=== PATIENT | male | born 1960 | race Caucasian/White ===

== ENCOUNTER 2018-10-08 16:53 | Inpatient (IN) ==
[2018-10-08] MEDS ORDERED: ASPIRIN PO ONE (17:08)
--- NOTE | 2018-10-08 18:02 | Diag Imaging Result Doc PS360 ---
EXAM: CHEST-2 VIEWS 10/08/2018 HISTORY: chest pain TECHNIQUE: PA and lateral chest COMMENT: There is diffuse interstitial opacity throughout the left lung with denser areas of ill-defined opacity in the base. There is dense opacification of the right lower lobe and there is blunting of the right costophrenic angle. The heart size and pulmonary vascularity are within normal limits. These findings were not present on 08/21/2015. IMPRESSION: Pneumonia with possible pulmonary edema and dense lobar pneumonia in the right lower lobe. Right pleural effusion. Advise follow-up until clear. Electronically signed by Anthony Bustamante 10/08/2018 5:59 PM
[2018-10-08 18:05] LABS: INR 0.97; PROTIME 13.4 Seconds (11.0-16.0)
[2018-10-08 18:06] LABS: PTT 36.5 Seconds (22.3-41.8)
[2018-10-08 18:19] LABS: ESTIMATED GFR > 60
[2018-10-08] MEDS ORDERED: ROCEPHIN 1 GM in NS 50 ML IV ONE (18:19)
[2018-10-08] MEDS ORDERED: ZITHROMAX 500 MG/NS 500 MG/250 ML IVPB IV ONE (18:19)
[2018-10-08 18:22] LABS: BE 2.8 mmoll (-3.0-3.0); BLOOD TYPE ARTERIAL; HCO3-(ACT) 26.8 mmoll (20.0-26.0); O2(CT) 17.4 mL/dL (15.0-23.0); PCO2(98.6) 35 mmHg (35-45); SAMPLE BLOOD; SAO2 90.8 % (95.0-100.0); THB 14.2 g/dL (11.5-17.4); pH(98.6) 7.48 (7.35-7.45)
[2018-10-08 18:30] LABS: AGAP 16; ALBUMIN 2.5 g/dL (3.5-5.0); ALKALINE PHOSPHATASE 52 U/L (32-122); BUN 14 mg/dL (8-22); CHLORIDE 81 mmol/L (98-107); CK PROFILE 29 U/L (24-204); COSMO 245; GLUCOSE 103 mg/dL (70-104); GOT 27 U/L (10-34); GPT 13 U/L (10-44); POTASSIUM 2.9 mmol/L (3.5-5.1); SODIUM 121 mmol/L (136-145); TCO2 24 mmol/L (25-35)
[2018-10-08] MEDS ORDERED: DUONEB (A & A) INH ONE ×2 (18:43→20:32)
[2018-10-08] MEDS ORDERED: KLOR-CON PO ONE (18:57)
[2018-10-08] MEDS ORDERED: NS 1,000 ML IV ONE (18:57)
--- NOTE | 2018-10-08 19:11 | EKG Report ---
Test Performed on : 10/08/2018 5:10:39 PM Test Reason : chest pain Blood Pressure : / mmHG Vent. Rate : 126 BPM Atrial Rate : 159 BPM P-R Int : 168 ms QRS Dur : 090 ms QT Int : 288 ms P-R-T Axes : 075 029 069 degrees QTc Int : 417 ms Sinus tachycardia. with premature atrial complexes. Otherwise normal ECG No previous ECGs available Unconfirmed Result
[2018-10-08 19:15] LABS: PO2(98.6) 49 mmHg (60-100)
[2018-10-08 19:23] LABS: ALLEN TEST YES; MODALITY CANNULA
[2018-10-08 19:24] LABS: O2HB 87.4 % (95.0-99.0)
[2018-10-08] MEDS ORDERED: NS 1,000 ML ONE (19:39)
[2018-10-08] MEDS ORDERED: NS 500 ML IV ONE (19:47)
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
[2018-10-08 20:14] LABS: EOS# 0.02 X1000 (0.0-0.7); EOS% 0.8 % (0.0-10.0); HEMATOCRIT 36.6 % (42.0-52.0); HEMOGLOBIN 13.9 g/dL (14.0-18.0); IMM GRAN# 0.02 X1000 (0.0-0.04); IMM GRAN% 0.8 % (0.0-0.5); LYMPH# 0.17 X1000 (1.2-3.4); LYMPH% 6.7 % (20.5-51.1); MCH 33.1 PG (27-31); MCV 87.1 FL (81-99); MONO# 0.03 X1000 (0.11-0.59); MONO% 1.2 % (1.7-9.3); MPV 9.2 FL (7.4-10.4); NEUT# 2.28 X1000 (1.4-6.5); NEUT% 90.5 % (42.2-75.2); PLT 315 X1000 (130-400); RDW 12.1 % (11.5-14.5); WBC 2.52 X1000 (4.8-10.8)
[2018-10-08 20:20] LABS: BANDS 16 % (0-1); HYPOCHROM 3+; LYMPHS 6 % (21-51); MONO 4 % (1-9); SEGS 74 % (42-75)
[2018-10-08 20:21] LABS: LARGE PLATELETS 2+
[2018-10-08] MEDS ORDERED: LANOXIN IV ONE (21:47)
--- NOTE | 2018-10-08 21:50 | EKG Report ---
Test Performed on : 10/08/2018 9:40:34 PM Test Reason : tachycardia Blood Pressure : / mmHG Vent. Rate : 163 BPM Atrial Rate : 159 BPM P-R Int : 000 ms QRS Dur : 094 ms QT Int : 284 ms P-R-T Axes : 000 026 057 degrees QTc Int : 467 ms Atrial fibrillation. with rapid ventricular response. Nonspecific T wave abnormality Abnormal ECG When compared with ECG of 08-OCT-2018 21:39, (Unconfirmed) No significant change was found Unconfirmed Result
[2018-10-08] MEDS ORDERED: DOXYCYCLINE 100 MG in NS 250 ML IV SCH (22:15)
[2018-10-08] MEDS ORDERED: CARDIZEM 125/NS 125 MG/125 ML IVPB ONE (22:20)
[2018-10-08] MEDS: CARDIZEM 100 MG/NS 100 MG/100 ML IVPB IV SCH ×2 (22:35→23:38)
[2018-10-08] MEDS ORDERED: NICODERM PATCH ONE (23:30)
[2018-10-08] MEDS ORDERED: NICODERM PATCH TD ONE (23:30)
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
[2018-10-09] MEDS: LIBRIUM PO SCH ×4 (01:31→21:49)
[2018-10-09] MEDS: FLAGYL 500 MG/NS 500 MG/100 ML IVPB IV SCH ×3 (01:31→13:54)
[2018-10-09] MEDS ORDERED: CARDIZEM 125 MG/D5W 125 MG/125 ML IVPB ONE (03:38)
[2018-10-09] MEDS ORDERED: CARDIZEM 125 MG/D5W 125 MG/125 ML IVPB IV SCH (05:42)
[2018-10-09] MEDS ORDERED: ATROPINE SYRINGE ONE ×2 (06:50→12:15)
[2018-10-09] MEDS ORDERED: EPINEPHRINE SYRINGE ONE ×2 (06:50→12:15)
[2018-10-09] MEDS ORDERED: AMIDATE ONE (06:53)
[2018-10-09] MEDS ORDERED: QUELICIN ONE (06:53)
[2018-10-09] MEDS ORDERED: DIPRIVAN 1% 1,000 MG/100 ML BOTTLE ONE ×2 (06:54→10:08)
[2018-10-09 07:19] LABS: HEMATOCRIT 40.5 % (42.0-52.0); HEMOGLOBIN 15.2 g/dL (14.0-18.0); MCHC 37.5 g/dL (33-37); MPV 9.1 FL (7.4-10.4); RBC 4.6 XMIL (4.7-6.1); RDW 12.3 % (11.5-14.5); WBC 3.43 X1000 (4.8-10.8)
--- NOTE | 2018-10-09 07:20 | Diag Imaging Result Doc PS360 ---
EXAM: CHEST-PORTABLE - 10/09/2018 HISTORY: pneumonia TECHNIQUE: Portable chest COMPARISON: 10/08/2018 FINDINGS: There is right lower lung consolidation similar to prior. There is apparent underlying right pleural effusion. There is increased consolidation at the mid to lower left lung compared to prior. There is no pneumothorax identified. The heart borders are largely obscured by consolidation. IMPRESSION: Right lower lung consolidation, with apparent underlying pleural effusion, similar to prior. Increased consolidation at the mid and lower left lung. Electronically signed by Clarke Prather 10/09/2018 7:18 AM
[2018-10-09] MEDS ORDERED: ATROPINE IV ONE (07:25)
[2018-10-09] MEDS ORDERED: AMIDATE IV ONE (07:25)
[2018-10-09] MEDS ORDERED: QUELICIN IV ONE (07:25)
[2018-10-09] MEDS ORDERED: EPINEPHRINE SYRINGE IV ONE (07:25)
[2018-10-09 07:40] LABS: BLOOD TYPE ARTERIAL; METHB 0.5 % (0.0-1.5); O2(CT) 23.9 mL/dL (15.0-23.0); O2HB 93.2 % (95.0-99.0); PO2(98.6) 90 mmHg (60-100); SAMPLE BLOOD; SAO2 95.9 % (95.0-100.0); SRATE 14 BPM; THB 18.2 g/dL (11.5-17.4); TVOL 600 mL
[2018-10-09 08:02] LABS: HCO3-(ACT) 15.5 mmoll (20.0-26.0); PCO2(98.6) 94 mmHg (35-45); pH(98.6) 6.99 (7.35-7.45)
[2018-10-09 08:03] LABS: BE -11.9 mmoll (-3.0-3.0); MODALITY VENTILATOR
[2018-10-09 08:04] LABS: ALLEN TEST YES
[2018-10-09 08:25] LABS: ESTIMATED GFR > 60
[2018-10-09 08:27] LABS: AGAP 18; ALBUMIN 2.2 g/dL (3.5-5.0); ALKALINE PHOSPHATASE 58 U/L (32-122); BUN 14 mg/dL (8-22); CALCIUM 7.7 mg/dL (8.8-10.2); CHLORIDE 87 mmol/L (98-107); COSMO 253; CREATININE 0.8 mg/dL (0.7-1.2); GLUCOSE 83 mg/dL (70-104); GOT 40 U/L (10-34); GPT 15 U/L (10-44); SODIUM 126 mmol/L (136-145); TCO2 22 mmol/L (25-35); TOTAL PROTEIN 5.9 g/dL (6.3-8.3)
[2018-10-09] MEDS ORDERED: VANCOMYCIN IV PER PHARMACY MISC SCH (09:00)
[2018-10-09] MEDS: NEO-SYNEPHRINE 50 MG in NS 250 ML IV SCH ×2 (09:05→19:23)
[2018-10-09] MEDS ORDERED: DUONEB (A & A) INH PRN (09:43)
[2018-10-09] MEDS: NS 1,000 ML IV SCH ×2 (10:00→17:06)
[2018-10-09] MEDS ORDERED: VANCOMYCIN 2,000 MG in NS 500 ML IV ONE (10:00)
[2018-10-09 10:15] LABS: BLOOD TYPE ARTERIAL; SAMPLE BLOOD
--- NOTE | 2018-10-09 10:21 | Diag Imaging Result Doc PS360 ---
EXAM: CHEST-PORTABLE - 10/09/2018 HISTORY: Line Placement TECHNIQUE: Portable chest COMPARISON: Prior exam of 10/09/2018 FINDINGS: There has been interval insertion of an endotracheal tube. The dion is somewhat indistinct, but the tip of the endotracheal tube appears be located approximately 7.5 cm above the dion. There has been interval insertion of a nasogastric tube, which can be followed to the mid stomach. Inspiration is deeper compared to prior. There is right lower lung infiltrate similar to prior. Infiltrate at the mid and lower left lung appears mildly decreased compared to prior, but this may be exaggerated by the deeper inspiration. There is no pneumothorax identified. Heart size appears normal. IMPRESSION: Tip of endotracheal tube in satisfactory position approximately 7.5 cm above dion. Nasogastric tube extending to mid stomach. Bilateral infiltrates similar to prior, allowing for deeper inspiration on the current exam. Electronically signed by Clarke Prather 10/09/2018 10:19 AM
[2018-10-09 11:02] LABS: BE -5.9 mmoll (-3.0-3.0); HCO3-(ACT) 20.3 mmoll (20.0-26.0); METHB 1.3 % (0.0-1.5); O2(CT) 19.3 mL/dL (15.0-23.0); O2HB 95.2 % (95.0-99.0); PCO2(98.6) 53 mmHg (35-45); PO2(98.6) 109 mmHg (60-100); SAO2 98.2 % (95.0-100.0); SRATE 20 BPM; THB 14.3 g/dL (11.5-17.4); TVOL 560 mL; pH(98.6) 7.23 (7.35-7.45)
[2018-10-09 11:04] LABS: MODALITY VENTILATOR
[2018-10-09 11:05] LABS: ALLEN TEST YES
[2018-10-09] MEDS: DUONEB (A & A) INH SCH ×4 (12:00→23:30)
[2018-10-09 12:34] LABS: ESTIMATED GFR > 60
[2018-10-09 12:51] LABS: AGAP 15; BUN 18 mg/dL (8-22); CALCIUM 7.1 mg/dL (8.8-10.2); CHLORIDE 89 mmol/L (98-107); COSMO 257; CREATININE 0.9 mg/dL (0.7-1.2); GLUCOSE 91 mg/dL (70-104); SODIUM 127 mmol/L (136-145); TCO2 23 mmol/L (25-35)
[2018-10-09] MEDS: DIPRIVAN 1% 1,000 MG/100 ML BOTTLE IV SCH ×3 (12:58→19:21)
[2018-10-09] MEDS ORDERED: DOXYCYCLINE 100 MG in NS 250 ML IV SCH (14:00)
[2018-10-09] MEDS ORDERED: ROCEPHIN 1 GM in NS 50 ML IV SCH (18:00)
[2018-10-09 18:10] LABS: URINE SOURCE CATH
[2018-10-09 18:15] LABS: BILIRUBIN URINE NEGATIVE (NEGATIVE); BLOOD URINE NEGATIVE (NEGATIVE); COLOR YELLOW; GLUCOSE URINE NEGATIVE (NEGATIVE); KETONE URINE NEGATIVE (NEGATIVE); LEUKOCYTES URINE NEGATIVE (NEGATIVE); NITRITE URINE NEGATIVE (NEGATIVE); PH URINE 5.5; PROTEIN URINE 30 mg/dL (NEGATIVE); SP GRAVITY URINE 1.008; TURBIDITY URINE HAZY (CLEAR); UROBILINOGEN URINE NORMAL (NORMAL)
[2018-10-09 18:18] LABS: UR EPITHELIAL CELLS <10 /HPF (<10); URINE BACTERIA NEGATIVE /HPF; URINE RBC <10 /HPF (<10); URINE WBC <10 /HPF (<10)
[2018-10-09] MEDS ORDERED: MAXIPIME 1 GM in NS 50 ML IV SCH (18:30)
[2018-10-09 18:35] LABS: URINE YEAST NONE SEEN
[2018-10-09 18:36] LABS: URINE CASTS GRANULAR PRESENT; URINE CRYSTALS NONE SEEN; URINE SMALL ROUND CELLS NONE SEEN
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
--- NOTE | 2018-10-09 20:27 | PROVIDER PROGRESS NOTE ---
Progress Note Case evaluated. Full dictation to follow.
[2018-10-09 21:03] LABS: AGAP 15; BUN 20 mg/dL (8-22); CHLORIDE 92 mmol/L (98-107); COSMO 260; CREATININE 1.1 mg/dL (0.7-1.2); ESTIMATED GFR > 60; GLUCOSE 72 mg/dL (70-104); POTASSIUM 3.5 mmol/L (3.5-5.1); SODIUM 129 mmol/L (136-145); TCO2 22 mmol/L (25-35)
[2018-10-09 21:06] LABS: CALCIUM 6.7 mg/dL (8.8-10.2)
[2018-10-09] MEDS ORDERED: ATIVAN IV PRN (21:31)
[2018-10-09] MEDS ORDERED: ATIVAN IV ONE (21:35)
[2018-10-09] MEDS: LEVAQUIN 500 MG/D5W 500 MG/100 ML IVPB IV SCH (21:49)
[2018-10-09] MEDS: M.V.I.-12 10 ML, FOLIC ACID 1 MG, MAGNESIUM SULFATE 1 GM, THIAMINE 100 MG in NS 1,000 ML IV SCH (21:49)
[2018-10-09] MEDS: PROTONIX IV SCH (21:50)
[2018-10-09] MEDS: SODIUM CHLORIDE 0.9% INJ SCH (21:50)
[2018-10-09] MEDS: ATIVAN 20 MG in NS 190 ML IV SCH (21:55)
[2018-10-09 22:56] LABS: ALBUMIN 2.1 g/dL (3.5-5.0); MAGNESIUM 1.7 mg/dL (1.5-2.7)
--- NOTE | 2018-10-09 23:08 | CONSULTATION ---
DATE OF CONSULTATION: 10/09/2018 REQUESTING PROVIDER: YING Kelly. REASON FOR CONSULTATION: Intubated, respiratory failure. HISTORY OF PRESENT ILLNESS: This is a 57-year-old male with no significant medical history. He presented to the [facility] ER yesterday afternoon with worsening chest pain and shortness of breath for 1 week. Initial workup in the ER revealed right lower lobe pneumonia, electrolyte abnormalities, leukopenia, supraventricular tachycardia, and bacteremia. He had been admitted to the [facility] ICU for further evaluation and management. Early this morning, at 6:42 a.m., the patient was found with cardiac arrest. He regained in 2 minutes after 1 mg of Epi and 1 mg of atropine. He was intubated and sedated with propofol since then. This afternoon at 4 p.m., he was transferred to our facility. At the time of my examination, patient is still intubated and sedated with no acute distress. The patient's brother and son are at the bedside. They reports that patient has been coughing for years; patient is a heavy smoker and a heavy drinker. PHYSICAL EXAMINATION: General: The patient appears chronically ill and disheveled. HEENT: Atraumatic. Trachea midline. ET tube in place. Mucosa pink and dry. Respiratory: Mechanically ventilated. Symmetrical excursion. Auscultation reveals coarse breathing sounds with rhonchi and inspiratory crackles bilaterally. Cardiovascular: Irregularly irregular with S1 and S2 noted. Gastrointestinal: Bowel sounds present in all 4 quadrants. Soft and mild, distended. Extremities: No pedal edema. No cyanosis. No clubbing. Neurologic: Sedated and unresponsive to verbal or physical stimuli. LAB DATA: White blood cells 3.43, hemoglobin 15.2, hematocrit 40.5, platelets 344,000. Sodium 127, potassium 3.0, chloride 89, carbon dioxide 23, BUN 18, creatinine 0.9. Glucose 91. ABG, pH 7.23, pCO2 of 53, pO2 of 109, HCO3 is 20.3, base excess -5.9, oxyhemoglobin 95.2, and lactate 3. IMAGING DATA: Chest x-ray revealed stable right lower lung infiltrates with mildly decreased infiltrate at the mid and lower left lung. ASSESSMENT: This is a 57-year-old male with no significant medical history. He has been transferred from [facility] ICU status post cardiac arrest. He was initially admitted to the [facility] ICU with right lower lobe pneumonia, electrolyte abnormalities secondary to beer potomania, leukopenia, supraventricular tachycardia, and bacteremia 1. Acute hypoxemic hypercapnic respiratory failure requiring intubation. 2. Status post cardiac arrest. 3. Right lower lobe pneumonia. 4. Septic shock. 5. Tobacco abuse. 6. Alcohol abuse. PLAN: 1. Continue mechanical ventilator and we will start weaning trials when appropriate. 2. Continue antibiotics per Dr. Cruz. 3. Continue phenylephrine as needed and fluid replacement. Be cautious with fluid replacement. ProBNP 1764 yesterday. 4. Follow up with ABG, CBC, BMP, and chest x-ray. 5. Continue GI and DVT prophylaxis. 6. Further recommendations pending hospital course. Thank you for the courtesy of this consult. Dictated by YING Tafoya for Ivania Hernandez MD cc: YING Tafoya MD [facility]
[2018-10-09] MEDS ORDERED: CALCIUM GLUCONATE 1 GM in NS 50 ML IV ONE (23:54)
[2018-10-10] MEDS ORDERED: DOXYCYCLINE 100 MG in NS 250 ML IV SCH (02:00)
[2018-10-10] MEDS: DUONEB (A & A) INH SCH ×6 (03:30→23:30)
[2018-10-10] MEDS: VANCOMYCIN 1,700 MG in NS 250 ML IV SCH ×2 (03:44→22:09)
[2018-10-10] MEDS: LIBRIUM PO SCH ×4 (03:46→22:14)
[2018-10-10] MEDS ORDERED: VANCOMYCIN 1,700 MG in NS 250 ML IV SCH (04:00)
[2018-10-10 05:24] LABS: ALLEN TEST YES; BLOOD TYPE ARTERIAL; HCO3-(ACT) 20.7 mmoll (20.0-26.0); METHB 1.8 % (0.0-1.5); O2(CT) 15.9 mL/dL (15.0-23.0); PCO2(98.6) 50 mmHg (35-45); PO2(98.6) 53 mmHg (60-100); SAMPLE BLOOD; SRATE 20 BPM; THB 13.2 g/dL (11.5-17.4); TVOL 500 mL; pH(98.6) 7.26 (7.35-7.45)
[2018-10-10 05:25] LABS: MODALITY VENTILATOR
[2018-10-10] MEDS: CARDIZEM 125 MG/D5W 125 MG/125 ML IVPB IV SCH ×3 (05:55→20:33)
[2018-10-10] MEDS: NS 1,000 ML IV SCH (05:59)
[2018-10-10 06:30] LABS: ESTIMATED GFR > 60
[2018-10-10] MEDS ORDERED: D50W SYRINGE IV ONE (06:42)
[2018-10-10] MEDS ORDERED: D50W SYRINGE ONE (06:47)
[2018-10-10 07:04] LABS: AGAP 11; ALB/GLOB RATIO 0.4; ALBUMIN 1.5 g/dL (3.5-5.0); ALKALINE PHOSPHATASE 61 U/L (32-122); BUN 20 mg/dL (8-22); CALCIUM 7.5 mg/dL (8.8-10.2); CHLORIDE 94 mmol/L (98-107); COSMO 256; CREATININE 1.1 mg/dL (0.7-1.2); GLUCOSE 62 mg/dL (70-104); GOT 36 U/L (10-34); GPT 11 U/L (10-44); POTASSIUM 3.1 mmol/L (3.5-5.1); SODIUM 127 mmol/L (136-145); TCO2 22 mmol/L (25-35); TOTAL BILIRUBIN 0.32 mg/dL (0.20-1.00); TOTAL PROTEIN 4.9 g/dL (6.3-8.3)
[2018-10-10] MEDS: NEO-SYNEPHRINE 50 MG in NS 250 ML IV SCH ×2 (07:22→18:06)
[2018-10-10] MEDS: ATIVAN 20 MG in NS 190 ML IV SCH ×3 (07:22→19:27)
--- NOTE | 2018-10-10 07:38 | Diag Imaging Result Doc PS360 ---
CHEST-1 VIEW - 10/10/2018 INDICATION: SOB COMPARISON: 10/09/2018 FINDINGS: The endotracheal tube is higher than on the previous film, now at T1. Nasogastric tube is in stable position in the stomach. There has been worsening in the dense bibasilar infiltrates. There is a moderate right and small left pleural effusion. IMPRESSION: 1. Endotracheal tube is higher on this exam now at T1. 2. Worsening bibasilar infiltrates. Electronically signed by Mateo Campos 10/10/2018 7:36 AM
[2018-10-10 07:40] LABS: BASO# 0.01 X1000 (0.0-0.2); BASO% 0.1 % (0.0-0.8); EOS# 0.04 X1000 (0.0-0.7); EOS% 0.3 % (0.0-10.0); HEMOGLOBIN 13.1 g/dL (14.0-18.0); IMM GRAN# 0.15 X1000 (0.0-0.04); IMM GRAN% 1.1 % (0.0-0.5); LYMPH# 0.16 X1000 (1.2-3.4); LYMPH% 1.2 % (20.5-51.1); MCH 32.9 PG (27-31); MCHC 36.4 g/dL (33-37); MCV 90.5 FL (81-99); MONO# 0.08 X1000 (0.11-0.59); MONO% 0.6 % (1.7-9.3); MPV 9.3 FL (7.4-10.4); NEUT# 12.95 X1000 (1.4-6.5); NEUT% 96.7 % (42.2-75.2); PLT 180 X1000 (130-400); RBC 3.98 XMIL (4.7-6.1); RDW 12.6 % (11.5-14.5); WBC 13.39 X1000 (4.8-10.8)
[2018-10-10] MEDS ORDERED: NS 1,000 ML IV SCH (07:55)
[2018-10-10] MEDS ORDERED: LASIX IV ONE (07:59)
[2018-10-10] MEDS ORDERED: NS 250 ML ONE (08:14)
[2018-10-10 08:15] LABS: LYMPHS 1 % (21-51); SEGS 99 % (42-75)
[2018-10-10] MEDS: POTASSIUM CHLORIDE 20 MEQ/SWI 20 MEQ/100 ML IVPB IV SCH ×2 (08:20→10:21)
[2018-10-10] MEDS: LEVAQUIN 500 MG/D5W 500 MG/100 ML IVPB IV SCH (08:21)
--- NOTE | 2018-10-10 08:30 | PROGRESS NOTE ---
DATE: 10/10/2018 SUBJECTIVE: This patient is still on mechanical ventilation and sedated. At this moment, he is in atrial fibrillation with rapid ventricular response, Cardiology department has been consulted. We have a positive blood culture that showed gram-positive cocci, a sputum culture also showed gram-positive cocci. He does have some bilateral worsening bilateral infiltrate. I will decrease the rate of the IV fluids. I have requested an evaluation by the dietitian to put this patient on a tube feeding, sodium and potassium level are low, I will replace the potassium. He is on pressors. He seems to have poor prognosis. OBJECTIVE: Vital Signs: Temperature 98.6 degrees, pulse 133, respiratory rate 34, blood pressure 111/67, oxygen saturation 93 on mechanical ventilation. HEENT: Head normocephalic. No trauma. PERRLA Neck: Supple. No JVD. Central trachea. Chest: Coarse breath sounds bilaterally with crackles and rhonchi which are generalized. Abdomen: Soft, nontender. No hepatosplenomegaly. Extremities: No edema, no clubbing, no cyanosis. Neurological: The patient is on mechanical ventilation and sedated. LABORATORY: WBC 13.3, hemoglobin 13.1, hematocrit 36, platelets 180,000. pH 7.2, pCO2 50, PO2 53. Sodium 127, potassium 3.1, chloride 94, bicarbonate 22, BUN 20, creatinine 1.1 glucose 62, calcium 7.5, albumin 1.5. ASSESSMENT AND PLAN: 1. Acute hypoxemic and hypercarbic respiratory failure, likely secondary to pneumonia. Also this patient apparently had a cardiac arrest and placed on mechanical ventilation, Pulmonary Department on board. Continue to monitor. 2. Status post cardiac arrest. He does not have significant past medical history other than bronchitis, but probably he is an alcoholic, we will continue with the same management. At this moment, this patient is in atrial fibrillation, Cardiology Department has been consulted. 3. Bilateral pneumonia with possible pleural effusion, this patient has been placed on antibiotics. We have a positive sputum culture that showed gram-positive cocci, Infectious Disease Department on board. 4. Bacteremia, secondary to gram-positive cocci. This patient is getting antibiotics. Infectious Disease on board. 5. Septic shock. This patient is on pressors, and also he is status post cardiac arrest. I have requested an echocardiogram. 6. Hyponatremia. I will continue with fluids. I will start feeding this patient through the NG tube. Probably this is chronic secondary to beer potomania. 7. Hypokalemia. Will replace the potassium. 8. Admitted due to hemoptysis as well, Pulmonary on board. We will continue to monitor. Probably secondary to his pneumonia. 9. Chronic alcohol abuse and probably withdraw symptoms. This patient at this moment is on mechanical ventilation and sedated, will continue with the same management for now. 10. Atrial fibrillation with rapid ventricular response. We have placed this patient on Cardizem drip Cardiology Department has been consulted. This patient seems to be remarkably sick. No family members at the bedside at this moment, probably he has an alcoholic, not quite sure if he is a smoker as well, I do not have any past medical history other than bronchitis, Pulmonary Department, Infectious Disease Department, and now Cardiology will be on board. cc: Maximiliano Braxton MD
[2018-10-10 08:37] LABS: INR 1.04; PROTIME 14.5 Seconds (11.0-16.0)
--- NOTE | 2018-10-10 08:46 | Diag Imaging Result Doc PS360 ---
CHEST-PORTABLE - 10/10/2018 8:13 AM INDICATION: ET tube placement COMPARISON: 5:35 AM FINDINGS: The endotracheal tube is grossly stable at about T1-T2. Other findings are stable. IMPRESSION: Stable high intubation. Electronically signed by Mateo Campos 10/10/2018 8:43 AM
--- NOTE | 2018-10-10 09:20 | EKG Report ---
Test Performed on : 10/10/2018 04:26:16 AM Test Reason : A-FIB Blood Pressure : / mmHG Vent. Rate : 133 BPM Atrial Rate : 125 BPM P-R Int : 000 ms QRS Dur : 096 ms QT Int : 266 ms P-R-T Axes : 000 052 088 degrees QTc Int : 395 ms Atrial fibrillation. with rapid ventricular response. Nonspecific ST and T wave abnormality Abnormal ECG When compared with ECG of 10-OCT-2018 04:25, (Unconfirmed) Nonspecific T wave abnormality now evident in Inferior leads Confirmed by Tegan LOZANO, Rene ([id number]) on 10/10/2018 11:42:35 AM
--- NOTE | 2018-10-10 11:45 | CARDIOLOGY CONSULTATION ---
DATE: 10/10/2018 HISTORY OF PRESENT ILLNESS: Cardiology was consulted for atrial fibrillation. Patient is intubated. History was obtained from the chart. Discussing with his family, this is a 57-year- old gentleman, who was noted to have increasing shortness of breath and cough with mucoid to mucopurulent expectoration. The patient was brought to the emergency room, was noted to have bloody liquid sputum over the last few days as well. Per family, he was subsequently intubated because of respiratory failure. REVIEW OF SYSTEMS: Could not be obtained from the patient. PAST MEDICAL HISTORY: Nothing documented. He does not take any medications. He has not seen a physician in many years. The patient is a smoker and he drinks alcohol, has been drinking for more than 30 years. Drinks up to 12 beers in addition to hard liquor on almost a daily basis. This was per his brother. He also has used illicit drugs. PHYSICAL EXAMINATION: Vital Signs: Blood pressure on pressors was 100/64, heart rate 96. Cardiovascular System: Jugular venous pressure could not be assessed. First and second heart sounds were heard. There was no S3 gallop. Respiratory System: Bilateral scattered wheeze and crepitations noted. Abdomen: Soft. Central nervous system: Could not be assessed. ASSESSMENT AND PLAN: Mr. Froilan Almanza is a 57-year-old gentleman, who was an alcoholic with smoking abuse. He has been having cough with mucoid to mucopurulent expectoration for a week or so. The patient is admitted and intubated. 1. He has right lower lobe pneumonia. 2. Significant electrolyte imbalance with hyponatremia, hypokalemia and hypomagnesemia which has been corrected. 3. He has got pneumonia and he has been started on antibiotics. From a cardiac standpoint, his echocardiogram revealed preserved left ventricular systolic function. See detailed report. He is on a Cardizem drip in addition to Jamari-Synephrine. RECOMMENDATIONS: Continue supportive care. I suspect treating his pneumonia and correcting his electrolyte imbalance, he will be back in sinus rhythm. Thank you for the consult. We will follow hospital course. cc: Balwinder Eastman MD
--- NOTE | 2018-10-10 13:09 | EKG Report ---
Test Performed on : 10/10/2018 12:03:14 PM Test Reason : afib Blood Pressure : / mmHG Vent. Rate : 100 BPM Atrial Rate : 104 BPM P-R Int : 000 ms QRS Dur : 102 ms QT Int : 378 ms P-R-T Axes : 000 029 055 degrees QTc Int : 487 ms Atrial fibrillation. Prolonged QT Abnormal ECG When compared with ECG of 10-OCT-2018 04:26, ST no longer depressed in Anterior leads Nonspecific T wave abnormality no longer evident in Inferior leads Nonspecific T wave abnormality no longer evident in Lateral leads Confirmed by Tegan LOZANO, Rene ([id number]) on 10/13/2018 8:56:55 AM
--- NOTE | 2018-10-10 13:39 | INFECTIOUS DISEASE PROGRESS NO ---
DATE: 10/10/2018 HISTORY OF PRESENT ILLNESS: Mr. Almanza is being treated for pneumonia as well as gram-positive cocci bacteremia. He is status post cardiac arrest, and is sedated on the mechanical ventilator. MEDICATIONS: He is receiving IV vancomycin per pharmacy dosing and IV Levaquin 500 mg daily has been added by Dr. Hernandez. PHYSICAL EXAMINATION: Vital Signs: Temperature is 98.5 degrees, pulse rate 124, respiratory rate 21, blood pressure 122/60, O2 saturation 93% on 100% FiO2 on the mechanical ventilator. General: This is a chronically ill-appearing, middle-aged gentleman, lying in the bed on the mechanical ventilator. He is sedated and intubated. HEENT: Atraumatic, normocephalic. Oral mucous membranes are pink and dry. Conjunctivae are pink. Respiratory: Lung sounds with rales and rhonchi noted bilaterally. He is breathing over the set rate on the mechanical ventilator. Cardiovascular: Irregularly irregular with atrial fibrillation on the monitor. Abdomen: Soft, round, nondistended. Bowel sounds are active. There is an NG tube in place to low wall suction. Integumentary: Skin is warm and dry. LABORATORY AND X-RAY: Today, his white count is 13.39, hemoglobin 13.1, platelet count 180,000. On 80% FiO2 this morning on the mechanical ventilator, his pH was 7.26, pCO2 50, pO2 53, HCO3 20.7. Creatinine 1.1. Estimated GFR is greater than 60. Total bilirubin is 0.32, AST 36, ALT 11, alkaline phosphatase 61. His most recent sputum specimen has gram-positive cocci in the Gram stain. Blood cultures show gram-positive cocci in both specimens. Chest x-ray today shows worsening bibasilar infiltrates. ASSESSMENT AND PLAN: Mr. Almanza is being treated for pneumonia and bacteremia. He is receiving IV vancomycin, and Dr. Hernandez has added IV Levaquin. There is some worsening in the x-ray today. His white count has gone from low to high at this point. We will continue to await final culture reports. These plans have been discussed with and recommended by Dr. Cruz. COMORBIDITIES: For Mr. Almanza include cigarette smoking, COPD, and alcohol abuse. Dictated by YING Vincent for Sergey Cruz MD cc: Sergey Cruz MD [facility]
--- NOTE | 2018-10-10 14:14 | Diag Imaging Result Doc PS360 ---
EXAM: CHEST-PORTABLE HISTORY: central line placement TECHNIQUE: Portable chest COMPARISON: 8:13 AM FINDINGS: Interval placement of a right subclavian line. The tip is near the junction of the right atrium and superior vena cava. No postprocedural pneumothorax. No other interval change. IMPRESSION: No postprocedural pneumothorax following placement of the right subclavian line. Electronically signed by Gareth Garcia 10/10/2018 2:11 PM
[2018-10-10] MEDS: ALBUMIN 25% IV SCH ×2 (15:02→22:13)
[2018-10-10] MEDS ORDERED: D10W IV SCH (15:15)
[2018-10-10] MEDS ORDERED: SODIUM BICARBONATE IV SCH (15:15)
[2018-10-10] MEDS: LASIX IV SCH ×2 (15:46→22:14)
--- NOTE | 2018-10-10 16:05 | OPERATIVE NOTE ---
PROCEDURE DATE: 10/10/2018 PREOPERATIVE DIAGNOSES: 1. Pneumonia. 2. Pulmonary failure. 3. Need for central venous access. POSTOPERATIVE DIAGNOSES: 1. Pneumonia. 2. Pulmonary failure. 3. Need for central venous access. PRINCIPAL PROCEDURE: Right subclavian central venous line. SURGEON: Dr. Johansen. ANESTHESIA: Local. ESTIMATED BLOOD LOSS: 10 mL. DRAINS: None. INDICATIONS: Froilan Almanza is a 57-year-old white male who is in our ICU critically ill on the ventilator with a diagnosis of pneumonia. We are asked to place central venous access for IV medications and cardiovascular monitoring. DESCRIPTION OF PROCEDURE: The patient was placed supine in the stretcher in the ICU 15. His head was turned to the left. His right neck, shoulder, and anterior chest were prepped and draped within a sterile field. We used local anesthetic at our puncture site. I chose the right subclavian approach. I used an 18-gauge needle and syringe and identified the right subclavian vein on the first stick. A guidewire was placed through this needle into the right side of the heart. The needle was removed. I placed a deisy in the skin at the exit site of the guidewire and then I placed a dilator over the guidewire. A silver nitrate triple-lumen central venous line was placed over the guidewire into the superior vena cava. The guidewire was removed. All 3 ports were functional and were flushed with saline. I secured the catheter to the skin with several 3-0 silk stitches followed by a dry dressing. A portable chest x-ray was called for. He tolerated the procedure well. cc: Yanet Johansen MD
[2018-10-10] MEDS: SODIUM BICARBONATE IV SCH (17:18)
[2018-10-10] MEDS: D10W IV SCH (17:18)
--- NOTE | 2018-10-10 17:55 | ECHO REPORT ---
ORDER DATE: 10/10/2018 INDICATION: Congestive heart failure. Patient on ventilator. M-MODE MEASUREMENTS: Left ventricle end diastole: 4.7. Left ventricle end systole: 2.9. Posterior wall: 0.9. Interventricular septum: 2.9. Left atrium: 3.4. Aortic diameter: 3.4. SUMMARY OF 2-DIMENSIONAL IMAGIN. Left ventricular systolic function is excellent. Ejection fraction estimated at 65%. There is some atypical contractility of the left ventricle due to predominance of the right ventricle. 2. The right ventricle is enlarged. It shows preserved function. There is some flattening of the septum during systole, suggesting pulmonary hypertension. 3. The mitral valve shows some thickening of the leaflets. Color flow mapping indicates a mild degree of regurgitation. The patient appears to be in atrial fibrillation. 4. Pulsed wave Doppler of mitral inflow shows single filling wave. 5. The aortic valve appears to be grossly unremarkable. 6. The pulmonic valve shows a trivial degree of regurgitation. The tricuspid valve shows a mild to moderate degree of regurgitation. Pulmonary pressure estimated at 51 to 56 mmHg. 7. I do not see a pericardial effusion. No masses, no thrombus. 8. The right-sided chambers are enlarged moderately. 9. The left atrium appears to be normal. 10.The inferior vena cava is not dilated. Clinical correlation recommended. cc: MD Maximiliano Martines MD
--- NOTE | 2018-10-10 18:10 | PULMONOLOGY PROGRESS NOTE ---
DATE: 10/10/2018 SUBJECTIVE: The patient is sedated. He responds to painful stimuli. OBJECTIVE: Vital Signs: Blood pressure 113/61, heart rate 99, respiratory rate 20, oxygen saturation 91% on 100% FiO2. HEENT: Pupils are equal and reactive. Oropharynx appears clear. Neck: Supple. Chest: Reveals coarse rhonchi throughout all lung [place]. Cardiac exam: S1, S2. Abdomen: Soft, without bowel sounds. Extremities: Are cool to the touch. LABORATORIES: White blood count 13.39, hemoglobin 13.1, platelet count 180,000. sodium 127, potassium 3.1, chloride 94, bicarbonate 22, BUN 20, creatinine 1.1, glucose 62, total protein 4.9, albumin 1.5. Arterial blood gas: PH 7.26, pCO2 of 50, pO2 of 53. Chest x-ray reveals diffuse bilateral infiltrates with dense consolidation at the right base, endotracheal tube in good position, central line in good position. Microbiology reveals gram-positive cocci in the sputum and in 2 blood cultures. IMPRESSION: A 57-year-old with history of alcohol use by report, who presents with: 1. Severe community-acquired pneumonia. 2. Bacteremia with septic shock. 3. Acute hypoxemic and acute hypercapnic respiratory failure. 4. Hyponatremia. 5. Severe protein calorie malnutrition. RECOMMENDATIONS: 1. Ventilatory adjustments for elevated peak pressures. 2. Initiate albumin. Will attempt diuresis to help oxygenation. 3. Continue broad-spectrum antibiotics pending results of sputum cultures. 4. Check immunoglobulin and cortisol levels. 5. Continue vasopressors. 6. Continue sedation. 7. Keep the family informed. His prognosis is guarded given his critically ill status. Time spent in critical care management: 30+ minutes cc: Fer Leung MD [facility]
[2018-10-10] MEDS: FOLIC ACID 1 MG in NS 50 ML IV SCH (22:10)
[2018-10-10] MEDS: M.V.I.-12 10 ML, FOLIC ACID 1 MG, MAGNESIUM SULFATE 1 GM, THIAMINE 100 MG in NS 1,000 ML IV SCH ×2 (22:11→22:44)
[2018-10-10] MEDS: PROTONIX IV SCH (22:14)
[2018-10-11] MEDS: ATIVAN 20 MG in NS 190 ML IV SCH ×5 (00:15→21:52)
[2018-10-11] MEDS: D10W IV SCH ×3 (02:33→22:46)
[2018-10-11] MEDS: SODIUM BICARBONATE IV SCH ×3 (02:33→22:46)
[2018-10-11] MEDS: LASIX IV SCH ×3 (03:40→22:46)
[2018-10-11] MEDS: ALBUMIN 25% IV SCH ×3 (03:41→21:50)
[2018-10-11] MEDS: LIBRIUM PO SCH (03:41)
[2018-10-11] MEDS: DUONEB (A & A) INH SCH ×6 (03:49→23:36)
[2018-10-11 05:15] LABS: ALB/GLOB RATIO 0.7; CALCIUM 7.4 mg/dL (8.8-10.2); CREATININE 1.3 mg/dL (0.7-1.2); POTASSIUM 3.2 mmol/L (3.5-5.1); TOTAL BILIRUBIN 0.3 mg/dL (0.20-1.00); TOTAL PROTEIN 4.8 g/dL (6.3-8.3)
[2018-10-11 05:19] LABS: ALLEN TEST YES; BE 1.9 mmoll (-3.0-3.0); BLOOD TYPE ARTERIAL; HCO3-(ACT) 26.4 mmoll (20.0-26.0); METHB 1.5 % (0.0-1.5); O2(CT) 16.1 mL/dL (15.0-23.0); O2HB 95.8 % (95.0-99.0); PO2(98.6) 90 mmHg (60-100); SAMPLE BLOOD; SAO2 98.9 % (95.0-100.0); SRATE 20 BPM; THB 11.9 g/dL (11.5-17.4); TVOL 470 mL; pH(98.6) 7.34 (7.35-7.45)
[2018-10-11 05:21] LABS: MODALITY VENTILATOR; PCO2(98.6) 53 mmHg (35-45)
[2018-10-11 07:00] LABS: BASO# 0.02 X1000 (0.0-0.2); BASO% 0.1 % (0.0-0.8); EOS# 0.27 X1000 (0.0-0.7); EOS% 1.2 % (0.0-10.0); HEMATOCRIT 31.7 % (42.0-52.0); HEMOGLOBIN 11.6 g/dL (14.0-18.0); IMM GRAN# 0.98 X1000 (0.0-0.04); IMM GRAN% 4.4 % (0.0-0.5); LYMPH# 0.34 X1000 (1.2-3.4); LYMPH% 1.5 % (20.5-51.1); MCH 33.1 PG (27-31); MCHC 36.6 g/dL (33-37); MCV 90.6 FL (81-99); MONO# 0.11 X1000 (0.11-0.59); MONO% 0.5 % (1.7-9.3); NEUT# 20.47 X1000 (1.4-6.5); NEUT% 92.3 % (42.2-75.2); PLT 114 X1000 (130-400); WBC 22.19 X1000 (4.8-10.8)
[2018-10-11 07:14] LABS: LYMPHS 2 % (21-51); SEGS 98 % (42-75)
[2018-10-11] MEDS: NEO-SYNEPHRINE 50 MG in NS 250 ML IV SCH (07:20)
--- NOTE | 2018-10-11 07:32 | Diag Imaging Result Doc PS360 ---
CHEST-1 VIEW - 10/11/2018 INDICATION: SOB COMPARISON: 10/10/2018 FINDINGS: Support lines and tubes are stable. There has been worsening infiltrate or pleural effusion at the left lung base. Otherwise stable extensive, dense bilateral infiltrates. Heart size remains normal. IMPRESSION: Worsening at the left lung base. Electronically signed by Mateo Campos 10/11/2018 7:30 AM
[2018-10-11] MEDS ORDERED: POTASSIUM CHLORIDE 40 MEQ/SWI 40 MEQ/100 ML IVPB IV ONE (07:42)
[2018-10-11] MEDS ORDERED: ROCEPHIN 2 GM in NS 50 ML IV ONE (08:03)
--- NOTE | 2018-10-11 08:31 | PROGRESS NOTE ---
DATE: 10/11/2018 SUBJECTIVE: The patient is on mechanical ventilation and sedated. His heart rate is controlled now. Cardiology Department on board. We have a positive culture that showed gram-positive cocci in blood and sputum. Blood showing staphylococcus pneumonia that is sensitive to current treatment. Infectious Disease Department on board as well. Since this patient has been placed on Ativan, I will hold the Librium. He is on vasopressor and Diltiazem drip. OBJECTIVE: VITAL SIGNS: Temperature 98.5 degrees, pulse 80, respiratory rate 22, blood pressure 112/50, oxygen saturation 99 on mechanical ventilation. HEENT: Head normocephalic, no trauma. PERRLA. NECK: Supple. No JVD. Central trachea. CHEST: Coarse breath sounds bilaterally with crackles and rhonchi mostly at the bases but is basically generalized. More evident on the left side. ABDOMEN: Soft, nontender, nondistended. No hepatosplenomegaly. EXTREMITIES: No edema, no clubbing, no cyanosis. NEUROLOGICAL: The patient is on mechanical ventilation and sedated. LABORATORY DATA: WBC 22.1, hemoglobin 11.6, hematocrit 31.7, platelets 114,000. Sodium 131, potassium 3.2, chloride 95, bicarbonate 26, BUN 25, creatinine 1.3, glucose 223, calcium 7.4. Albumin 2. ASSESSMENT AND PLAN: 1. Acute hypoxemic and hypercarbic respiratory failure secondary to pneumonia/effusion. This patient is also status post cardiac arrest and placed on mechanical ventilation. Pulmonary Department and Cardiology Department on board. We will continue with the same management for now. 2. Status post cardiac arrest. It looks like he does not have a significant past medical history other than bronchitis and probably also he is an alcoholic. We will continue with the same management. Cardiology Department on board. 3. Atrial fibrillation with RVR, rate controlled. Continue with the same treatment. Cardiology on board. 4. Bilateral pneumonia, more evident on the left side. Continue with antibiotics per Infectious Disease Department's recommendations. 5. Bacteremia secondary to gram-positive cocci. We have a positive culture also that showed a staphylococcal pneumonia which is sensitive to levofloxacin as well. 6. Septic shock. Continue with vasopressors. He is status post cardiac arrest. Echocardiogram showed an ejection fraction of 65% and there is some atypical contractility of the left ventricle due to predominance of the right ventricle. The right ventricle is enlarged, but it shows preserved function with some changes suggesting pulmonary hypertension. Pulmonary pressure estimated at 51-56 mmHg. The right side chambers are enlarged moderately. 7. Hyponatremia. This is getting better. Continue with same management. 8. Hypokalemia. I will replace the potassium. 9. Admitted due to hemoptysis as well. Pulmonary on board. We will continue to monitor. Probably secondary to his pneumonia. 10.Chronic alcohol abuse and probably withdrawal symptoms. This patient at this moment has been placed on mechanical ventilation and he is on Ativan drip. We will continue to monitor this patient closely. Overall his prognosis is guarded. We will continue with this management. Cardiology Department, Pulmonary Department and Infectious Disease Department on board. We will monitor this patient closely. Critical care time 40 minutes. cc: Maximiliano Braxton MD
[2018-10-11] MEDS ORDERED: CARDIZEM 125 MG in NS 100 ML IV PRN (08:45)
[2018-10-11] MEDS: CARDIZEM 125 MG in NS 100 ML IV SCH (09:10)
[2018-10-11] MEDS ORDERED: MULTI-VITAMIN MISC SCH (09:45)
[2018-10-11] MEDS: NON-FORMULARY BULK MED NG SCH (10:09)
--- NOTE | 2018-10-11 13:27 | PULMONOLOGY PROGRESS NOTE ---
DATE: 10/11/2018 SUBJECTIVE: The patient is sedated. He remains on vasopressors, but these are being weaned as tolerated. OBJECTIVE: Vital Signs: The patient has been afebrile for the last 24 hours. Blood pressure 111/63, heart rate 82, respiratory rate 21, oxygen saturation 97%, on mechanical ventilation. HEENT: Pupils are equal and reactive. Oropharynx appears clear. Neck: Supple. Chest: Coarse breath sounds bilaterally. Cardiac: S1, S2. Abdomen: Soft, with diminished bowel sounds. Extremities: +1 peripheral edema. LABORATORIES: Chest x-ray reveals dense consolidation and probable effusion at the right base, with increased infiltrates at the left base. White blood count 22,000, hemoglobin 11.6, platelet count 114,000. Sodium 131, potassium 3.2, chloride 95, bicarbonate 26, BUN 25, creatinine 1.3, glucose 223, albumin 2.0. Arterial blood gas: PH 7.34, pCO2 of 53, pO2 of 90. MICROBIOLOGY: Two blood cultures and sputum culture are positive for Streptococcus pneumoniae. IMPRESSION: A 57-year-old with history of alcohol use, who presents with: 1. Pneumococcal pneumonia. 2. Bacteremia with shock. 3. Acute hypoxemic and hypercapnic respiratory failure. 4. Severe protein-calorie malnutrition. RECOMMENDATIONS: 1. Continue ventilatory support. Minor adjustments have been made. 2. Begin tube feeds as tolerated. 3. Await immunoglobulin level to see if replacement is appropriate. 4. Change multivitamin, to be given by nasogastric tube. 5. Continue D10 and bicarbonate through the evening. Anticipate changing to ProcalAmine tomorrow. 6. Wean vasopressors as tolerated. 7. Overall prognosis is guarded, but improving. Time spent in critical care management: 30+ minutes cc: Fer Leung MD [facility]
--- NOTE | 2018-10-11 14:57 | CARDIOLOGY PROGRESS NOTE ---
DATE: 10/11/2018 SUBJECTIVE: Mr. Almanza is currently sedated on the ventilator. He is not responding to physical or verbal stimuli. OBJECTIVE: Vital Signs: Physically, he is afebrile. His heart rate is 84, blood pressure 114/62. During my examination, his heart rate was in the high 80s to low 90s. General: Generally no acute distress. Cardiovascular: He sounds to be in an irregularly irregular rate- controlled rhythm. He has no obvious murmurs. He has no S3. He has no lower extremity edema. Warm and well perfused extremities. Chest: His chest exam sounds coarse diffusely. Mechanical breath sounds are heard throughout all lung [place]. Abdomen: Soft, nontender, nondistended. He has no obvious organomegaly. PERTINENT DATA: His white count is 22 which has increased, his hematocrit is 31, platelet count is 114. He has a left shift. His sodium is 131, potassium 3.2. BUN 25, creatinine is 1.3. His pre-albumin was less than 3. His albumin is 2. ASSESSMENT: Mr. Almanza is a 57-year-old gentleman with a history presenting with pneumonia, respiratory failure, atrial fibrillation. PLAN: He is rate controlled on current medications. We will not make any acute changes to his medication regimen currently. cc: Aristides Jiang MD
[2018-10-11] MEDS: FOLIC ACID 1 MG in NS 50 ML IV SCH (21:51)
[2018-10-11] MEDS: PROTONIX IV SCH (21:51)
[2018-10-11] MEDS: ROCEPHIN 2 GM in NS 50 ML IV SCH (21:51)
[2018-10-12] MEDS: DUONEB (A & A) INH SCH ×6 (03:01→23:45)
[2018-10-12] MEDS: ATIVAN 20 MG in NS 190 ML IV SCH ×5 (03:06→23:55)
[2018-10-12 05:00] LABS: BASO# 0.04 X1000 (0.0-0.2); BASO% 0.2 % (0.0-0.8); EOS# 0.01 X1000 (0.0-0.7); HEMATOCRIT 30.5 % (42.0-52.0); IMM GRAN# 0.69 X1000 (0.0-0.04); IMM GRAN% 3.3 % (0.0-0.5); LYMPH# 0.33 X1000 (1.2-3.4); LYMPH% 1.6 % (20.5-51.1); MCH 32.4 PG (27-31); MCHC 36.1 g/dL (33-37); MCV 89.7 FL (81-99); MONO# 0.61 X1000 (0.11-0.59); MONO% 2.9 % (1.7-9.3); MPV 9.3 FL (7.4-10.4); NEUT# 19.19 X1000 (1.4-6.5); PLT 88 X1000 (130-400); RDW 13.1 % (11.5-14.5); WBC 20.87 X1000 (4.8-10.8)
[2018-10-12 05:31] LABS: ALLEN TEST YES; BE 16.6 mmoll (-3.0-3.0); BLOOD TYPE ARTERIAL; HCO3-(ACT) 37.7 mmoll (20.0-26.0); METHB 1.2 % (0.0-1.5); O2(CT) 13.9 mL/dL (15.0-23.0); PO2(98.6) 52 mmHg (60-100); SAMPLE BLOOD; SAO2 91.5 % (95.0-100.0); SRATE 20 BPM; THB 11.2 g/dL (11.5-17.4); TVOL 500 mL; pH(98.6) 7.43 (7.35-7.45)
[2018-10-12 05:32] LABS: PCO2(98.6) 66 mmHg (35-45)
[2018-10-12 05:33] LABS: MODALITY VENTILATOR; O2HB 88.5 % (95.0-99.0)
[2018-10-12 05:42] LABS: AGAP 11; ALBUMIN 2.7 g/dL (3.5-5.0); ALKALINE PHOSPHATASE 201 U/L (32-122); BUN 23 mg/dL (8-22); CALCIUM 7.8 mg/dL (8.8-10.2); CHLORIDE 91 mmol/L (98-107); COSMO 284; ESTIMATED GFR > 60; GLUCOSE 141 mg/dL (70-104); GOT 49 U/L (10-34); GPT 12 U/L (10-44); MAGNESIUM 1.6 mg/dL (1.5-2.7); SODIUM 139 mmol/L (136-145); TCO2 37 mmol/L (25-35); TOTAL BILIRUBIN 0.28 mg/dL (0.20-1.00); TOTAL PROTEIN 5.4 g/dL (6.3-8.3)
[2018-10-12] MEDS: CARDIZEM 125 MG in NS 100 ML IV SCH ×2 (05:52→17:09)
[2018-10-12 06:11] LABS: POTASSIUM 2.5 mmol/L (3.5-5.1)
[2018-10-12] MEDS ORDERED: POTASSIUM CHLORIDE 20% LIQUID NG ONE (06:32)
[2018-10-12] MEDS ORDERED: MAGNESIUM SULFATE 1 GM/D5W 1 GM/100 ML IVPB IV ONE (06:32)
[2018-10-12] MEDS: POTASSIUM CHLORIDE 20 MEQ/SWI 20 MEQ/100 ML IVPB IV SCH ×2 (07:25→09:21)
[2018-10-12] MEDS ORDERED: D5 1/2 NS 1,000 ML IV SCH (07:30)
--- NOTE | 2018-10-12 07:40 | Diag Imaging Result Doc PS360 ---
CHEST-1 VIEW - 10/12/2018 INDICATION: SOB COMPARISON: 10/11/2018 FINDINGS: Support lines and tubes are stable. Stable extensive bilateral infiltrates. There is probably at least a small right pleural effusion. No new infiltrates. Heart size remains top normal. IMPRESSION: No change from prior. Electronically signed by Mateo Campos 10/12/2018 7:38 AM
[2018-10-12] MEDS: VITAMIN B-1 PO SCH (08:00)
[2018-10-12] MEDS: NON-FORMULARY BULK MED NG SCH (08:00)
[2018-10-12] MEDS ORDERED: ROCEPHIN 1 GM in NS 50 ML IV SCH (08:00)
[2018-10-12] MEDS: ROCEPHIN 2 GM in NS 50 ML IV SCH ×2 (08:00→21:07)
--- NOTE | 2018-10-12 08:19 | PROGRESS NOTE ---
DATE: 10/12/2018 SUBJECTIVE: This patient is still on mechanical ventilation and sedated. His rate is controlled and the amount of diltiazem has been increased during the night because of tachycardia. We have a positive blood culture and sputum culture that showed streptococcal pneumonia. He is on ceftriaxone, he is no longer on pressors. We will continue to monitor. Low potassium. We will replace. OBJECTIVE: Vital Signs: Temperature 99.2 degrees, pulse 87, respiratory rate 21, blood pressure 123/65. Oxygen saturation 92% on mechanical ventilation. HEENT: Head normocephalic. No trauma. PERRLA. Neck: Supple. No JVD. No masses. Central trachea. Chest: Coarse breath sounds bilaterally with a little bit of crackles at the bases and rhonchi, mostly at the bases as well, but rhonchi mostly at the bases as well, more evident on the left side. Abdomen: Soft, nontender, nondistended. No hepatosplenomegaly. Extremities: No edema, no clubbing, no cyanosis. Neurological: The patient is on mechanical ventilation and sedated. LABORATORY: WBC 20.8, hemoglobin 11, hematocrit 30.5, and platelets 88,000. Sodium 139, potassium 2.5, chloride 91, bicarbonate 37, BUN 23, creatinine 1, glucose 141, calcium 7.8, magnesium 1.6, albumin 2.7. ASSESSMENT AND PLAN: 1. Acute hypoxemic, hypercarbic respiratory failure secondary to pneumonia/effusion. This patient is also status post cardiac arrest and placed on mechanical ventilation. Pulmonary Department and Cardiology Department on board. We will continue with the same management. 2. Status post cardiac arrest. It looks like he does not have any significant past medical history other than bronchitis and probably alcohol abuse. Continue with same treatment. Cardiology on board. 3. Atrial fibrillation with rapid ventricular response, rate controlled. Continue with Cardizem drip. 4. Bilateral pneumonia, more evident on the left side. Continue with antibiotics. Culture showed Streptococcal pneumonia. 5. Bacteremia secondary to streptococcal pneumonia. Continue with ceftriaxone per Infectious Disease Department. 6. Septic shock. He is no longer on vasopressors. He is status post cardiac arrest. Echocardiogram showed an ejection fraction of 65%, but there is some atypical contractility on the left ventricle due to prominence of the right ventricle. There is pulmonary hypertension. 7. Hyponatremia. Resolved. 8. Hypokalemia. We will replace the potassium. 9. Initially admitted due to hemoptysis as well, for now we will continue with same management. No signs of bleeding. 10. Thrombocytopenia. No signs of bleeding. Unclear etiology. We will monitor for now. 11. Likely chronic alcohol abuse and probably withdrawal symptoms. He is getting Ativan drip at this moment. He is still on mechanical ventilation. He is getting folic acid and also he will get thiamine. We will monitor this patient closely. Overall, his prognosis is guarded. We will continue with the same management. Cardiology Department, Pulmonary Department and Infectious Disease Department on board. He is tolerating his feeding tube, I will stop the D5W with bicarbonate and put him on fluids. He has some kidney dysfunction, which is getting better. CRITICAL CARE TIME: 40 minutes. cc: Maximiliano Braxton MD
[2018-10-12] MEDS ORDERED: GAMUNEX-C 10% IV ONE (09:00)
[2018-10-12] MEDS: LASIX IV SCH ×2 (09:28→17:09)
--- NOTE | 2018-10-12 10:02 | PULMONOLOGY PROGRESS NOTE ---
DATE: 10/12/2018 SUBJECTIVE: The patient is sedated. He appears to be comfortable. OBJECTIVE: Vital Signs: Current temperature 101.5 degrees, blood pressure 141/67, heart rate 99, respiratory rate 24, oxygen saturation 98%. He is currently on no vasopressors. HEENT: Pupils are equal and reactive. Oropharynx is clear. Neck: Supple. Chest: Reveals coarse rhonchi with decreased breath sounds in the bases. Cardiac Examination: S1, S2 with a regular rhythm. Abdomen: Soft. Mild increased tympany. Decreased bowel sounds. Extremities: There is 1+ peripheral edema. Laboratories: Chest x-ray reveals extensive bilateral infiltrates with probable small effusion. No change from 10/11/2018. Immunoglobulin levels reveal severe reduction in the IgG at 320 mg/dL. Sodium 139, potassium 2.5, chloride 91, bicarbonate 37, BUN 23, creatinine 1.0, albumin 2.7. White blood count 20.8, hemoglobin 11.0, platelet count 88,000. IMPRESSION: A 57-year-old with a history of alcohol use who presents with: 1. Pneumococcal pneumonia. 2. Acute hypoxemic and hypercapnic respiratory failure. 3. Severe protein calorie malnutrition. 4. Severe immunoglobulin deficiency. 5. Bacteremia with shock on presentation. RECOMMENDATIONS: 1. Continue full ventilatory support, pending improvement in pulmonary status. 2. Continue tube feeds as tolerated. 3. Replace immunoglobulin levels. Given the severity of reduction, I recommend 40 g. 4. Continue IV fluids. 5. Anticipated initiation of Clinimix or ProcalAmine. However, there is a contraindication with ceftriaxone. Time spent in critical care management: 30+ minutes cc: MD GRACIELA Ken
[2018-10-12] MEDS: D5 1/2 NS 1,000 ML IV SCH ×2 (10:12→21:07)
--- NOTE | 2018-10-12 13:50 | INFECTIOUS DISEASE PROGRESS NO ---
DATE: 10/12/2018 PRESENT ILLNESS: The patient has a pneumococcal pneumonia with an associated bacteremia. He also has an immunoglobulin deficiency. His IgG level is 320. MEDICATIONS: The patient had the vancomycin discontinued by me and I have started the patient on Rocephin 2 g IV every 12 hours. For immunoglobulin deficiency, I ordered for the patient 40 g of immunoglobulin to be given today. PHYSICAL EXAMINATION: Vital Signs: Temperature is 99.3 degrees, pulse 99, respirations 22, blood pressure 115/68. General: The patient is intubated and sedated. He appears to be chronically ill. Head/eyes/ears/nose/throat: No drainage noted from the nose or ears. The patient has an orotracheal tube in place as well as an NG tube in place. Neck: No meningismus. Lungs: Bilateral rhonchi. Cardiovascular: Heart rate is regular. Abdomen: Soft. It is somewhat distended. It is not tender. Neurologic: The patient is intubated and sedated. LABORATORY AND X-RAY: The patient's IgG level was 320. The blood and sputum are growing Streptococcus pneumoniae. CBC shows a white count of 20,870, hemoglobin 11, platelet count of 88,000. Blood gases show a pH of 7.4, PO2 of 52 and a pCO2 of 66. Creatinine is 1. GFR is greater than 60. IgG is 320. ASSESSMENT AND PLAN: 1. The patient has pneumococcal pneumonia and bacteremia for which he is receiving IV Rocephin. The patient also has an immunoglobulin deficiency, specifically with IgG and I have given the patient 40 g of immunoglobulin. 2. Comorbidities in this patient include cigarette smoking and alcohol abuse, as well as an immunoglobulin deficiency. cc: Sergey Cruz MD
[2018-10-12] MEDS ORDERED: POTASSIUM CHLORIDE 20% LIQUID PO ONE (16:31)
[2018-10-12] MEDS: PROTONIX IV SCH (21:06)
[2018-10-12] MEDS: FOLIC ACID 1 MG in NS 50 ML IV SCH (21:07)
[2018-10-13] MEDS: LASIX IV SCH (00:34)
[2018-10-13] MEDS: D5 1/2 NS 1,000 ML IV SCH ×4 (00:35→23:55)
[2018-10-13] MEDS: DUONEB (A & A) INH SCH ×6 (03:27→23:30)
[2018-10-13 04:48] LABS: ALLEN TEST YES; BE 22.3 mmoll (-3.0-3.0); BLOOD TYPE ARTERIAL; HCO3-(ACT) 42.2 mmoll (20.0-26.0); PO2(98.6) 66 mmHg (60-100); SAMPLE BLOOD; SAO2 95.7 % (95.0-100.0); SRATE 20 BPM; THB 10.7 g/dL (11.5-17.4); TVOL 500 mL; pH(98.6) 7.48 (7.35-7.45)
[2018-10-13 04:49] LABS: MODALITY VENTILATOR; PCO2(98.6) 66 mmHg (35-45)
[2018-10-13] MEDS: CARDIZEM 125 MG in NS 100 ML IV SCH ×2 (04:59→18:49)
[2018-10-13] MEDS: ATIVAN 20 MG in NS 190 ML IV SCH ×4 (05:00→21:24)
[2018-10-13 06:47] LABS: BASO# 0.04 X1000 (0.0-0.2); BASO% 0.3 % (0.0-0.8); HEMATOCRIT 31.9 % (42.0-52.0); IMM GRAN# 0.74 X1000 (0.0-0.04); IMM GRAN% 5.4 % (0.0-0.5); LYMPH# 0.49 X1000 (1.2-3.4); LYMPH% 3.6 % (20.5-51.1); MCH 32.1 PG (27-31); MCHC 34.5 g/dL (33-37); MONO# 1.12 X1000 (0.11-0.59); MONO% 8.2 % (1.7-9.3); NEUT# 11.26 X1000 (1.4-6.5); NEUT% 82.5 % (42.2-75.2); PLT 75 X1000 (130-400); RBC 3.43 XMIL (4.7-6.1); WBC 13.65 X1000 (4.8-10.8)
[2018-10-13 07:07] LABS: AGAP 12; ALB/GLOB RATIO 0.7; ALBUMIN 2.4 g/dL (3.5-5.0); ALKALINE PHOSPHATASE 269 U/L (32-122); BUN 24 mg/dL (8-22); CALCIUM 7.8 mg/dL (8.8-10.2); CHLORIDE 91 mmol/L (98-107); COSMO 288; CREATININE 0.9 mg/dL (0.7-1.2); ESTIMATED GFR > 60; GLUCOSE 118 mg/dL (70-104); GOT 54 U/L (10-34); GPT 17 U/L (10-44); MAGNESIUM 1.6 mg/dL (1.5-2.7); PHOSPHORUS 2.8 mg/dL (2.7-4.5); POTASSIUM 2.8 mmol/L (3.5-5.1); SODIUM 142 mmol/L (136-145); TCO2 39 mmol/L (25-35); TOTAL PROTEIN 5.7 g/dL (6.3-8.3)
--- NOTE | 2018-10-13 07:36 | Diag Imaging Result Doc PS360 ---
EXAM: CHEST-1 VIEW INDICATION: SOB TECHNIQUE: One view COMPARISON: 10/12/2018 FINDINGS: Support tubes and lines are in stable positions. Extensive bilateral infiltrates are essentially stable given slight differences in positioning. There is a stable right pleural effusion. No new consolidations are identified. Cardiac silhouette is stable. IMPRESSION: Essentially stable chest. Electronically signed by Phill Burroughs 10/13/2018 7:34 AM
--- NOTE | 2018-10-13 07:48 | PROGRESS NOTE ---
DATE: 10/13/2018 SUBJECTIVE: The patient is still on mechanical ventilation and sedated. No acute events overnight. He is not on pressors. He is on a diltiazem drip and an Ativan drip. We have a positive blood culture and a sputum culture that showed streptococcal pneumonia. This patient is getting antibiotics per infectious disease department. We will continue with the same management. OBJECTIVE: Vital Signs: Temperature 99.6 degrees, pulse 90, respiratory rate 20, blood pressure 107/62, oxygen saturation 97% on mechanical ventilation. HEENT: Head normocephalic. No trauma. PERRLA. Neck: Supple. No JVD. No masses. Central trachea. Chest: Coarse breath sounds bilaterally with rhonchi and some crackles at the bases bilaterally. Abdomen: Soft, nontender, nondistended. No hepatosplenomegaly. Extremities: No edema, no clubbing, no cyanosis. Neurological Examination: The patient is on mechanical ventilation and sedated. Laboratory: WBC 13.6, hemoglobin 11, hematocrit 31.9, platelets 75,000. Sodium 142, potassium 2.8, chloride 91, bicarbonate 39, BUN 24, creatinine 0.9, glucose 118, calcium 7.8, albumin 2.4. ASSESSMENT AND PLAN: 1. Acute hypoxemic and hypercapnic respiratory failure secondary to pneumonia/pleural effusion. This patient is also status post cardiac arrest and placed on mechanical ventilation. Pulmonary department and cardiology department on board. We will continue with the same management. 2. Status post cardiac arrest. It looks like he does not have any significant past medical history other than bronchitis and probably alcohol abuse. We will continue with the same treatment. Cardiology on board. 3. Atrial fibrillation with rapid ventricular response, rate controlled. Continue with Cardizem drip. 4. Bilateral pneumonia. This patient had an episode of fever yesterday on two opportunities. No reported fever after midnight. WBC trending down. We will continue with antibiotics. Infectious disease on board. 5. Fever, as above. 6. Bilateral pneumonia, more prominent on the left side. Continue with antibiotics. Culture showed streptococcal pneumonia. 7. Bacteremia secondary to streptococcal pneumonia. Aware. Continue with antibiotics per infectious disease department. 8. Septic shock. He is no longer on vasopressors, status post cardiac arrest. Echocardiogram showed an ejection fraction of 65% but there is some atypical contractility on the left ventricle due to prominence of the right ventricle. There is also pulmonary hypertension. 9. Hyponatremia, resolved. 10. Hypokalemia. I will replace the potassium. 11. Initially admitted also due to hemoptysis. Continue with the same management. 12. Thrombocytopenia. No signs of bleeding, unclear etiology. Decreased a little bit compared with yesterday. I think we are going to monitor for now. 13. Probably chronic alcohol abuse with withdrawal symptoms. He is on an Ativan drip at this moment. He is still on mechanical ventilation. Folic acid and thiamine on board. 14. His prognosis is guarded. He is status post cardiac arrest. Cardiology department, pulmonary department, and infectious disease department on board. He is tolerating his tube feeding. I will replace the potassium. We will monitor this patient closely. He is still on mechanical ventilation. CRITICAL CARE TIME: 40 minutes. cc: Maximiliano Braxton MD
[2018-10-13 07:58] LABS: LYMPHS 2 % (21-51); MONO 2 % (1-9); SEGS 96 % (42-75)
[2018-10-13] MEDS: POTASSIUM CHLORIDE 40 MEQ/SWI 40 MEQ/100 ML IVPB IV SCH ×2 (08:15→19:43)
[2018-10-13] MEDS: VITAMIN B-1 PO SCH (08:23)
[2018-10-13] MEDS: NON-FORMULARY BULK MED NG SCH (08:24)
[2018-10-13] MEDS: ROCEPHIN 2 GM in NS 50 ML IV SCH ×2 (08:24→20:52)
--- NOTE | 2018-10-13 09:25 | INFECTIOUS DISEASE PROGRESS NO ---
DATE: 10/13/2018 PRESENT ILLNESS: The patient has pneumococcal pneumonia with an associated bacteremia. He also has an immunoglobulin deficiency with his IgG level at 320. MEDICATIONS: The patient's current treatment consists of Rocephin 2 g IV every 12 hours and, as mentioned above, the patient has received an infusion of IVIG. PHYSICAL EXAMINATION: Vital Signs: Temperature earlier was 102 and now it is 100, pulse 90, respirations 24, blood pressure 107/62. General: This is an ill-appearing, intubated, middle- aged male. He is sedated as well. He looks chronically ill. Head, Eyes, Ears, Nose, and Throat: No drainage was noted from the nose or ears. The patient has an orotracheal and nasogastric tube in place. Neck: No meningismus. Lungs: There was bilateral rhonchi. Cardiovascular: Heart rate is regular. Abdomen: Soft and distended. It did not seem tender. Neurologic: The patient is intubated and sedated. There is no tremor. LAB AND X-RAY: Chest x-ray continued to show bilateral infiltrates. CBC shows a white count of 13,650, hemoglobin 11, platelet count 75,000. Blood gases show a pH of 7.48, a pO2 of 66, and a pCO2 of 66. Creatinine is 0.9. GFR is greater than 60. Repeat blood cultures are pending. Chest x-ray shows bilateral infiltrate. ASSESSMENT AND PLAN: The patient has pneumococcal pneumonia with bacteremia. I plan to continue Rocephin at his current dose of 2 g intravenous every 12 hours. As regarding the patient's immunoglobulin deficiency, the patient has had an immunoglobulin infusion and, in anywhere from 6 to 8 weeks, I will be repeating his immunoglobulin levels. When the patient recovers well, he will drastically need to change his lifestyle which would involve no more smoking and no more alcohol use. For now, I am going to continue Rocephin intravenous at its current dose. COMORBIDITIES: Cigarette smoking, alcohol abuse, and an immunoglobulin deficiency. cc: Sergey Cruz MD
--- NOTE | 2018-10-13 15:38 | ED EKG INTERP ---
This chart was entered by Olivia Greer Scribe, acting as scribe for Kate Sutherland MD. EKG Interpretation - EKG Time of EKG reading by physician:: 19:50 EKG Read and Signed by:: Kate Sutherland EKG Interpretation (*Must complete 3 of following elements*): Abnormal (non specific t wave abnormality) Rate: 163 Rhythm: afib with RVR ST Wave: non-specific ST changes Attestation - Physician/ JUSTINA Attestation The physician spent face to face time with patient:: Yes Advanced Practice Provider documentation review:: Supervising physician onsite and consulted in the evaluation and care of this patient. The physician did have a face to face encounter with the patient. This chart was documented by the indicated scribe, (Olivia rGeer Scribe) and accurately reflects the services I performed and decisions made by me, Kate Sutherland MD, as attested by the provider's signature.
[2018-10-13] MEDS: FOLIC ACID 1 MG in NS 50 ML IV SCH (20:52)
[2018-10-13] MEDS: PROTONIX IV SCH (20:53)
[2018-10-13] MEDS: SODIUM CHLORIDE 0.9% INJ SCH (20:53)
[2018-10-14] MEDS: ATIVAN 20 MG in NS 190 ML IV SCH ×4 (02:51→20:17)
[2018-10-14] MEDS: D5 1/2 NS 1,000 ML IV SCH ×2 (03:18→14:32)
[2018-10-14] MEDS: DUONEB (A & A) INH SCH ×6 (04:10→23:41)
[2018-10-14 04:56] LABS: ALLEN TEST YES; BE 18.7 mmoll (-3.0-3.0); BLOOD TYPE ARTERIAL; HCO3-(ACT) 39.5 mmoll (20.0-26.0); METHB 0.8 % (0.0-1.5); PO2(98.6) 88 mmHg (60-100); SAMPLE BLOOD; SAO2 99.1 % (95.0-100.0); SRATE 20 BPM; TVOL 500 mL; pH(98.6) 7.54 (7.35-7.45)
[2018-10-14 04:57] LABS: MODALITY VENTILATOR
[2018-10-14 04:58] LABS: PCO2(98.6) 51 mmHg (35-45)
[2018-10-14 05:29] LABS: BASO# 0.06 X1000 (0.0-0.2); BASO% 0.5 % (0.0-0.8); EOS# 0.01 X1000 (0.0-0.7); EOS% 0.1 % (0.0-10.0); HEMATOCRIT 30.8 % (42.0-52.0); HEMOGLOBIN 10.6 g/dL (14.0-18.0); IMM GRAN# 0.68 X1000 (0.0-0.04); IMM GRAN% 5.8 % (0.0-0.5); LYMPH# 0.63 X1000 (1.2-3.4); LYMPH% 5.4 % (20.5-51.1); MCH 32.8 PG (27-31); MCHC 34.4 g/dL (33-37); MCV 95.4 FL (81-99); MONO# 0.97 X1000 (0.11-0.59); MONO% 8.3 % (1.7-9.3); MPV 10.1 FL (7.4-10.4); NEUT# 9.33 X1000 (1.4-6.5); NEUT% 79.9 % (42.2-75.2); PLT 90 X1000 (130-400); RBC 3.23 XMIL (4.7-6.1); RDW 14.7 % (11.5-14.5); WBC 11.68 X1000 (4.8-10.8)
[2018-10-14 05:32] LABS: ESTIMATED GFR > 60
[2018-10-14 05:36] LABS: AGAP 3; ALB/GLOB RATIO 0.6; ALBUMIN 2.1 g/dL (3.5-5.0); ALKALINE PHOSPHATASE 229 U/L (32-122); BUN 23 mg/dL (8-22); CALCIUM 7.9 mg/dL (8.8-10.2); CHLORIDE 98 mmol/L (98-107); COSMO 293; CREATININE 0.7 mg/dL (0.7-1.2); GLUCOSE 114 mg/dL (70-104); GOT 62 U/L (10-34); GPT 23 U/L (10-44); POTASSIUM 3.2 mmol/L (3.5-5.1); SODIUM 145 mmol/L (136-145); TCO2 44 mmol/L (25-35); TOTAL BILIRUBIN 0.24 mg/dL (0.20-1.00); TOTAL PROTEIN 5.7 g/dL (6.3-8.3)
[2018-10-14 06:30] LABS: LYMPHS 7 % (21-51); MONO 8 % (1-9); SEGS 85 % (42-75)
--- NOTE | 2018-10-14 07:12 | Diag Imaging Result Doc PS360 ---
EXAM: CHEST-1 VIEW 10/14/2018 HISTORY: SOB TECHNIQUE: AP portable at 0529 COMMENT: There is an endotracheal tube with its tip at thoracic inlet and an NG tube which passes below the diaphragm. There is a right subclavian central venous catheter with its tip in the superior vena cava. There is interstitial and alveolar opacity throughout both lungs particularly in the left lower lobe and right lower lobe. There may be bilateral pleural effusions. Compared to 10/13/2018, there has been no appreciable change. The opacification of the left lower lobe is worse than on 10/12/2018. IMPRESSION: Pulmonary edema plus minus pneumonia with bilateral pleural effusions. Electronically signed by Anthony Bustamante 10/14/2018 7:10 AM
[2018-10-14] MEDS: CARDIZEM 125 MG in NS 100 ML IV SCH ×2 (07:30→19:10)
[2018-10-14] MEDS: ROCEPHIN 2 GM in NS 50 ML IV SCH ×2 (08:38→21:11)
[2018-10-14] MEDS: VITAMIN B-1 PO SCH (08:38)
[2018-10-14] MEDS: NON-FORMULARY BULK MED NG SCH (08:39)
--- NOTE | 2018-10-14 09:34 | PROGRESS NOTE ---
DATE: 10/14/2018 SUBJECTIVE: This is a 57-year-old who presented to the hospital with increased cough, congestion, shortness of breath, increased work of breathing. 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 He presented on 10/08/2018, had fever and chills with a right lower lobe pneumonia. He had some hyponatremia, hypokalemia, hypomagnesemia, leukopenia, hemoptysis. He has a history of chronic alcohol abuse, likely withdrawal symptoms on presentation, and supraventricular tachycardia. Dr. Hernandez, ballet dancer, and Dr. Cruz, Infectious Disease is following developed bilateral lower lobe consolidations. Gram-positive cocci grew 2/2 blood cultures. Sputum showed gram-positive cocci, gram-negative rods and gram-positive rods. He had a cardiac arrest and suspect that electrolyte abnormalities were related to his beer potomania on the ventilator at the present time. EXAM: Vital Signs: Spiked a temperature of 102.5 degrees, pulse 108, respirations 20, blood pressure 117/68. Eyes: Pupils are equal and round. General: He is sedated on the ventilator. Lungs: Clear anterolateral. Cardiovascular: Regular rhythm and rate without murmur or S3. Abdomen: Soft. Skin: Warm and dry. : Urine output is 2600 mL. ASSESSMENT AND PLAN: 1. Bilateral pneumonia, predominantly right lower lobe pneumonia. Continue current antibiotics. He is on ceftriaxone 2 grams intravenous every 12 hours. 2. Significant electrolyte imbalance with hyponatremia, hypokalemia, hypomagnesium, which we are supplementing. 3. Strong possibility of alcohol withdrawal. 4. Echocardiogram done reveals preserved left ventricular function. The patient is on Cardizem for supraventricular tachycardia and was getting some Jamari-Synephrine for blood pressure, so suspect pneumonia with sepsis. He is getting thiamine 100 mg daily, ceftriaxone 2 g IV q. 12 hours, Protonix 40 mg IV q. 24 hours, folic acid 1 mg 24 hours, Cardizem drip. He is getting D 5 one-half normal saline and running at 75 mL an hour, and getting albuterol ipratropium breathing treatments as well. cc: Corbin Goodrich MD
[2018-10-14] MEDS: NS 500 ML IV SCH (09:44)
[2018-10-14] MEDS ORDERED: CALMOSEPTINE OINTMENT TOP PRN (10:06)
[2018-10-14] MEDS: TYLENOL NG PRN (12:18)
--- NOTE | 2018-10-14 14:52 | INFECTIOUS DISEASE PROGRESS NO ---
DATE: 10/14/2018 PRESENT ILLNESS: The patient has pneumococcal pneumonia with an associated bacteremia. He also has an immunoglobulin deficiency with an IgG of 320. He has been having some fever spikes. His nurse has informed me that she is getting copious amounts of blood-tinged sputum when she suctions the patient. Also, it is noted some of the patient's liver function studies are elevated. MEDICATIONS: 1. The patient is receiving Rocephin 2 g IV every 12 hours. 2. He has already received an infusion of IVIG to correct the low IgG level. PHYSICAL EXAMINATION: Vital Signs: Temperature maximum was 102.2 and now it is 100. Respirations 22, blood pressure 114/73. General: This is an ill-appearing, intubated, middle- aged male. He is sedated also. Head, Eyes, Ears, Nose, and Throat: The patient does not have any drainage from his nose or ears. He has a nasogastric tube and an orotracheal tube in place. Neck: No resistance to movement. Lungs: Clear to auscultation. Cardiovascular: Heart rate is regular. Abdomen: Soft and nontender. Extremities: Edema of the legs with no erythema. Neurologic: Patient is obtunded. He does not respond to verbal stimuli. LABORATORY AND IMAGING: Chest x-ray shows pulmonary edema/pneumonia with bilateral pleural effusions. CBC shows a white count of 11,680, hemoglobin 10.6, and platelet count 90,000. Blood gases show a pH of 7.54, PO2 of 88, and a pCO2 of 51. Creatinine is 0.7. GFR is greater than 60. AST is 62 and alkaline phosphatase is 229. ASSESSMENT AND PLAN: The patient has pneumococcal pneumonia with bacteremia. He may have developed a superimposed pulmonary infection. The patient has an immunoglobulin deficiency for which he has received intravenous immunoglobulin which should make the IgG level normal at this time. I am going to get a repeat sputum culture to see if there is a new pathogen involved. COMORBIDITIES: Cigarette smoking, alcohol abuse, and immunoglobulin deficiency. cc: Sergey Cruz MD
[2018-10-14] MEDS: FOLIC ACID 1 MG in NS 50 ML IV SCH (21:10)
[2018-10-14] MEDS: SODIUM CHLORIDE 0.9% INJ SCH (21:11)
[2018-10-14] MEDS: PROTONIX IV SCH (21:11)
[2018-10-15] MEDS: DUONEB (A & A) INH SCH ×5 (03:34→20:13)
[2018-10-15] MEDS: ATIVAN 20 MG in NS 190 ML IV SCH ×3 (03:50→17:31)
[2018-10-15] MEDS: D5 1/2 NS 1,000 ML IV SCH ×2 (03:52→17:31)
[2018-10-15 04:27] LABS: ALLEN TEST YES; BE 20.4 mmoll (-3.0-3.0); BLOOD TYPE ARTERIAL; HCO3-(ACT) 40.8 mmoll (20.0-26.0); METHB 2.4 % (0.0-1.5); O2(CT) 5.8 mL/dL (15.0-23.0); O2HB 92.2 % (95.0-99.0); PO2(98.6) 62 mmHg (60-100); SAMPLE BLOOD; SAO2 96.4 % (95.0-100.0); SRATE 20 BPM; THB 4.4 g/dL (11.5-17.4); TVOL 500 mL; pH(98.6) 7.52 (7.35-7.45)
[2018-10-15 04:30] LABS: MODALITY VENTILATOR; PCO2(98.6) 55 mmHg (35-45)
[2018-10-15 05:32] LABS: AGAP 9; ALB/GLOB RATIO 0.6; ALBUMIN 2.1 g/dL (3.5-5.0); ALKALINE PHOSPHATASE 208 U/L (32-122); BUN 25 mg/dL (8-22); CHLORIDE 103 mmol/L (98-107); COSMO 299; CREATININE 0.6 mg/dL (0.7-1.2); ESTIMATED GFR > 60; GLUCOSE 112 mg/dL (70-104); GOT 79 U/L (10-34); GPT 34 U/L (10-44); POTASSIUM 3.1 mmol/L (3.5-5.1); SODIUM 148 mmol/L (136-145); TCO2 36 mmol/L (25-35); TOTAL BILIRUBIN 0.33 mg/dL (0.20-1.00); TOTAL PROTEIN 5.5 g/dL (6.3-8.3)
[2018-10-15] MEDS: CARDIZEM 125 MG in NS 100 ML IV SCH (07:05)
--- NOTE | 2018-10-15 07:23 | Diag Imaging Result Doc PS360 ---
EXAM: CHEST-1 VIEW HISTORY: SOB TECHNIQUE: Portable chest single view COMPARISON: 10/14/2018 FINDINGS: No change in the endotracheal tube, the nasogastric tube, or in the right subclavian line. No pneumothorax. There are dense infiltrates bilaterally similar to the prior study. There is a small to moderate-sized right-sided pleural effusion with a smaller left pleural effusion. There is atelectasis in the right lung base. No cardiomegaly. IMPRESSION: No interval improvement. Electronically signed by Gareth Garcia 10/15/2018 7:20 AM
[2018-10-15] MEDS ORDERED: LASIX IV ONE (07:25)
[2018-10-15] MEDS: NS 500 ML IV SCH (08:18)
[2018-10-15] MEDS: VITAMIN B-1 PO SCH (08:19)
[2018-10-15] MEDS: ROCEPHIN 2 GM in NS 50 ML IV SCH ×2 (08:19→21:49)
[2018-10-15] MEDS: NON-FORMULARY BULK MED NG SCH (08:19)
[2018-10-15] MEDS: LEVAQUIN 750 MG/D5W 750 MG/150 ML IVPB IV SCH (09:17)
[2018-10-15] MEDS ORDERED: POTASSIUM CHLORIDE 20% LIQUID PO ONE ×2 (09:22→21:20)
--- NOTE | 2018-10-15 09:33 | INFECTIOUS DISEASE PROGRESS NO ---
DATE: 10/15/2018 PRESENT ILLNESS: The patient has a pneumococcal pneumonia with an associated bacteremia. He also has an immunoglobulin deficiency with an IgG of 320. Unfortunately he continues to have fever spikes, and his chest x-ray continues to show bilateral infiltrates without improvement. MEDICATIONS: As mentioned above, the patient is on Rocephin. The dose is 2 g IV every 12 hours. Day 1 of treatment will be the first day that the patient's repeat blood cultures are sterile. The patient has received an infusion of IVIG which should bring the IgG level into the normal range. PHYSICAL EXAMINATION: Vital Signs: Temperature is 100.1 degrees, pulse 84, respirations 20, blood pressure 137/70. General: This is a ill-appearing, intubated, middle-aged male. Today he is actually a little more awake; he opened his eyes, but he did not follow request to move his arms. Head/eyes/ears/nose/throat: He has an orotracheal and nasogastric tube in place. There is no drainage from the ears. Neck: There was no resistance to passive movement. Lungs: Clear to auscultation. Cardiovascular: Heart rate is regular. Abdomen: Soft and nontender. Extremities: The patient has edema of the legs without erythema. IV site is not erythematous or swollen. LAB AND RADIOLOGY: Blood gases show a pH of 7.52, a PO2 of 62, and a pCO2 of 55. Creatinine is 0.6 with a GFR greater than 60. Alkaline phosphatase is 208. Chest x-ray shows bilateral infiltrates, which have not improved. ASSESSMENT AND PLAN: The patient has pneumococcal pneumonia with bacteremia. I am going to go ahead and add Levaquin and continue with Rocephin. Also, I am going to get immunoglobulin levels to make sure that the IgG level is in the normal range. A repeat sputum has been ordered and the results are pending. I ordered the repeat sputum in case the patient has developed superimposed new infection. I have ordered Levaquin to be added to Rocephin because Levaquin acts in a different manner than Rocephin does, and maybe with the antibiotics acting in two different ways, it might be enough to improve the patient's pneumonia. COMORBIDITIES: Include cigarette smoking, alcohol abuse, and immunoglobulin deficiency. cc: Sergey Cruz MD
--- NOTE | 2018-10-15 10:20 | PROGRESS NOTE ---
DATE: 10/15/2018 SUBJECTIVE: Mr. Almanza is still on the ventilator. We have turned down the sedation a little bit, but he is about the same. OBJECTIVE: Vitals: Temperature maximum is 100.1 degrees, pulse 84, respirations 20, blood pressure 137/70. Eyes: Pupils are equal and round. Lungs: Are clear in all lung butterfield. Cardiovascular: Regular rhythm and rate without murmur or S3. Abdomen: Soft. Skin: Warm and dry. URINE OUTPUT: 3400 mL. ASSESSMENT AND PLAN: 1. Pneumococcal pneumonia with associated bacteremia. 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 Continues to have fever spikes. Bilateral infiltrates without improvement, so continue Rocephin at [address] Cruz following. The patient received an infusion of intravenous immunoglobulin, which will help. 2. Suspect alcohol withdrawal. 3. Continue to watch electrolytes and renal function. 4. Echocardiogram reveals preserved left ventricular function. He was on Cardizem for supraventricular tachycardia and sinus tachycardia and that is better. cc: Corbin Goodrich MD MTDD
--- NOTE | 2018-10-15 10:39 | Diag Imaging Result Doc PS360 ---
CT THORAX W/O CONTRAST - 10/15/2018 INDICATION: SOB COMPARISON: Chest x-ray earlier 10/15/2018 FINDINGS: There is an endotracheal tube and nasogastric tube in good position. There is a right subclavian central line in good position. Heart size is normal with no pericardial effusion. No significant adenopathy. There is severe consolidation of the entire right lower lobe with air bronchograms. No volume loss. There are trace bilateral pleural effusions. There is dense infiltrate and some consolidation of the right upper lobe and left lower lobe. There is significant interstitial infiltrate bilaterally with curly B lines suggesting an element of pulmonary edema. Upper abdominal organs are unremarkable. Bony structures are intact. IMPRESSION: 1. Interstitial pulmonary edema. Trace bilateral pleural effusions. 2. Dense consolidation of the entire right lower lobe with air bronchograms. Significant infiltrates and consolidation in the right upper lobe and left lower lobe. This exam was performed using automated exposure control, adjustment of mA or kV according to patient size, and/or use of iterative reconstruction technique Electronically signed by Mateo Campos 10/15/2018 10:37 AM
[2018-10-15] MEDS: TYLENOL NG PRN (11:46)
[2018-10-15] MEDS: CARDIZEM NG SCH ×2 (14:51→21:49)
[2018-10-15] MEDS: PROTONIX IV SCH (21:49)
[2018-10-15] MEDS: SODIUM CHLORIDE 0.9% INJ SCH (21:49)
[2018-10-15] MEDS: FOLIC ACID 1 MG in NS 50 ML IV SCH (21:49)
[2018-10-16] MEDS: DUONEB (A & A) INH SCH ×7 (00:06→23:40)
[2018-10-16] MEDS: ATIVAN 20 MG in NS 190 ML IV SCH ×5 (01:50→21:20)
[2018-10-16] MEDS: CARDIZEM NG SCH ×4 (01:55→20:17)
[2018-10-16 05:03] LABS: ALLEN TEST YES; BE 15.1 mmoll (-3.0-3.0); BLOOD TYPE ARTERIAL; HCO3-(ACT) 36.7 mmoll (20.0-26.0); METHB 0.5 % (0.0-1.5); O2(CT) 12.9 mL/dL (15.0-23.0); O2HB 93.7 % (95.0-99.0); PO2(98.6) 69 mmHg (60-100); SAMPLE BLOOD; SAO2 97.6 % (95.0-100.0); SRATE 20 BPM; THB 9.7 g/dL (11.5-17.4); TVOL 500 mL; pH(98.6) 7.47 (7.35-7.45)
[2018-10-16 05:05] LABS: MODALITY VENTILATOR; PCO2(98.6) 56 mmHg (35-45)
[2018-10-16 06:18] LABS: BASO# 0.03 X1000 (0.0-0.2); BASO% 0.2 % (0.0-0.8); EOS# 0.02 X1000 (0.0-0.7); EOS% 0.2 % (0.0-10.0); HEMATOCRIT 29.6 % (42.0-52.0); HEMOGLOBIN 9.7 g/dL (14.0-18.0); IMM GRAN# 0.29 X1000 (0.0-0.04); IMM GRAN% 2.4 % (0.0-0.5); LYMPH% 5.8 % (20.5-51.1); MCH 31.9 PG (27-31); MCHC 32.8 g/dL (33-37); MCV 97.4 FL (81-99); MONO# 0.51 X1000 (0.11-0.59); MONO% 4.2 % (1.7-9.3); MPV 10.2 FL (7.4-10.4); NEUT# 10.61 X1000 (1.4-6.5); NEUT% 87.2 % (42.2-75.2); PLT 191 X1000 (130-400); RBC 3.04 XMIL (4.7-6.1); WBC 12.16 X1000 (4.8-10.8)
[2018-10-16 06:42] LABS: AGAP 10; ALB/GLOB RATIO 0.6; ALKALINE PHOSPHATASE 177 U/L (32-122); BUN 23 mg/dL (8-22); CALCIUM 8.1 mg/dL (8.8-10.2); CHLORIDE 104 mmol/L (98-107); COSMO 299; CREATININE 0.7 mg/dL (0.7-1.2); ESTIMATED GFR > 60; GLUCOSE 118 mg/dL (70-104); GOT 60 U/L (10-34); GPT 36 U/L (10-44); PHOSPHORUS 3.3 mg/dL (2.7-4.5); POTASSIUM 3.4 mmol/L (3.5-5.1); SODIUM 148 mmol/L (136-145); TCO2 34 mmol/L (25-35); TOTAL BILIRUBIN 0.25 mg/dL (0.20-1.00); TOTAL PROTEIN 5.5 g/dL (6.3-8.3)
--- NOTE | 2018-10-16 07:28 | Diag Imaging Result Doc PS360 ---
CHEST-1 VIEW - 10/16/2018 INDICATION: SOB COMPARISON: 10/15/2018 FINDINGS: Support lines and tubes are stable. Heart size remains normal. Stable dense consolidation in both lung bases right greater than left. There may be pleural effusions as well. There is slight improvement in the background interstitial pulmonary edema. IMPRESSION: Improvement in the background interstitial pulmonary edema. Otherwise no change from prior. Electronically signed by Mateo Campos 10/16/2018 7:25 AM
--- NOTE | 2018-10-16 07:56 | INFECTIOUS DISEASE PROGRESS NO ---
DATE: 10/16/2018 PRESENT ILLNESS: The patient has a pneumococcal pneumonia with an associated bacteremia. He also has an immunoglobulin deficiency with IgG being only 320. The patient has been having fever spikes. In the 24 hours, it looks like the temperature is coming down. MEDICATIONS: The patient is receiving Rocephin 2 g IV every 12 hours and yesterday, I added Levaquin. The patient has already an infusion of IVIG to correct the low IgG level. PHYSICAL EXAMINATION: Vital Signs: Temperature is 98 degrees, pulse 96, respirations 21, blood pressure 127/73. General: This is an ill-appearing, middle-aged male. He has an orotracheal and nasogastric tube in place. Head, Eyes, Ears, Nose, and Throat: The patient has an orotracheal and nasogastric tube in place. Neck: There is no stiffness. Lungs: Clear to auscultation. Cardiovascular: Heart rate is regular. Abdomen: Soft and nontender. Thorax: The patient has a right subclavian vein catheter present on the right side. The site is not erythematous or purulent. Neurologic: The patient is sedated. He does not respond to verbal stimuli. There is no tremor. I did not see him move at all while I was observing the patient. LAB AND IMAGING: Chest x-ray shows bilateral infiltrates. The blood gases show a pH of 7.47, a PO2 of 69, and a pCO2 of 56. Creatinine is 0.7. GFR is greater than 60. AST is 60. IgG is 794, IgA is 520. ASSESSMENT AND PLAN: The patient has pneumococcal pneumonia with bacteremia. He may have developed a superimposed infection as well. For this, I have continued the patient on Rocephin for the patient's pneumonia and bacteremia. For the patient's immunoglobulin deficiency, he received a dose of IVIG. COMORBIDITIES: Cigarette smoking, alcohol abuse, and an immunoglobulin deficiency discovered during this hospitalization. cc: Sergey Cruz MD
[2018-10-16] MEDS ORDERED: POTASSIUM CHLORIDE 20% LIQUID PO ONE (08:00)
[2018-10-16] MEDS: ROCEPHIN 2 GM in NS 50 ML IV SCH ×2 (08:09→20:09)
[2018-10-16] MEDS: VITAMIN B-1 PO SCH (08:09)
[2018-10-16] MEDS: D5 1/2 NS 1,000 ML IV SCH ×2 (08:09→20:08)
[2018-10-16] MEDS: TYLENOL NG PRN ×2 (08:09→15:47)
[2018-10-16] MEDS: NON-FORMULARY BULK MED NG SCH (08:10)
[2018-10-16] MEDS: NS 500 ML IV SCH (08:32)
[2018-10-16] MEDS: LEVAQUIN 750 MG/D5W 750 MG/150 ML IVPB IV SCH (08:59)
--- NOTE | 2018-10-16 10:20 | PROGRESS NOTE ---
DATE: 10/16/2018 SUBJECTIVE: Mr. Almanza is still intubated on the ventilator. He is still on 60% FiO2. Temperature is 102 degrees. Still spiking temperatures. OBJECTIVE: Temperature degrees, respirations 22, blood pressure 115/66. Pupils are equal and round. Lungs are clear in all lung butterfield. Cardiovascular: Regular rhythm and rate without murmur or S3. Abdomen is soft. Skin is warm and dry. URINE OUTPUT: 4100 mL. DIAGNOSTIC STUDIES: Blood sugars 122, 111, 123 ASSESSMENT AND PLAN: 1. Pneumococcal pneumonia, associated bacteremia, immunoglobulin deficiency. His IgG was 320 so giving him Rocephin 2 g IV q.12 h., continue this. Continue ventilator support. Hopefully, can wean as able. 2. Suspect possibility of alcohol withdrawal. 3. His chest x-ray did show improvement background interstitial pulmonary edema. LABORATORY: White count 12,160, hematocrit 29, platelet count 191,000. Chemistries unremarkable. Sodium and potassium a little low. We will supplement. Magnesium 2.0. cc: Corbin Goodrich MD MTDD
[2018-10-16] MEDS: FOLIC ACID 1 MG in NS 50 ML IV SCH (20:09)
[2018-10-16] MEDS: PROTONIX IV SCH (20:09)
[2018-10-17] MEDS: TYLENOL NG PRN ×2 (00:42→14:36)
[2018-10-17] MEDS: ATIVAN 20 MG in NS 190 ML IV SCH ×6 (01:00→20:43)
[2018-10-17] MEDS: CARDIZEM NG SCH ×4 (02:21→20:22)
[2018-10-17] MEDS: DUONEB (A & A) INH SCH ×6 (03:35→23:22)
[2018-10-17 04:32] LABS: ALLEN TEST YES; BE 13.3 mmoll (-3.0-3.0); BLOOD TYPE ARTERIAL; HCO3-(ACT) 35.3 mmoll (20.0-26.0); METHB 0.3 % (0.0-1.5); O2(CT) 12.3 mL/dL (15.0-23.0); O2HB 97.3 % (95.0-99.0); PCO2(98.6) 41 mmHg (35-45); PO2(98.6) 176 mmHg (60-100); SAMPLE BLOOD; SAO2 100.8 % (95.0-100.0); SRATE 20 BPM; THB 8.7 g/dL (11.5-17.4); TVOL 500 mL
[2018-10-17 04:36] LABS: MODALITY VENTILATOR
[2018-10-17] MEDS: LOVENOX SUBQ SCH (05:48)
--- NOTE | 2018-10-17 07:27 | Diag Imaging Result Doc PS360 ---
CHEST-1 VIEW - 10/17/2018 INDICATION: SOB COMPARISON: 10/16/2018 FINDINGS: Support lines and tubes are stable. Stable dense bibasilar airspace opacification right greater than left. Heart size remains normal. IMPRESSION: No change from prior. Electronically signed by Mateo Campos 10/17/2018 7:24 AM
[2018-10-17] MEDS: ROCEPHIN 2 GM in NS 50 ML IV SCH ×3 (07:51→20:24)
[2018-10-17] MEDS: LEVAQUIN 750 MG/D5W 750 MG/150 ML IVPB IV SCH ×2 (07:51→09:31)
[2018-10-17] MEDS: VITAMIN B-1 PO SCH ×2 (07:51→09:41)
[2018-10-17] MEDS: NON-FORMULARY BULK MED NG SCH ×2 (07:52→09:41)
[2018-10-17] MEDS: NS 500 ML IV SCH (08:24)
[2018-10-17] MEDS: D5 1/2 NS 1,000 ML IV SCH ×3 (08:27→20:23)
[2018-10-17] MEDS: LIBRIUM PO SCH ×3 (08:31→20:23)
[2018-10-17 08:36] LABS: HEMATOCRIT 26.8 % (42.0-52.0); HEMOGLOBIN 8.7 g/dL (14.0-18.0); MCH 32.1 PG (27-31); MCHC 32.5 g/dL (33-37); MCV 98.9 FL (81-99); MPV 9.8 FL (7.4-10.4); RBC 2.71 XMIL (4.7-6.1); RDW 15.1 % (11.5-14.5); WBC 11.66 X1000 (4.8-10.8)
[2018-10-17 08:51] LABS: AGAP 5; ALB/GLOB RATIO 0.5; ALBUMIN 1.8 g/dL (3.5-5.0); ALKALINE PHOSPHATASE 171 U/L (32-122); BUN 23 mg/dL (8-22); CALCIUM 7.8 mg/dL (8.8-10.2); CHLORIDE 106 mmol/L (98-107); COSMO 298; CREATININE 0.6 mg/dL (0.7-1.2); ESTIMATED GFR > 60; GLUCOSE 135 mg/dL (70-104); GOT 48 U/L (10-34); GPT 33 U/L (10-44); POTASSIUM 3.4 mmol/L (3.5-5.1); SODIUM 147 mmol/L (136-145); TCO2 36 mmol/L (25-35); TOTAL BILIRUBIN 0.21 mg/dL (0.20-1.00); TOTAL PROTEIN 5.2 g/dL (6.3-8.3)
[2018-10-17] MEDS ORDERED: POTASSIUM CHLORIDE 20% LIQUID PO ONE (09:14)
[2018-10-17] MEDS ORDERED: LASIX IV ONE (09:37)
--- NOTE | 2018-10-17 10:12 | PROGRESS NOTE ---
DATE: 10/17/2018 SUBJECTIVE: Mr. Almanza is still on the ventilator. Nurse reported he has copious thick secretions. We will try and put him on some guaifenesin. Still vent dependent. OBJECTIVE: Remains low grade temperature of 100.3 degrees, pulse 97, respirations 20, and blood pressure 118/68. I do not appreciate distended neck veins. His lungs are clear anterolateral. Cardiovascular exam with regular rhythm and rate without murmur or S3. Abdomen is soft. Skin is warm and dry. LABORATORY AND DIAGNOSTIC: Urine output is 3100 mL. Chest x-ray shows no change from prior. Support lines and tubes stable. Stable dense bibasilar airspace opacification right greater than the left. Heart size remains normal. ASSESSMENT AND PLAN: 1. Pneumococcal pneumonia associated with bacteremia and immunoglobulin deficiency. His IgG was 320. We are giving him Rocephin 2 g IV q.12h. Continue ventilator support. Dr. Hernandez is following per Pulmonary. 2. Suspect possibility of alcohol withdrawal. We should be past that phase. 3. Chest x-ray did show some pulmonary venous hypertension suggesting pulmonary venous hypertension. Looking back to see if we have an echocardiogram from earlier this month. Left ventricular function was excellent. Ejection fraction 65%. Right ventricular enlarged, but preserved function. No significant valvular dysfunction. There was a mild degree of mitral regurgitation. LABORATORY DATA: Review of lab from today, white count 08800, hematocrit 26, and platelet count 272,000. Sodium 147, potassium 3.4, chloride 106, BUN 23, and creatinine 0.6. Blood sugars 119, 131 and 135. PLAN: Continue current orders. Current antibiotics. Continue try to wean off the ventilator. cc: Corbin Goodrich MD
--- NOTE | 2018-10-17 18:16 | INFECTIOUS DISEASE PROGRESS NO ---
DATE: 10/17/2018 PRESENT ILLNESS: The patient has pneumococcal pneumonia with an associated bacteremia. The patient's immunoglobulin deficiency has been corrected with IVIG. . MEDICATIONS: The patient has been on Rocephin on a high dose for 6 days and for Levaquin 1. Day the patient has had an infusion of IVIG as mentioned above. PHYSICAL EXAMINATION: Vital Signs: Temperature earlier was 102, now it is 96, pulse 106, respirations 21, blood pressure 112/63. General: This is an ill-appearing middle-aged male. He is more awake today. Head, Eyes, Ears, Nose and Throat: No drainage noted from the nose or ears. He still has his tubes in place. Neck: There is no stiffness. Lungs: Clear to auscultation. Cardiovascular: Heart rate is regular. Abdomen: Soft and nontender. Thorax: The patient has a right subclavian vein catheter present. The site is not erythematous or draining. The patient has an increased AP diameter of the chest, also. Neurologic: The patient is more alert. He followed request to move his extremities. There was no tremor. LAB AND RADIOLOGY: Chest x-ray shows bibasilar opacities. Creatinine is 0.6, GFR is greater than 60. Liver function studies are improved. Repeat immunoglobulin levels are normal. Blood gases show a pH of 7.56, a PO2 of 176 and a pCO2 of 41. CBC shows a white count of 11,660, hemoglobin 8.7, and platelet count 272,000. ASSESSMENT AND PLAN: The patient has pneumococcal pneumonia and bacteremia. He has an immunoglobulin deficiency which has been corrected for with IVIG. My plan is to continue Rocephin and Levaquin. COMORBIDITIES: He is a cigarette smoker. He abuses alcohol and he has an immunoglobulin deficiency. cc: Sergey Cruz MD
[2018-10-17] MEDS: FOLIC ACID 1 MG in NS 50 ML IV SCH (20:23)
[2018-10-17] MEDS: PROTONIX IV SCH (20:23)
[2018-10-18] MEDS: ATIVAN 20 MG in NS 190 ML IV SCH ×6 (00:34→20:41)
[2018-10-18] MEDS: D5 1/2 NS 1,000 ML IV SCH (02:20)
[2018-10-18] MEDS: CARDIZEM NG SCH ×4 (02:21→20:40)
[2018-10-18] MEDS: LIBRIUM PO SCH ×4 (02:21→20:40)
[2018-10-18] MEDS: DUONEB (A & A) INH SCH ×6 (03:32→22:48)
[2018-10-18] MEDS: TYLENOL NG PRN (04:11)
[2018-10-18 05:10] LABS: ALLEN TEST YES; BE 10.1 mmoll (-3.0-3.0); BLOOD TYPE ARTERIAL; HCO3-(ACT) 32.8 mmoll (20.0-26.0); O2(CT) 12.5 mL/dL (15.0-23.0); O2HB 96.1 % (95.0-99.0); PCO2(98.6) 48 mmHg (35-45); PO2(98.6) 107 mmHg (60-100); SAMPLE BLOOD; SAO2 99.2 % (95.0-100.0); SRATE 20 BPM; THB 9.1 g/dL (11.5-17.4); TVOL 500 mL; pH(98.6) 7.47 (7.35-7.45)
[2018-10-18 05:13] LABS: MODALITY VENTILATOR
[2018-10-18] MEDS: LOVENOX SUBQ SCH (05:22)
[2018-10-18 06:40] LABS: BASO# 0.06 X1000 (0.0-0.2); BASO% 0.4 % (0.0-0.8); EOS# 0.05 X1000 (0.0-0.7); EOS% 0.3 % (0.0-10.0); HEMATOCRIT 27.7 % (42.0-52.0); IMM GRAN# 0.17 X1000 (0.0-0.04); IMM GRAN% 1.1 % (0.0-0.5); LYMPH# 0.87 X1000 (1.2-3.4); LYMPH% 5.9 % (20.5-51.1); MCHC 32.5 g/dL (33-37); MCV 98.6 FL (81-99); MONO# 0.76 X1000 (0.11-0.59); MONO% 5.1 % (1.7-9.3); MPV 10.4 FL (7.4-10.4); NEUT# 12.94 X1000 (1.4-6.5); NEUT% 87.2 % (42.2-75.2); PLT 380 X1000 (130-400); RBC 2.81 XMIL (4.7-6.1); RDW 15.1 % (11.5-14.5); WBC 14.85 X1000 (4.8-10.8)
[2018-10-18 06:47] LABS: BANDS 4 % (0-1); LYMPHS 6 % (21-51); MONO 10 % (1-9); SEGS 78 % (42-75)
[2018-10-18 06:56] LABS: AGAP 9; ALB/GLOB RATIO 0.5; ALBUMIN 1.9 g/dL (3.5-5.0); ALKALINE PHOSPHATASE 201 U/L (32-122); BUN 22 mg/dL (8-22); CHLORIDE 109 mmol/L (98-107); COSMO 300; CREATININE 0.7 mg/dL (0.7-1.2); ESTIMATED GFR > 60; GLUCOSE 109 mg/dL (70-104); GOT 51 U/L (10-34); GPT 37 U/L (10-44); SODIUM 149 mmol/L (136-145); TCO2 31 mmol/L (25-35); TOTAL PROTEIN 5.7 g/dL (6.3-8.3)
--- NOTE | 2018-10-18 07:50 | Diag Imaging Result Doc PS360 ---
EXAM: CHEST-1 VIEW INDICATION: SOB TECHNIQUE: One view COMPARISON: 10/17/2018 FINDINGS: Support tubes and lines are in stable positions. Airspace consolidations at the mid and lower lung zones, much worse on the right, are grossly stable. No new consolidation is identified. Cardiac silhouette is stable. IMPRESSION: Stable chest. Electronically signed by Phill Burroughs 10/18/2018 7:48 AM
[2018-10-18] MEDS: ROCEPHIN 2 GM in NS 50 ML IV SCH ×2 (08:37→20:41)
[2018-10-18] MEDS: NON-FORMULARY BULK MED NG SCH (08:37)
[2018-10-18] MEDS: VITAMIN B-1 PO SCH (08:37)
[2018-10-18] MEDS: LEVAQUIN 750 MG/D5W 750 MG/150 ML IVPB IV SCH (08:37)
[2018-10-18] MEDS: LASIX IV SCH (08:40)
[2018-10-18] MEDS: NS 500 ML IV SCH (09:08)
--- NOTE | 2018-10-18 09:58 | PROGRESS NOTE ---
DATE: 10/18/2018 SUBJECTIVE: Mr. Almanza is still on the ventilator. He is less sedated, opening his eyes. Seems to be more comfortable. He has been able to cut down some on the FiO2. OBJECTIVE: Vital Signs: He had a temperature spike of 102 yesterday. Pulse 103, respirations 20, blood pressure 114/61. Eyes: Pupils are equal and round. Neck: No distended neck veins. Lungs: Clear anterolateral. Cardiovascular exam: Regular rhythm and rate without murmur or S3. Abdomen: Soft. Skin: Skin is warm and dry. LABS: White count 14,850, hematocrit 27, hemoglobin 9, platelet count 380,000. Sodium 149, potassium 4.0, chloride 109. BUN 22, creatinine 0.7. Blood sugars 131, 106, 115. Pre-albumin is 7.6 back on the twenty-fifth. Blood gas from yesterday reviewed. X-RAYS: I should also say his chest x-ray from this morning reveals stable chest. Support tubes and lines in stable position. Airspace consolidation at the mid and lower lung zones much worse on the right, but are grossly stable. No new consolidation identified. ASSESSMENT AND PLAN: 1. Pneumococcal pneumonia associated with bacteremia. Immunoglobulin deficiency. IgG was 320. Continue Rocephin 2 grams intravenous every 12 hours. Continue attempts at weaning per Dr. Hernandez. 2. Suspect possibility of alcohol withdrawal, which we should be through that phase. 3. Blood pressure appears appropriate. Review of his orders: Cardizem 60 mg per NG tube q. 6 hours. Gets Librium as needed. Folic acid 1 mg every 24 hours. I gave him a dose of Lasix yesterday 60 mg IV, Levaquin 750 mg IV q. 24 hours, Ativan 2 mg IV p.r.n. and ceftriaxone 2 g IV q. 12 hours. Protonix 40 mg q. 24 hours. His lab from this morning: White count still elevated at 14,850, hematocrit 27, platelet count 380,000. Sodium 149, potassium 4.0, chloride 109. BUN 22, creatinine 0.7. cc: Corbin Goodrich MD
[2018-10-18] MEDS: HALDOL IV PRN (15:41)
[2018-10-18] MEDS: FOLIC ACID 1 MG in NS 50 ML IV SCH (20:41)
[2018-10-18] MEDS: PROTONIX IV SCH (20:41)
[2018-10-19] MEDS: ATIVAN 20 MG in NS 190 ML IV SCH ×7 (00:10→23:03)
[2018-10-19] MEDS: LIBRIUM PO SCH ×4 (02:44→20:55)
[2018-10-19] MEDS: CARDIZEM NG SCH ×4 (02:44→20:55)
[2018-10-19] MEDS: DUONEB (A & A) INH SCH ×6 (03:11→23:01)
[2018-10-19 05:04] LABS: ALLEN TEST YES; BE 9.7 mmoll (-3.0-3.0); BLOOD TYPE ARTERIAL; HCO3-(ACT) 32.5 mmoll (20.0-26.0); PCO2(98.6) 45 mmHg (35-45); PO2(98.6) 131 mmHg (60-100); SAMPLE BLOOD; SRATE 20 BPM; TVOL 500 mL; pH(98.6) 7.49 (7.35-7.45)
[2018-10-19 05:05] LABS: MODALITY VENTILATOR
[2018-10-19] MEDS: LOVENOX SUBQ SCH (05:31)
[2018-10-19 06:37] LABS: BASO# 0.05 X1000 (0.0-0.2); BASO% 0.3 % (0.0-0.8); EOS% 0.7 % (0.0-10.0); HEMATOCRIT 26.2 % (42.0-52.0); HEMOGLOBIN 8.3 g/dL (14.0-18.0); IMM GRAN% 0.7 % (0.0-0.5); LYMPH# 0.81 X1000 (1.2-3.4); LYMPH% 5.6 % (20.5-51.1); MCH 31.6 PG (27-31); MCHC 31.7 g/dL (33-37); MCV 99.6 FL (81-99); MONO# 0.74 X1000 (0.11-0.59); MONO% 5.1 % (1.7-9.3); MPV 10.6 FL (7.4-10.4); NEUT# 12.64 X1000 (1.4-6.5); NEUT% 87.6 % (42.2-75.2); PLT 410 X1000 (130-400); RBC 2.63 XMIL (4.7-6.1); RDW 15.3 % (11.5-14.5); WBC 14.44 X1000 (4.8-10.8)
[2018-10-19 06:50] LABS: AGAP 7; ALB/GLOB RATIO 0.6; ALKALINE PHOSPHATASE 173 U/L (32-122); BUN 26 mg/dL (8-22); CHLORIDE 111 mmol/L (98-107); COSMO 306; CREATININE 0.7 mg/dL (0.7-1.2); ESTIMATED GFR > 60; GLUCOSE 115 mg/dL (70-104); GOT 36 U/L (10-34); GPT 29 U/L (10-44); POTASSIUM 3.7 mmol/L (3.5-5.1); SODIUM 151 mmol/L (136-145); TCO2 33 mmol/L (25-35); TOTAL BILIRUBIN 0.22 mg/dL (0.20-1.00); TOTAL PROTEIN 5.6 g/dL (6.3-8.3)
[2018-10-19 06:56] LABS: LYMPHS 4 % (21-51); SEGS 96 % (42-75)
--- NOTE | 2018-10-19 07:18 | Diag Imaging Result Doc PS360 ---
EXAM: CHEST-1 VIEW HISTORY: SOB TECHNIQUE: Chest single view COMPARISON: 10/18/2018 FINDINGS: No change in the endotracheal tube, the nasogastric tube, or in the right subclavian line. There are bilateral infiltrates. These are most dense in the right lung base. Overall the findings are slightly less prominent. No cardiomegaly. There is a small right pleural effusion. IMPRESSION: Mild interval improvement. Electronically signed by Gareth Garcia 10/19/2018 7:15 AM
--- NOTE | 2018-10-19 07:55 | PROGRESS NOTE ---
DATE: 10/19/2018 SUBJECTIVE: He is still on ventilator. Did open his eyes. He appears comfortable with partial sedation. OBJECTIVE: Vital Signs: Temperature 98.2 degrees, pulse 100, respirations 27, blood pressure 120/66. HEENT: Pupils are equal and round. Lungs: Clear anterolateral. Cardiovascular: Regular rhythm and rate without murmur or S3. Abdomen: Soft. Skin: Warm and dry. LABORATORY AND IMAGING STUDIES: Urine output is 5000 mL. Chest x-ray: Mild interval improvement. No change in endotracheal tube. Nasogastric tube in the right subclavian line. Bilateral infiltrates, more dense in the right lung base. Overall findings slightly less prominent so improvement. Hematocrit stable at 26, hemoglobin 8.3, white count is 14,440, platelet count 410,000. Sodium 151, potassium 3.7, chloride 111, BUN 26, creatinine 0.7. Blood sugars 117, 125, 115, 130. ASSESSMENT AND PLAN: 1. Pneumococcal pneumonia associated with bacteremia, immunoglobulin deficiency. IgG was 320. Continue Rocephin 2 g IV q.12 h. Continue attempts at weaning off the ventilator. Continue pulmonary toilet. 2. Suspect possibility of alcohol withdrawal, which we should have passed that point. 3. Blood pressures appear appropriate. REVIEW OF ORDERS: I do not see any change. cc: Corbin Goodrich MD
[2018-10-19] MEDS: LASIX IV SCH (08:55)
[2018-10-19] MEDS: VITAMIN B-1 PO SCH (08:55)
[2018-10-19] MEDS: ROCEPHIN 2 GM in NS 50 ML IV SCH ×2 (08:56→20:55)
[2018-10-19] MEDS: NON-FORMULARY BULK MED NG SCH (08:56)
[2018-10-19] MEDS: LEVAQUIN 750 MG/D5W 750 MG/150 ML IVPB IV SCH (08:56)
[2018-10-19] MEDS: NS 500 ML IV SCH (09:07)
--- NOTE | 2018-10-19 09:45 | INFECTIOUS DISEASE PROGRESS NO ---
DATE: 10/19/2018 PRESENT ILLNESS: The patient has pneumococcal pneumonia with an associated bacteremia. The patient also has an immunoglobulin deficiency. MEDICATIONS: The patient is on a high dose of Rocephin. This is day 6 of treatment with Rocephin, with day 1 being the first day that the patient's blood cultures were sterile. The patient has been on Levaquin now for 4 days. PHYSICAL EXAMINATION: Vital Signs: Temperature is 98, pulse 104, respirations 20, blood pressure 120/66. General: This is an ill-appearing, middle-aged male. He is less awake than he was 2 days ago. When I called his name, he barely opened his eyes, and he did not move his extremities to request, which he did 2 days ago. HEENT: No drainage noted from the nose or ears. Neck: No resistance to movement of the neck. Lungs: Clear to auscultation. Cardiovascular: Heart rate was rapid. For most of the time, it appeared regular, but there were other times when there were a few runs with an irregular heart rate despite the fact that P waves were still seen. Abdomen: Soft and not tender. Thorax: The patient has a right-sided subclavian catheter in place. The site is not erythematous or draining. Neurologic: As mentioned above, the patient is less awake than he was 2 days ago. As mentioned above, he did not move his arms to request, which he did 2 days ago, and also his eyes were not open as much as they were 2 days ago. Integument: No rash noted. IMAGING AND LABORATORY DATA: CBC shows a white count of 14,440, hemoglobin 8.3, and platelet count 410,000. Blood gases show a pH of 7.49, a PO2 of 131, and a pCO2 of 45. Creatinine is 0.7. GFR is greater than 60. Alkaline phosphatase is 173. Chest x-ray shows improvement in the patient's infiltrates. ASSESSMENT AND PLAN: The patient has pneumococcal pneumonia with bacteremia. He also has an immunoglobulin deficiency. I plan to continue Rocephin and Levaquin, and the patient already has received intravenous immunoglobulin for his immunoglobulin deficiency. COMORBIDITIES: Cigarette smoking, alcohol abuse, and immunoglobulin deficiency. cc: Sergey Cruz MD
[2018-10-19] MEDS: HALDOL IV PRN (11:32)
[2018-10-19] MEDS: LOPRESSOR PO SCH ×2 (13:18→20:55)
[2018-10-19] MEDS: FOLIC ACID 1 MG in NS 50 ML IV SCH (20:56)
[2018-10-19] MEDS: PROTONIX IV SCH (20:56)
[2018-10-20] MEDS: CARDIZEM NG SCH ×4 (02:12→19:21)
[2018-10-20] MEDS: LIBRIUM PO SCH ×4 (02:12→20:55)
[2018-10-20] MEDS: DUONEB (A & A) INH SCH ×6 (03:05→23:30)
[2018-10-20] MEDS: ATIVAN 20 MG in NS 190 ML IV SCH ×6 (03:15→21:19)
[2018-10-20 04:54] LABS: ALLEN TEST YES; BE 9.8 mmoll (-3.0-3.0); BLOOD TYPE ARTERIAL; HCO3-(ACT) 32.5 mmoll (20.0-26.0); METHB 1.3 % (0.0-1.5); O2(CT) 13.8 mL/dL (15.0-23.0); O2HB 92.4 % (95.0-99.0); PO2(98.6) 71 mmHg (60-100); SAMPLE BLOOD; SAO2 96.3 % (95.0-100.0); SRATE 20 BPM; THB 10.6 g/dL (11.5-17.4); TVOL 500 mL; pH(98.6) 7.41 (7.35-7.45)
[2018-10-20 04:55] LABS: PCO2(98.6) 57 mmHg (35-45)
[2018-10-20 04:56] LABS: MODALITY VENTILATOR
[2018-10-20] MEDS: LOVENOX SUBQ SCH (05:46)
--- NOTE | 2018-10-20 06:39 | Diag Imaging Result Doc PS360 ---
EXAM: CHEST-1 VIEW HISTORY: SOB TECHNIQUE: Portable chest single view COMPARISON: 10/19/2018 FINDINGS: The lungs are well expanded. There are infiltrates in the mid and lower right lung and in the left base. Findings in the right lung are slightly more prominent than they were. No cardiomegaly. Small right pleural effusion. No change in the endotracheal tube, nasogastric tube, or right subclavian line. IMPRESSION: Worsening right lung infiltrates. Electronically signed by Gareth Garcia 10/20/2018 6:37 AM
--- NOTE | 2018-10-20 06:59 | INFECTIOUS DISEASE PROGRESS NO ---
DATE: 10/20/2018 PRESENT ILLNESS: The patient has a pneumococcal pneumonia with an associated bacteremia. The patient also has an immunoglobulin deficiency. MEDICATIONS: This is the 7th day of treatment with Rocephin in a high dose. Day 1 of treatment is the first day that the patient's repeat blood cultures are sterile. The patient has had IVIG to replenish his immunoglobulin deficiency. The patient also has been receiving Levaquin. This is the 5th day of treatment with Levaquin. PHYSICAL EXAMINATION: Vital Signs: Temperature is 99 degrees, pulse 117, respirations 23, blood pressure 106/66. General: This is an ill-appearing, middle-aged male. He is in no acute distress. Head, Eyes, Ears, Nose, and Throat: Orotracheal tube is in place. There is no drainage from the nose or ears. Neck: There does not seem to be any pain when the patient's neck is moved. Lungs: Bilateral rhonchi. Cardiovascular: Heart rate is regular and rapid. Abdomen: Soft and nontender. Thorax: The patient's subclavian catheter is in place. The site is not erythematous or purulent. Neurologic: The patient's eyes are open. He does not respond to verbal stimuli and did not move his extremities to request or close his eyes to request. Integument: No rash noted. LAB AND X-RAY: The patient had a chest x-ray today. The radiologist has not read it. When I looked at it, I think it has a right lower lobe infiltrate similar to the one seen on x-ray yesterday. The patient does not have a CBC or BMP for today. Blood gases show a pH of 7.41, a PO2 of 71, a pCO2 of 57. ASSESSMENT AND PLAN: The patient has pneumococcal pneumonia with bacteremia. He also has an immunoglobulin deficiency. Rocephin and Levaquin are treating the patient's pneumonia and bacteremia, and the patient has had an infusion of IVIG to treat his immunoglobulin deficiency. COMORBIDITIES: Cigarette smoking, alcohol abuse, and immunoglobulin deficiency. cc: Sergey Cruz MD
[2018-10-20 07:16] LABS: BASO# 0.04 X1000 (0.0-0.2); BASO% 0.3 % (0.0-0.8); EOS# 0.14 X1000 (0.0-0.7); HEMATOCRIT 26.3 % (42.0-52.0); HEMOGLOBIN 8.4 g/dL (14.0-18.0); IMM GRAN# 0.09 X1000 (0.0-0.04); IMM GRAN% 0.6 % (0.0-0.5); LYMPH# 0.89 X1000 (1.2-3.4); LYMPH% 6.3 % (20.5-51.1); MCH 32.1 PG (27-31); MCHC 31.9 g/dL (33-37); MCV 100.4 FL (81-99); MONO# 0.86 X1000 (0.11-0.59); MONO% 6.1 % (1.7-9.3); MPV 10.3 FL (7.4-10.4); NEUT# 12.03 X1000 (1.4-6.5); NEUT% 85.7 % (42.2-75.2); PLT 505 X1000 (130-400); RBC 2.62 XMIL (4.7-6.1); RDW 15.1 % (11.5-14.5); WBC 14.05 X1000 (4.8-10.8)
[2018-10-20 07:26] LABS: AGAP 10; ALB/GLOB RATIO 0.5; ALBUMIN 1.9 g/dL (3.5-5.0); ALKALINE PHOSPHATASE 168 U/L (32-122); BUN 25 mg/dL (8-22); CALCIUM 8.2 mg/dL (8.8-10.2); CHLORIDE 112 mmol/L (98-107); COSMO 309; CREATININE 0.6 mg/dL (0.7-1.2); ESTIMATED GFR > 60; GLUCOSE 114 mg/dL (70-104); GOT 34 U/L (10-34); GPT 27 U/L (10-44); POTASSIUM 3.7 mmol/L (3.5-5.1); SODIUM 153 mmol/L (136-145); TCO2 31 mmol/L (25-35); TOTAL BILIRUBIN 0.22 mg/dL (0.20-1.00); TOTAL PROTEIN 5.6 g/dL (6.3-8.3)
[2018-10-20] MEDS: LOPRESSOR PO SCH ×2 (08:51→20:54)
[2018-10-20] MEDS: VITAMIN B-1 PO SCH (08:51)
[2018-10-20] MEDS: NS 500 ML IV SCH (08:54)
[2018-10-20] MEDS: LEVAQUIN 750 MG/D5W 750 MG/150 ML IVPB IV SCH (08:54)
[2018-10-20] MEDS: LASIX IV SCH (08:54)
[2018-10-20 09:00] LABS: BANDS 2 % (0-1); EOS 2 % (1-10); LYMPHS 2 % (21-51); MONO 2 % (1-9); SEGS 92 % (42-75)
[2018-10-20] MEDS: NON-FORMULARY BULK MED NG SCH (09:02)
--- NOTE | 2018-10-20 09:32 | PROGRESS NOTE ---
DATE: 10/20/2018 SUBJECTIVE: I had to go back up on his O2. He is still intubated. OBJECTIVE: Vitals: Temperature 98.7 degrees, pulse 132, respirations 30, blood pressure 107/68. Eyes: Pupils are equal and round. Lungs: Clear in all lung butterfield. Cardiovascular: Regular rhythm and rate without murmur or S3. URINE OUTPUT: 4400 mL. LABORATORY DATA: Review of laboratory this morning, white count still elevated at 14,050, hematocrit is 26, hemoglobin 8.4, platelet count 505,000. Chemistry: Sodium 153, potassium 3.7, chloride 112, BUN 25, creatinine 0.6. Blood sugars 129, 138, 130, 114. ASSESSMENT AND PLAN: 1. Pneumococcal pneumonia associated with bacteremia. Also immunoglobulin deficiency. This is I think day two of high-dose Rocephin. So replenish his immunoglobulin I think is the plan as well. He has been receiving Levaquin. This is the 5th day of treatment. This is the 1st day of high-dose Rocephin I guess. 2. Respiratory failure. Still trying to wean him off the ventilator. Worsening right lung infiltrates. Change in antibiotics today. 3. Suspect he went through some alcohol withdrawal, which I think we are through. cc: Corbin Goodrich MD
[2018-10-20] MEDS: ROCEPHIN 2 GM in NS 50 ML IV SCH ×2 (09:55→20:58)
[2018-10-20] MEDS: TYLENOL NG PRN (15:28)
[2018-10-20] MEDS: HALDOL IV PRN (20:50)
[2018-10-20] MEDS: PROTONIX IV SCH (20:58)
[2018-10-20] MEDS: FOLIC ACID 1 MG in NS 50 ML IV SCH (20:58)
[2018-10-21] MEDS: ATIVAN 20 MG in NS 190 ML IV SCH ×6 (00:32→20:07)
[2018-10-21] MEDS: CARDIZEM NG SCH ×4 (01:52→20:05)
[2018-10-21] MEDS: LIBRIUM PO SCH ×4 (02:03→20:05)
[2018-10-21] MEDS: DUONEB (A & A) INH SCH ×6 (03:30→23:30)
[2018-10-21] MEDS: HALDOL IV PRN ×2 (04:13→21:39)
[2018-10-21 04:53] LABS: ALLEN TEST YES; BE 8.6 mmoll (-3.0-3.0); BLOOD TYPE ARTERIAL; HCO3-(ACT) 31.6 mmoll (20.0-26.0); O2(CT) 12.4 mL/dL (15.0-23.0); O2HB 93.1 % (95.0-99.0); PCO2(98.6) 47 mmHg (35-45); PO2(98.6) 65 mmHg (60-100); SAMPLE BLOOD; SAO2 94.1 % (95.0-100.0); SRATE 20 BPM; THB 9.4 g/dL (11.5-17.4); TVOL 500 mL; pH(98.6) 7.46 (7.35-7.45)
[2018-10-21 04:55] LABS: MODALITY VENTILATOR
[2018-10-21 05:24] LABS: AGAP 11; ALB/GLOB RATIO 0.6; ALBUMIN 2.1 g/dL (3.5-5.0); ALKALINE PHOSPHATASE 180 U/L (32-122); BUN 22 mg/dL (8-22); CHLORIDE 112 mmol/L (98-107); COSMO 309; CREATININE 0.7 mg/dL (0.7-1.2); ESTIMATED GFR > 60; GLUCOSE 129 mg/dL (70-104); GOT 32 U/L (10-34); GPT 27 U/L (10-44); POTASSIUM 3.6 mmol/L (3.5-5.1); SODIUM 153 mmol/L (136-145); TCO2 30 mmol/L (25-35); TOTAL BILIRUBIN 0.21 mg/dL (0.20-1.00); TOTAL PROTEIN 5.7 g/dL (6.3-8.3)
[2018-10-21] MEDS ORDERED: D5W 1,000 ML IV SCH (06:30)
[2018-10-21] MEDS: LOVENOX SUBQ SCH (06:31)
--- NOTE | 2018-10-21 06:35 | Diag Imaging Result Doc PS360 ---
CHEST-1 VIEW - 10/21/2018 INDICATION: SOB COMPARISON: 10/20/2018 FINDINGS: Support lines and tubes are stable. Stable extensive bilateral infiltrates. There are probably pleural effusions. Heart size remains top normal. IMPRESSION: No change from prior. Electronically signed by Mateo Campos 10/21/2018 6:33 AM
[2018-10-21] MEDS: ROCEPHIN 2 GM in NS 50 ML IV SCH ×2 (08:17→20:05)
[2018-10-21] MEDS: LEVAQUIN 750 MG/D5W 750 MG/150 ML IVPB IV SCH (08:17)
[2018-10-21] MEDS: NS 500 ML IV SCH (08:18)
[2018-10-21] MEDS: LOPRESSOR PO SCH ×2 (08:19→20:04)
[2018-10-21] MEDS: NON-FORMULARY BULK MED NG SCH (08:19)
[2018-10-21] MEDS: VITAMIN B-1 PO SCH (08:19)
--- NOTE | 2018-10-21 09:32 | PROVIDER PROGRESS NOTE ---
Progress Note Pulmonary additional note: Mr. Almanza Has High O2 demand due to pneumonia and volume overload. He has been on DVT prophylaxis. He is approaching potential need for tracheotomy. He needs diuresis but this gets limited by hypernatremia. Please see written note also.
[2018-10-21] MEDS: LASIX IV SCH ×2 (10:28→21:39)
--- NOTE | 2018-10-21 10:35 | INFECTIOUS DISEASE PROGRESS NO ---
DATE: 10/21/2018 PRESENT ILLNESS: The patient has pneumococcal pneumonia and an associated bacteremia. He also has an immunoglobulin deficiency. I am concerned that the patient's chest x-ray is not getting any better and his O2 saturations are not getting better either. It may be that the patient has developed a superimposed new infection in the patient's lungs. MEDICATIONS: This is day 8 of treatment with Rocephin and day 6 of treatment with Levaquin. The patient previously had an immunoglobulin infusion. PHYSICAL EXAMINATION: Vital Signs: Temperature is 97.5 degrees, pulse 98, respirations 28, blood pressure is 101/57. General: This is an ill-appearing, middle-aged male. He is intubated and sedated. He does have sanguinous secretions from the orotracheal tube in place. Neck: There is no resistance to movement. Head, Eyes, Ears, Nose, and Throat: There is no drainage from the ears or nose. He does have orotracheal and nasogastric tubes in place. Lungs: Bilateral rhonchi. Cardiovascular: Heart rate is regular. Abdomen: Soft and nontender. Neurologic: The patient today appears to be obtunded. He does not respond to verbal stimuli and his eyes are closed. Thorax: The patient has a right-sided subclavian catheter in place. The site is not erythematous or purulent. LAB AND X-RAY: Chest x-ray shows stable bilateral infiltrates. There is no CBC for today. The alkaline phosphatase is 180. Creatinine is 0.7. GFR is greater than 60. Arterial blood gases show a pH of 7.46, a PO2 of 65, and a pCO2 of 47. ASSESSMENT AND PLAN: The patient has pneumococcal pneumonia and bacteremia. Also, he has an immunoglobulin deficiency. I am concerned that the patient may have developed a superimposed pneumonia on top of the pneumococcal pneumonia he has. My plan is to continue the current antibiotics and send down a specimen for sputum Gram stain and culture. COMORBIDITIES: Include cigarette smoking, alcohol abuse, immunoglobulin deficiency, and chronic obstructive pulmonary disease. cc: Sergey Cruz MD
[2018-10-21] MEDS: ALBUMIN 25% IV SCH (10:58)
[2018-10-21] MEDS: TYLENOL NG PRN ×2 (10:59→20:05)
[2018-10-21 16:13] LABS: pH(98.6) 7.56 (7.35-7.45)
[2018-10-21] MEDS: FOLIC ACID 1 MG in NS 50 ML IV SCH (20:05)
[2018-10-21] MEDS: PROTONIX IV SCH (20:05)
--- NOTE | 2018-10-21 22:00 | PROGRESS NOTE ---
DATE: 10/21/2018 SUBJECTIVE: The patient is currently sedated on the ventilator. No acute events noted overnight. OBJECTIVE: Vital Signs: Temperature 101, blood pressure 113/62, heart rate 105, respirations 29, O2 saturation 94% on the mechanical ventilator with an FiO2 of 70%. General: This is a chronically ill-appearing elderly male currently sedated on the ventilator. Head: Normocephalic atraumatic. Heart: S1, S2 normal. Tachycardic. Lungs: Coarse breath sounds bilaterally. Abdomen: Positive bowel sounds. Soft, nontender, nondistended. Extremities: 3+ edema in the upper and lower extremities. Neurologic: The patient is currently sedated on the ventilator. LABORATORY DATA: ABG with pH of 7.46, pCO2 47, PO2 65. Sodium 153, potassium 3.6, chloride 112, CO2 30, BUN 22, creatinine 0.7, glucose 129, albumin 2.1. ASSESSMENT AND PLAN: 1. Acute hypoxemic and hypercapnic respiratory failure. The patient has pulmonary edema and pneumonia. Continue with ventilatory support as directed by the machine welt butter. 2. Pneumonia. Continue with broad-spectrum antibiotic therapy as directed by Dr. Cruz. 3. Acute pulmonary edema with volume overload. We will start the patient on Lasix. We will also add albumin. 4. Hypernatremia. Will increase the free water flush via the NGT. 5. Leukocytosis: Unchanged. Continue with antibiotic therapy. 6. Chronic obstructive pulmonary disease exacerbation. Continue with bronchodilator therapy. 7. Atrial fibrillation. The patient is currently on Cardizem. Cardiology is following. 8. Alcohol dependence. Aware. 9. Anemia. Stable. 10. Nutrition. The patient is currently on tube feeds. 11. Gastrointestinal prophylaxis. Continue on IV Protonix. 12. Deep vein thrombosis prophylaxis. Continue on Lovenox. cc: Rachael Quiñonez MD MTDD
[2018-10-22] MEDS ORDERED: OFIRMEV 1000 MG/ISOTONIC SOLN 1,000 MG/100 ML BOTTLE IV ONE ×2 (01:24→12:40)
[2018-10-22 01:32] LABS: URINE SOURCE CATH
[2018-10-22 01:45] LABS: BILIRUBIN URINE NEGATIVE (NEGATIVE); BLOOD URINE MODERATE (NEGATIVE); COLOR YELLOW; GLUCOSE URINE NEGATIVE (NEGATIVE); KETONE URINE NEGATIVE (NEGATIVE); LEUKOCYTES URINE NEGATIVE (NEGATIVE); NITRITE URINE NEGATIVE (NEGATIVE); PROTEIN URINE TRACE mg/dL (NEGATIVE); SP GRAVITY URINE 1.013; TURBIDITY URINE CLEAR (CLEAR); UROBILINOGEN URINE NORMAL (NORMAL)
[2018-10-22 01:49] LABS: UR EPITHELIAL CELLS <10 /HPF (<10); URINE BACTERIA NEGATIVE /HPF; URINE WBC <10 /HPF (<10)
[2018-10-22 02:41] LABS: URINE CASTS NONE SEEN; URINE CRYSTALS NONE SEEN; URINE SMALL ROUND CELLS NONE SEEN; URINE YEAST PRESENT
[2018-10-22] MEDS: CARDIZEM NG SCH ×4 (02:47→20:00)
[2018-10-22] MEDS: DUONEB (A & A) INH SCH ×6 (03:30→22:31)
[2018-10-22 04:55] LABS: ALLEN TEST YES; BE 9.2 mmoll (-3.0-3.0); BLOOD TYPE ARTERIAL; HCO3-(ACT) 32.1 mmoll (20.0-26.0); METHB 0.5 % (0.0-1.5); O2(CT) 10.3 mL/dL (15.0-23.0); O2HB 95.1 % (95.0-99.0); PO2(98.6) 72 mmHg (60-100); SAMPLE BLOOD; SAO2 98.2 % (95.0-100.0); SRATE 20 BPM; THB 7.6 g/dL (11.5-17.4); TVOL 500 mL; pH(98.6) 7.43 (7.35-7.45)
[2018-10-22 04:56] LABS: MODALITY VENTILATOR
[2018-10-22 04:57] LABS: PCO2(98.6) 52 mmHg (35-45)
[2018-10-22] MEDS: LIBRIUM PO SCH ×3 (05:23→13:59)
[2018-10-22 05:57] LABS: AGAP 10; BUN 26 mg/dL (8-22); CALCIUM 7.7 mg/dL (8.8-10.2); CHLORIDE 112 mmol/L (98-107); COSMO 309; CREATININE 0.8 mg/dL (0.7-1.2); ESTIMATED GFR > 60; GLUCOSE 108 mg/dL (70-104); POTASSIUM 3.1 mmol/L (3.5-5.1); SODIUM 153 mmol/L (136-145); TCO2 31 mmol/L (25-35)
[2018-10-22 06:21] LABS: BASO# 0.07 X1000 (0.0-0.2); BASO% 0.6 % (0.0-0.8); EOS# 0.12 X1000 (0.0-0.7); HEMATOCRIT 21.9 % (42.0-52.0); IMM GRAN# 0.03 X1000 (0.0-0.04); IMM GRAN% 0.3 % (0.0-0.5); LYMPH# 0.92 X1000 (1.2-3.4); LYMPH% 7.7 % (20.5-51.1); MCH 32.1 PG (27-31); MCV 100.5 FL (81-99); MONO# 1.01 X1000 (0.11-0.59); MONO% 8.4 % (1.7-9.3); MPV 9.9 FL (7.4-10.4); NEUT# 9.84 X1000 (1.4-6.5); PLT 491 X1000 (130-400); RBC 2.18 XMIL (4.7-6.1); WBC 11.99 X1000 (4.8-10.8)
[2018-10-22] MEDS: LOVENOX SUBQ SCH ×2 (06:30→20:21)
--- NOTE | 2018-10-22 06:50 | Diag Imaging Result Doc PS360 ---
CHEST-1 VIEW - 10/22/2018 INDICATION: SOB COMPARISON: 10/21/2018 FINDINGS: Support lines and tubes are stable. Stable dense bilateral infiltrates. Heart size remains normal. IMPRESSION: No change from prior. Electronically signed by Mateo Campos 10/22/2018 6:47 AM
[2018-10-22 06:55] LABS: ALB/GLOB RATIO 0.7; ALBUMIN 2.4 g/dL (3.5-5.0); DIRECT BILIRUBIN 0.1 mg/dL (0.00-0.20); TOTAL BILIRUBIN 0.22 mg/dL (0.20-1.00); TOTAL PROTEIN 5.7 g/dL (6.3-8.3)
[2018-10-22] MEDS: TYLENOL NG PRN (07:14)
[2018-10-22] MEDS: D5W 1,000 ML IV SCH ×2 (07:50→22:14)
[2018-10-22] MEDS: ATIVAN 20 MG in NS 190 ML IV SCH ×5 (07:52→22:58)
[2018-10-22] MEDS: LASIX IV SCH ×2 (07:52→16:06)
[2018-10-22] MEDS ORDERED: POTASSIUM CHLORIDE 20% LIQUID PO ONE (08:00)
[2018-10-22 08:08] LABS: HEMATOCRIT 23.7 % (42.0-52.0); HEMOGLOBIN 7.4 g/dL (14.0-18.0)
[2018-10-22] MEDS: ALBUMIN 25% IV SCH (08:19)
[2018-10-22] MEDS: ROCEPHIN 2 GM in NS 50 ML IV SCH (08:19)
[2018-10-22] MEDS: LEVAQUIN 750 MG/D5W 750 MG/150 ML IVPB IV SCH (08:22)
[2018-10-22] MEDS: VITAMIN B-1 PO SCH (08:22)
[2018-10-22] MEDS: LOPRESSOR PO SCH ×2 (08:22→20:04)
[2018-10-22] MEDS: NON-FORMULARY BULK MED NG SCH (08:22)
[2018-10-22] MEDS: NS 500 ML IV SCH (08:23)
[2018-10-22 08:38] LABS: MAGNESIUM 2.1 mg/dL (1.5-2.7); PHOSPHORUS 3.9 mg/dL (2.7-4.5)
[2018-10-22] MEDS ORDERED: VANCOMYCIN IV PER PHARMACY MISC SCH (09:15)
[2018-10-22] MEDS ORDERED: MERREM 2 GM in NS 50 ML IV SCH (09:30)
[2018-10-22] MEDS: HALDOL IV PRN (09:33)
[2018-10-22] MEDS: MERREM 2 GM in NS 100 ML IV SCH ×2 (10:16→17:28)
[2018-10-22] MEDS: MYCAMINE 100 MG in NS 100 ML IV SCH (10:16)
--- NOTE | 2018-10-22 10:21 | INFECTIOUS DISEASE PROGRESS NO ---
DATE: 10/22/2018 PRESENT ILLNESS: The patient initially had pneumococcal pneumonia with an associated bacteremia, but he has had a long treatment for that and he continues to have fever and bilateral pulmonary infiltrates. Therefore, I am very concerned that the patient may have a super infection, possibly in the lungs or possibly due to fungal infection in the urinary tract as seen on the urinalysis which had fungi present. It is also possible that the patient could have a disseminated fungal infection also. MEDICATIONS: This is the 9th day of treatment with Rocephin and the 7th day of treatment with Levaquin. The patient has previously had an immunoglobulin infusion to bring the immunoglobulin levels back to normal. PHYSICAL EXAMINATION: Vital Signs: Temperature maximum earlier was 103.2, pulse is 95, respirations 29, blood pressure is 105/57. General: This is an ill-appearing, middle-aged male. He is intubated and sedated. HEENT: He has orotracheal and nasogastric tubes in place. His eyes are closed. There is no drainage from his nose or ears. Neck: Supple. Lungs: Scattered rhonchi bilaterally. Cardiovascular: Heart rate is regular. Abdomen: Soft and nontender. Neurologic: The patient is obtunded. There is no tremor. Integument: No rash. LAB AND X-RAY: Chest x-ray shows stable bilateral infiltrates. The urinalysis showed no white cells or bacteria, but yeast was present. Creatinine is 0.8, GFR is greater than 60, alkaline phosphatase is 171. Patient's blood gases show a pH of 7.43, a PO2 of 72, and a pCO2 of 52. CBC shows a white count of 11,990, hemoglobin 7.4, and platelet count 491,000. ASSESSMENT AND PLAN: The patient had pneumococcal pneumonia and bacteremia. Now, he may have a superimposed infection. It could be due to a pneumonia, could originate from an IV catheter or possibly from the urinary tract. Blood and sputum cultures have been ordered as has a urine culture. I have discontinued the patient's current antibiotics, namely Rocephin and Levaquin, and instead I have started the patient on vancomycin, meropenem and micafungin. Also, I am going to check the patient's immunoglobulin levels and, if the IgG level is low, I will give him another infusion of IVIG. COMORBIDITIES: Comorbidities in this patient are cigarette smoking, chronic obstructive pulmonary disease, alcohol abuse, immunoglobulin deficiency. cc: Sergey Cruz MD
[2018-10-22] MEDS ORDERED: VANCOMYCIN 2 GM in NS 500 ML IV ONE (11:00)
[2018-10-22 12:36] LABS: INR 1.06; PROTIME 14.6 Seconds (11.0-16.0)
[2018-10-22] MEDS ORDERED: NS 250 ML ONE (14:24)
--- NOTE | 2018-10-22 15:19 | Diag Imaging Result Doc PS360 ---
EXAM: CT ANGIOGRM PULMONARY ARTERIES INDICATION: Hypoxemia TECHNIQUE: This exam was performed using automated exposure control, adjustment of mA or kV according to patient size, and/or use of iterative reconstruction technique. Then section axial images and 3-D MIPS were obtained. COMPARISON: Unenhanced study dated 10/15/2018 FINDINGS: There is a solitary filling defect in a second order branch of the left pulmonary artery leading to the left upper lobe. It can be seen on image 76 of series 4. It is consistent with a pulmonary embolus. It appears to adhere to the wall of the vessel. This suggests that it may be subacute. Please correlate clinically. The clot burden is low as no other pulmonary artery filling defects are appreciated. There is no evidence of aortic dissection or aneurysm. There is no cardiomegaly. There are shotty nonspecific mediastinal lymph nodes that are stable. An ET tube and NG tube are in place. The dense airspace consolidation that is completely opacifying the right lower lobe as well as the inferior aspect of the right upper lobe seen on the previous study is again identified. It appears to be marginally more extensive than the previous study as occupies a slightly larger portion of the right upper lobe. In the opacified right lower lobe, there is a large region of slightly decreased attenuation suggesting possible developing parenchymal necrosis/phlegmon. There are some opacified vessels that traverse region, however. The consolidation on the left mainly involving the left lower lobe has worsened. It involves nearly completely left lower lobe and now a small portion of the left upper lobe. Interstitial thickening suggesting edema is again noted. There are bilateral small pleural fluid collections that are similar to the previous study. Limited views of the upper abdomen are essentially unremarkable. IMPRESSION: 1.Very dense airspace consolidations bilaterally that is worse on the right. Both consolidations are at least somewhat more extensive than the previous study. 2.Developing region of low density within the opacified right lower lobe that is worrisome for developing necrosis/phlegmon. 3.Small filling defect in a second order branch of the left pulmonary artery leading to the left upper lobe that is suspicious for a small pulmonary embolism. Please see above discussion. 4.Interstitial edema that is similar to the previous study. Electronically signed by Phill Burroughs 10/22/2018 3:16 PM
[2018-10-22] MEDS: FOLIC ACID 1 MG in NS 50 ML IV SCH (20:05)
[2018-10-22] MEDS: PROTONIX IV SCH (20:05)
--- NOTE | 2018-10-22 20:06 | GENERAL SURGERY CONSULTATION ---
DATE: 10/22/2018 TIME SEEN: 5:15 p.m. HISTORY OF PRESENT ILLNESS: Mr. Almanza is an unfortunate 57-year-old who was admitted a couple of weeks ago and suffered a cardiopulmonary arrest, requiring endotracheal intubation. He has been on the ventilator since then. Attempts to wean him off the ventilator have been unsuccessful. I have now been asked to place a tracheostomy. He has signs of respiratory failure. He has pneumonia, possible pulmonary embolus, hypernatremia, leukocytosis, COPD, atrial fibrillation, alcohol dependence. MEDICATIONS: He was not on any prescription medications when he was admitted. ALLERGIES: He has no known drug allergies. SOCIAL HISTORY: He is a drinker. He does smoke cigarettes regularly. REVIEW OF SYSTEMS: Otherwise unobtainable. PHYSICAL EXAMINATION: His temperature is 99.6 degrees, heart rate 89, blood pressure 139/71. His endotracheal tube is in position. His neck is supple. Bilateral breath sounds. Heart is regular rate and rhythm. ASSESSMENT: Respiratory failure. PLAN: Tracheostomy. I have discussed this with his brother, who says he is aware of the need and agrees for us to proceed. We will plan to proceed tomorrow in the operating room. cc: Mekhi Howard MD
--- NOTE | 2018-10-22 20:16 | PROGRESS NOTE ---
DATE: 10/22/2018 SUBJECTIVE: The patient remains sedated on the ventilator. The patient was noted to be febrile overnight with a temperature of 103 degrees. OBJECTIVE: Vital signs: T-max 103 degrees, blood pressure 139/72, heart rate 89, respirations 20, O2 saturation 96% on mechanical ventilator. Intake 3.8 L, output 2.6 L.General: This is a chronically ill-appearing elderly male, currently sedated on the ventilator. Head normocephalic, atraumatic. Heart: S1, S2 normal. Regular rate and rhythm. Lungs: Coarse breath sounds bilaterally with rhonchi. Abdomen: Positive bowel sounds. Soft, nontender, nondistended. Extremities: Edema 3+ in the upper and lower extremities. Neurologic: The patient is currently sedated. LABORATORY DATA: White blood cell count 11, hemoglobin 7.4, hematocrit 23, platelets 491,000. ABG pH of 7.4, pCO2 is 52, pO2 is 72, bicarbonate 32. Sodium 150, potassium 3.1, chloride 112, CO2 is 31, BUN 26, creatinine 0.8, glucose 108, calcium 7.7, alkaline phosphatase 178, AST 30, ALT 23, albumin 2.4. DIAGNOSTIC DATA: Pulmonary arteriogram reveals very dense bilateral air-space consolidations, worse on the right; right lower lobe with a developing necrotic area and possible phlegmon; also left upper lobe small pulmonary embolism; interstitial edema. ASSESSMENT AND PLAN: 1. Acute hypoxemic and hypercapnic respiratory failure. Multifactorial. The patient has a pulmonary embolism, acute respiratory distress syndrome, pulmonary edema and necrotizing pneumonia. Continue with ventilatory support, intravenous antibiotics and intravenous diuretic therapy. Management as per the machine setter automatic. 2. Necrotizing pneumonia. The patient's antibiotics have been adjusted and the patient has been started on micafungin. Further management as per Dr. Cruz. 3. Acute respiratory distress syndrome. Continue with ventilatory support. The patient is scheduled for tracheostomy tomorrow. 4. Acute pulmonary edema with volume overload. We will increase the Lasix dosage to 60 mg intravenously every 8 hours. Continue with albumin. 5. Acute pulmonary embolism. We will start the patient on Lovenox. 6. Leukocytosis. Unchanged. 7. Chronic obstructive pulmonary disease exacerbation. Continue on the current treatment plan. 8. Hypernatremia. Improved. We will continue with D5W today and hopefully we can discontinue it tomorrow. The patient is currently receiving free water flushes via the nasogastric tube. 9. Atrial fibrillation. The patient is currently rate-controlled. 10. Alcohol dependence. Aware. 11. Nutrition. Continue with tube feeds. 12. Hypokalemia. Will replace the potassium. 13. Gastrointestinal prophylaxis. Continue on intravenous Protonix. 14. Disposition. The patient's clinical status was discussed with the patient's [id number] this morning. The patient is currently a Full Code. He remains critically ill with a high risk of mortality. cc: Rachael Quiñonez MD MTDD
[2018-10-23] MEDS: LASIX IV SCH ×4 (00:19→23:57)
[2018-10-23] MEDS: MERREM 2 GM in NS 100 ML IV SCH ×3 (01:54→17:38)
[2018-10-23] MEDS: CARDIZEM NG SCH ×4 (02:55→19:13)
[2018-10-23] MEDS: ATIVAN 20 MG in NS 190 ML IV SCH ×7 (02:57→21:58)
[2018-10-23] MEDS: DUONEB (A & A) INH SCH ×6 (03:57→22:48)
[2018-10-23 04:34] LABS: ALLEN TEST YES; BE 10.8 mmoll (-3.0-3.0); BLOOD TYPE ARTERIAL; HCO3-(ACT) 33.3 mmoll (20.0-26.0); METHB 1.2 % (0.0-1.5); O2(CT) 15.6 mL/dL (15.0-23.0); O2HB 93.5 % (95.0-99.0); PO2(98.6) 71 mmHg (60-100); SAMPLE BLOOD; SAO2 96.3 % (95.0-100.0); SRATE 20 BPM; THB 11.8 g/dL (11.5-17.4); TVOL 500 mL; pH(98.6) 7.44 (7.35-7.45)
[2018-10-23 04:37] LABS: MODALITY VENTILATOR; PCO2(98.6) 54 mmHg (35-45)
[2018-10-23] MEDS: VANCOMYCIN 1,800 MG in NS 250 ML IV SCH ×2 (05:45→23:57)
[2018-10-23 06:05] LABS: BASO# 0.08 X1000 (0.0-0.2); BASO% 0.7 % (0.0-0.8); EOS# 0.16 X1000 (0.0-0.7); EOS% 1.3 % (0.0-10.0); HEMATOCRIT 22.1 % (42.0-52.0); HEMOGLOBIN 6.9 g/dL (14.0-18.0); IMM GRAN# 0.04 X1000 (0.0-0.04); IMM GRAN% 0.3 % (0.0-0.5); LYMPH% 6.5 % (20.5-51.1); MCH 31.5 PG (27-31); MCHC 31.2 g/dL (33-37); MCV 100.9 FL (81-99); MONO# 0.89 X1000 (0.11-0.59); MONO% 7.2 % (1.7-9.3); MPV 9.9 FL (7.4-10.4); NEUT# 10.33 X1000 (1.4-6.5); PLT 488 X1000 (130-400); RBC 2.19 XMIL (4.7-6.1); RDW 14.9 % (11.5-14.5)
[2018-10-23 06:12] LABS: AGAP 10; BUN 24 mg/dL (8-22); CALCIUM 8.4 mg/dL (8.8-10.2); CHLORIDE 106 mmol/L (98-107); COSMO 302; CREATININE 0.6 mg/dL (0.7-1.2); ESTIMATED GFR > 60; GLUCOSE 106 mg/dL (70-104); POTASSIUM 2.8 mmol/L (3.5-5.1); SODIUM 150 mmol/L (136-145); TCO2 34 mmol/L (25-35)
[2018-10-23] MEDS ORDERED: POTASSIUM CHLORIDE 40 MEQ/SWI 40 MEQ/100 ML IVPB IV ONE (06:49)
[2018-10-23] MEDS ORDERED: POTASSIUM CHLORIDE 60 MEQ in NS 500 ML IV ONE (06:56)
--- NOTE | 2018-10-23 07:10 | Diag Imaging Result Doc PS360 ---
EXAM: CHEST-1 VIEW 10/23/2018 HISTORY: SOB TECHNIQUE: AP portable at 0533 COMMENT: There is an endotracheal tube with its tip slightly below the thoracic inlet and an NG tube which passes below the diaphragm. There are dense alveolar opacities throughout both lower lung butterfield particularly the right lower lobe. There are probable pleural effusions. Compared to 10/22/2018 there has been no appreciable change. The pulmonary edema is slightly worse than on 10/21/2018 however. IMPRESSION: Pulmonary edema/ARDS. Electronically signed by Anthony Bustamante 10/23/2018 7:08 AM
[2018-10-23] MEDS ORDERED: NS 500 ML IV ONE (08:00)
[2018-10-23] MEDS ORDERED: FOLIC ACID NG SCH (09:00)
[2018-10-23 09:10] LABS: RETIC% 1.22 % (0.8-2.1); RETIC-HE 31.4 PG (28.2-36.6)
[2018-10-23 09:20] LABS: IRON SATURATION 20 %; TIBC 88 ug/dL; TOTAL IRON 18 ug/dL (53-167); UNBOUND IRON 70 ug/dL (112-346)
[2018-10-23] MEDS: ALBUMIN 25% IV SCH (09:32)
[2018-10-23] MEDS: LOPRESSOR PO SCH ×2 (09:32→20:09)
[2018-10-23] MEDS: VITAMIN B-1 PO SCH (09:32)
[2018-10-23] MEDS: LOVENOX SUBQ SCH ×2 (09:33→20:09)
[2018-10-23] MEDS: NON-FORMULARY BULK MED NG SCH (09:33)
[2018-10-23] MEDS: MYCAMINE 100 MG in NS 100 ML IV SCH (09:33)
[2018-10-23 09:39] LABS: FERRITIN 1685 ng/mL (30-400)
--- NOTE | 2018-10-23 11:41 | PROGRESS NOTE ---
DATE: 10/23/2018 PRESENT ILLNESS: The patient has been treated for pneumococcal pneumonia and associated bacteremia. Starting in the last few days, he has taken a turn for the worse, manifested by a high fever. He has dense infiltrates in both lungs. The exact etiology of his worsening is uncertain to me at this time. He may have developed a superinfection such as a pneumonia with a different organism than the pneumococcus that he previously had. He could have a fungal superinfection. He also could have had an infection from his PICC. MEDICATIONS: This is day 1 of treatment with meropenem, micafungin, and vancomycin. PHYSICAL EXAMINATION: Vital Signs: Temperature is 100 degrees, pulse 80, respirations 24, blood pressure 110/57. General: This is an ill-appearing, middle-aged male. He is intubated and sedated. Head, Eyes, Ears, Nose, and Throat: Orotracheal and NG tubes are in place. The patient's eyelids were closed. Neck: No stiffness. Lungs: Clear to auscultation. Cardiovascular: Heart rate is irregular. Abdomen: Soft. It did not seem to be tender. Neurologic: The patient has a decreased level of consciousness. He did not respond to verbal stimuli. There was no tremor. Integument: No rash noted. Extremities: The patient has a PICC in his left arm. The site is not erythematous or swollen. LAB AND X-RAY: The patient's CBC today shows a white count of 12,300, hemoglobin is 6.9, and platelet count is 488,000. Blood gases show a pH of 7.44, a pO2 of 71, and a pCO2 of 54. Creatinine is 0.6, GFR is greater than 60. The patient's IgG level is 787, IgA is 647. The patient has received IVIG and that is the reason that the IgG level, which initially was low, is now in the normal range. Chest x-ray shows bilateral dense opacities. ASSESSMENT AND PLAN: Patient has developed, in my opinion, a superimposed infection. The possibilities of what it could be are mentioned above. The patient's temperature is staying down now so that may mean that the new antimicrobial agents are treating a superimposed infection and for that reason, I am going to continue them. The patient also, as mentioned above, has an immunoglobulin deficiency but that temporarily has been made normal because of infusion of IVIG. COMORBIDITIES: Cigarette smoking, chronic obstructive pulmonary disease, alcohol abuse, immunoglobulin deficiency. cc: Sergey Cruz MD
--- NOTE | 2018-10-23 13:09 | PROGRESS NOTE ---
DATE: 10/23/2018 SUBJECTIVE: The patient remains sedated on the ventilator. He is currently on a cooling blanket. No acute events noted overnight. OBJECTIVE: Vital Signs: Temperature 99.4 degrees, blood pressure 106/61, heart rate 85, respirations 20, and O2 saturations 97% on the mechanical ventilator. Intake 6.3 L and output 4.7 L. General: This is a chronically ill-appearing elderly male currently sedated on the ventilator in no acute distress. Heart: S1, S2 normal. Tachycardic. Lungs: Coarse breath sounds bilaterally. Abdomen: Positive bowel sounds. Soft, nontender, and nondistended. Extremities: 3+ edema bilaterally. Neurologic: The patient is currently sedated on the ventilator. LABORATORY: White blood cell count 12, hemoglobin 6.9, hematocrit 22, and platelets 488,000. Sodium 150, potassium 2.8, chloride 106, CO2 34, BUN 24, creatinine 0.6, glucose 106. ProBNP 1000, albumin 2.6, and folate 23. ABG shows pH 7.44, pCO2 54, and PO2 71. Chest x-ray that shows pulmonary edema with ARDS. ASSESSMENT AND PLAN: 1. Acute hypoxemic and hypercapnic respiratory failure. Multifactorial. The patient has a pulmonary embolism, ARDS, pulmonary edema, and necrotizing pneumonia. Continue with ventilatory support as directed by the journeyman level acoustic analyst. We will also continue with IV antibiotics, IV diuretic therapy, IV steroids, and bronchodilator therapy. 2. Necrotizing pneumonia. Continue with the antibiotic and antifungal regimen as directed by Dr. Cruz. 3. ARDS. Continue with ventilatory support as directed by the journeyman level acoustic analyst. 4. Acute pulmonary edema with volume overload. Continue with diuretic therapy. We will continue to try to obtain a negative fluid balance. 5. Pulmonary hypertension. Aware. 6. COPD exacerbation. Continue with IV steroids and bronchodilator therapy 7. Acute pulmonary embolism. Continue on full-dose Lovenox. 8. Leukocytosis. Unchanged. Continue with antibiotic therapy. 9. Anemia. Will transfuse 2 units of packed red blood cells today. 10. Atrial fibrillation. The patient is currently rate controlled. 11. Hypernatremia. This is unchanged. We will increase the free water flushes via the NG tube. 12. Alcohol dependence. Aware. 13. Hypokalemia. We will replace the patient's potassium. 14. Constipation. We will check an abdominal x-ray. 15. Nutrition. Continue with tube feeds. 16. Disposition. The patient is currently a full code. The patient is critically ill with a high risk of mortality. cc: Rachael Quiñonez MD MTDD
--- NOTE | 2018-10-23 13:57 | Diag Imaging Result Doc PS360 ---
EXAM: ABDOMEN FLAT/UPRIGHT 10/23/2018 HISTORY: constipation TECHNIQUE: AP portable upright at 1335 COMMENT: There is an NG tube the tip of which is in the stomach. There is also an apparent pH probe the tip of which is in the fundus of the stomach. There is a pleural effusion on the right. There is bibasilar alveolar pulmonary opacity. IMPRESSION: NG tube in the stomach. Electronically signed by Anthony Bustamante 10/23/2018 1:55 PM
[2018-10-23] MEDS: REGLAN IV SCH ×2 (14:57→19:20)
[2018-10-23] MEDS: PROTONIX IV SCH (20:09)
[2018-10-23] MEDS: COLACE PO SCH (20:09)
[2018-10-23] MEDS: MIRALAX NG SCH (20:09)
[2018-10-23] MEDS: SODIUM CHLORIDE 0.9% INJ SCH (20:09)
[2018-10-23] MEDS: TYLENOL NG PRN (20:13)
[2018-10-24] MEDS: ATIVAN 20 MG in NS 190 ML IV SCH ×8 (00:54→20:30)
[2018-10-24] MEDS: CARDIZEM NG SCH ×4 (01:51→20:07)
[2018-10-24] MEDS: MERREM 2 GM in NS 100 ML IV SCH ×3 (01:51→17:43)
[2018-10-24] MEDS: REGLAN IV SCH ×4 (01:51→20:08)
[2018-10-24] MEDS: DUONEB (A & A) INH SCH ×6 (03:25→23:30)
[2018-10-24 04:22] LABS: ALLEN TEST YES; BE 10.9 mmoll (-3.0-3.0); BLOOD TYPE ARTERIAL; HCO3-(ACT) 33.4 mmoll (20.0-26.0); METHB 0.8 % (0.0-1.5); O2(CT) 12.6 mL/dL (15.0-23.0); O2HB 94.5 % (95.0-99.0); PCO2(98.6) 48 mmHg (35-45); PO2(98.6) 72 mmHg (60-100); SAMPLE BLOOD; SAO2 97.1 % (95.0-100.0); SRATE 20 BPM; THB 9.4 g/dL (11.5-17.4); TVOL 500 mL; pH(98.6) 7.48 (7.35-7.45)
[2018-10-24 04:23] LABS: MODALITY VENTILATOR
[2018-10-24 04:38] LABS: BASO# 0.08 X1000 (0.0-0.2); BASO% 0.8 % (0.0-0.8); EOS# 0.21 X1000 (0.0-0.7); EOS% 2.2 % (0.0-10.0); HEMATOCRIT 28.2 % (42.0-52.0); HEMOGLOBIN 9.1 g/dL (14.0-18.0); IMM GRAN# 0.09 X1000 (0.0-0.04); IMM GRAN% 0.9 % (0.0-0.5); LYMPH# 0.92 X1000 (1.2-3.4); LYMPH% 9.6 % (20.5-51.1); MCH 31.1 PG (27-31); MCHC 32.3 g/dL (33-37); MCV 96.2 FL (81-99); MONO# 0.78 X1000 (0.11-0.59); MONO% 8.1 % (1.7-9.3); MPV 9.8 FL (7.4-10.4); NEUT# 7.53 X1000 (1.4-6.5); NEUT% 78.4 % (42.2-75.2); PLT 447 X1000 (130-400); RBC 2.93 XMIL (4.7-6.1); RDW 16.8 % (11.5-14.5); WBC 9.61 X1000 (4.8-10.8)
[2018-10-24 05:09] LABS: AGAP 14; BUN 23 mg/dL (8-22); CALCIUM 8.1 mg/dL (8.8-10.2); CHLORIDE 104 mmol/L (98-107); COSMO 297; CREATININE 0.7 mg/dL (0.7-1.2); ESTIMATED GFR > 60; GLUCOSE 119 mg/dL (70-104); MAGNESIUM 1.9 mg/dL (1.5-2.7); PHOSPHORUS 3.5 mg/dL (2.7-4.5); POTASSIUM 2.8 mmol/L (3.5-5.1); SODIUM 147 mmol/L (136-145); TCO2 29 mmol/L (25-35)
[2018-10-24] MEDS ORDERED: POTASSIUM CHLORIDE 60 MEQ in NS 500 ML IV ONE (05:33)
[2018-10-24 05:36] LABS: ALB/GLOB RATIO 0.9; ALBUMIN 2.8 g/dL (3.5-5.0); DIRECT BILIRUBIN 0.1 mg/dL (0.00-0.20); TOTAL BILIRUBIN 0.26 mg/dL (0.20-1.00)
--- NOTE | 2018-10-24 07:13 | Diag Imaging Result Doc PS360 ---
EXAM: CHEST-PORTABLE 10/24/2018 HISTORY: dyspnea TECHNIQUE: AP portable at 0523 COMMENT: There is an endotracheal tube with its tip slightly below the thoracic inlet and an NG tube which passes below the diaphragm. There is a PICC line on the left with its tip in the superior vena cava just above the right atrium. There is diffuse interstitial opacity with denser alveolar opacification in the right lower lobe. This has not changed appreciably since 10/23/2018. IMPRESSION: Pulmonary edema and/or pneumonia/ARDS. Electronically signed by Anthony Bustamante 10/24/2018 7:11 AM
[2018-10-24] MEDS: LASIX IV SCH ×2 (08:30→15:39)
[2018-10-24] MEDS: LOVENOX SUBQ SCH ×2 (08:31→20:10)
[2018-10-24] MEDS: MIRALAX NG SCH ×2 (08:31→20:10)
[2018-10-24] MEDS: VITAMIN B-1 PO SCH (08:31)
[2018-10-24] MEDS: COLACE PO SCH ×2 (08:31→20:09)
[2018-10-24] MEDS: LOPRESSOR PO SCH ×2 (08:31→20:09)
[2018-10-24] MEDS ORDERED: DULCOLAX PR ONE (08:39)
[2018-10-24] MEDS ORDERED: D5W 1,000 ML IV SCH (09:30)
[2018-10-24] MEDS: MYCAMINE 100 MG in NS 100 ML IV SCH (09:42)
--- NOTE | 2018-10-24 14:33 | PROGRESS NOTE ---
DATE: 10/24/2018 SUBJECTIVE: The patient is currently sedated on the ventilator. He is currently on an Ativan drip. OBJECTIVE: Vital Signs: Temperature 98.2 degrees, blood pressure 94/58, heart rate 84, respirations 19, O2 saturation 95% on the mechanical ventilator. Intake 6.7 L, output 3.9 L. General: This is a chronically ill-appearing, elderly male, currently sedated on the ventilator. Head: Normocephalic, atraumatic. Heart: S1, S2. Normal. Regular rate and rhythm. Lungs: Coarse breath sounds bilaterally. Abdomen: Positive bowel sounds. Soft, nontender, nondistended. Extremities: 3+ edema in the lower and upper extremities. Neurologic: The patient will open his eyes when his name is called. LABORATORY DATA: White blood cell count 9.6, hemoglobin 9.1, hematocrit 28, platelets 447,000. Sodium 147, potassium 2.8, chloride 104, CO2 29, BUN 23, creatinine 0.7, glucose 119. AST 25, ALT 21, alkaline phosphatase 154, albumin 2.8. Magnesium 1.9, phosphorus 3.5. IMAGING: Chest x-ray shows pulmonary edema, pneumonia and ARDS. ASSESSMENT AND PLAN: 1. Acute hypoxemic and hypercapnic respiratory failure. Multifactorial. Continue with ventilatory support. 2. Acute respiratory distress syndrome. Continue to try and control the patient's volume and continue with ventilatory support as directed by the flute teacher. 3. Necrotizing pneumonia. Continue with the current treatment regimen as outlined by Dr. Cruz. 4. Acute pulmonary edema with volume overload. We will increase the patient's diuretic dosage today to try and obtain a negative fluid balance. 5. Status post cardiac arrest. Aware. 6. Pulmonary hypertension. Aware. 7. Chronic obstructive pulmonary disease exacerbation. Continue on IV steroids and bronchodilator therapy. 8. Pulmonary embolism. Continue on full-dose Lovenox. 9. Anemia. Improved. The patient received 2 units of packed red blood cells yesterday. 10. Hypernatremia. Improved. Continue with free water via the NG tube. 11. Alcohol dependence. Aware. 12. Hypokalemia. We replaced the patient's potassium. 13. Bacteremia secondary to streptococcus. Repeat blood cultures remain negative. 14. Gastrointestinal prophylaxis. Continue on Protonix. 15. Disposition. The patient's brother and [id number] were updated about the patient's medical condition. The patient remains critically ill with a high risk of mortality. cc: Rachael Quiñonez MD MTDD
--- NOTE | 2018-10-24 15:14 | PULMONOLOGY PROGRESS NOTE ---
DATE: 10/24/2018 SUBJECTIVE: The patient is arousable. He appears to be comfortable on mechanical ventilation. He has copious amounts of endotracheal secretions. OBJECTIVE: Vital Signs: Maximum temperature in the last 24 hours 100.2 degrees, BP 124/69, heart rate 90, respiratory rate 22, oxygen saturation 100% on mechanical ventilation at 70% FiO2. HEENT: Pupils are equal. Oropharynx appears clear. Neck: Supple. Chest: Reveals coarse rhonchi bilaterally with decreased breath sounds in the right base. Cardiac exam: S1, S2. Abdomen: Soft with positive bowel sounds. Extremities: Reveals trace edema. LABORATORY DATA: Sodium 147, potassium 2.8, chloride 104, bicarbonate 29. BUN 23, creatinine 0.7. White blood count 9.6, hemoglobin 9.1, platelet count 447,000. MICROBIOLOGY: Most recent microbiology reveals no growth on sputum and blood cultures 10/21/2018. IMAGING: Chest x-ray reveals dense infiltrate with near-complete opacification of the right lower lobe with less infiltrates on the left. No change from 10/23/2018. IMPRESSION: A 57-year-old with pneumococcal pneumonia, pulmonary emboli, acute hypoxemic respiratory failure, protein calorie malnutrition, with prolonged mechanical ventilation. PLAN: 1. Repeat sputum cultures for surveillance given the grossly purulent nature of his endotracheal secretions. 2. Continue tube feeds as tolerated. 3. Free water bolus. 4. Continue antibiotics per Infectious Disease. 5. Consider tracheostomy following short course treatment for pulmonary emboli. Time spent in critical care management: 30+ minutes cc: Fer Leung MD [facility]
--- NOTE | 2018-10-24 15:20 | INFECTIOUS DISEASE PROGRESS NO ---
DATE: 10/24/2018 PRESENT ILLNESS: Mr. Almanza has been treated for a pneumococcal pneumonia with an associated bacteremia. He has been critically ill on the mechanical ventilator. At this point, he is being treated for a possible superinfection, after greater than two weeks of IV antibiotics. MEDICATIONS: Today is day 2 of treatment with IV vancomycin per pharmacy dosing, meropenem 2 g IV every 8 hours, and micafungin 100 mg IV daily. PHYSICAL EXAMINATION: Vital Signs: Temperature is 98.5 degrees, pulse rate 90, respiratory rate 20, blood pressure 124/69, O2 saturation is 100% on a 70% FiO2 on the mechanical ventilator. General: This is an acutely ill-appearing, middle-aged gentleman. He is lying in the bed awake and making eye contact. He is sedated on an Ativan drip and intermittently lethargic. HEENT: Atraumatic, normocephalic. Oral ET tube is in place as well as NG tube through which he is receiving tube feedings. Respiratory: Lung sounds have scattered wheezes and rhonchi bilaterally. Diminished breath sounds in the mid and bases. Cardiovascular: Heart rate and rhythm are regular. Normal sinus rhythm on the monitor. There is a pitting edema to the upper extremities, 2+ on the right, 1+ on the left. Abdomen: Soft, round, nontender. Bowel sounds are active. Neurologic: He will make eye contact but does not nod his head. He will squeeze my hand on the left side on command but not following any other requests at this time. No tremors are noted. LABORATORY AND X-RAY: Today, his white count is 9.61, hemoglobin 9.1, platelet count 447,000. On a 70% FiO2 on the mechanical ventilator, his pH is 7.48, pCO2 48, PO2 72, HCO3 33.4. Creatinine is 0.7, estimated GFR is greater than 60. Total bilirubin 0.26, direct bilirubin 0.10, AST 25, ALT 21, alkaline phosphatase 154. Originally his blood and sputum grew Streptococcus pneumoniae. The most recent blood and sputum cultures have been negative. Chest x-ray today shows diffuse interstitial opacity with dense alveolar opacification in the right lower lobe with pulmonary edema and/or pneumonia and ARDS. ASSESSMENT AND PLAN: Mr. Almanza is being treated for pneumonia/ARDS with a possible necrosis/phlegmon to the right lower lobe. After more than 2 weeks of IV antibiotics, there is concern for a possible superinfection. Today, his white count is back to normal on the current regimen that he has been on for the last 2 day. So for now, we will continue his meropenem, micafungin and vancomycin as ordered. These plans have been discussed with and recommended by Dr. Cruz. COMORBIDITIES: For Mr. Almanza include cigarette smoking, COPD, and alcohol abuse. Dictated by YING Vincent for Sergey Cruz MD cc: Sergey Cruz MD [facility]
[2018-10-24] MEDS: VANCOMYCIN 1,800 MG in NS 250 ML IV SCH (17:43)
--- NOTE | 2018-10-24 18:49 | Extremity Venous Study ---
PROCEDURE NAME: Venous U/S Bilateral Legs - 10/23/2018 LIQUID WASTE TREATMENT PLANT OPERATOR: Edwardo. REQUESTING PHYSICIANS: Rachael Quiñonez MD INDICATIONS: Patient on the ventilator. FINDINGS: Deep superficial veins in bilateral lower extremities were visualized along their course. All veins appeared compressible with forward flow and no evidence of intraluminal thrombus. There was moderate amount of edema noted in subcutaneous tissues. cc: MD Rachael Greenfield MD
[2018-10-24] MEDS: PROTONIX IV SCH (20:10)
[2018-10-25] MEDS: LASIX IV SCH ×4 (00:47→23:37)
[2018-10-25] MEDS: MERREM 2 GM in NS 100 ML IV SCH ×3 (00:56→17:46)
[2018-10-25] MEDS: ATIVAN 20 MG in NS 190 ML IV SCH ×8 (00:59→19:00)
[2018-10-25] MEDS: CARDIZEM NG SCH ×4 (01:00→20:24)
[2018-10-25] MEDS: REGLAN IV SCH ×4 (02:30→20:24)
[2018-10-25] MEDS: DUONEB (A & A) INH SCH ×6 (03:26→23:20)
[2018-10-25 04:20] LABS: ALLEN TEST YES; BE 13.2 mmoll (-3.0-3.0); BLOOD TYPE ARTERIAL; HCO3-(ACT) 35.1 mmoll (20.0-26.0); METHB 1.2 % (0.0-1.5); O2(CT) 15.8 mL/dL (15.0-23.0); O2HB 91.4 % (95.0-99.0); PCO2(98.6) 49 mmHg (35-45); PO2(98.6) 62 mmHg (60-100); SAMPLE BLOOD; SAO2 94.2 % (95.0-100.0); SRATE 15 BPM; THB 12.3 g/dL (11.5-17.4); TVOL 500 mL
[2018-10-25 04:21] LABS: MODALITY VENTILATOR
[2018-10-25 06:11] LABS: BASO% 1.1 % (0.0-0.8); EOS% 2.3 % (0.0-10.0); HEMATOCRIT 29.7 % (42.0-52.0); HEMOGLOBIN 9.6 g/dL (14.0-18.0); IMM GRAN# 0.15 X1000 (0.0-0.04); IMM GRAN% 1.7 % (0.0-0.5); LYMPH# 1.08 X1000 (1.2-3.4); LYMPH% 12.3 % (20.5-51.1); MCH 31.1 PG (27-31); MCHC 32.3 g/dL (33-37); MCV 96.1 FL (81-99); MONO# 0.83 X1000 (0.11-0.59); MONO% 9.4 % (1.7-9.3); MPV 9.9 FL (7.4-10.4); NEUT# 6.44 X1000 (1.4-6.5); NEUT% 73.2 % (42.2-75.2); PLT 523 X1000 (130-400); RBC 3.09 XMIL (4.7-6.1); RDW 15.9 % (11.5-14.5)
[2018-10-25 06:38] LABS: AGAP 13; BUN 19 mg/dL (8-22); CALCIUM 8.3 mg/dL (8.8-10.2); CHLORIDE 102 mmol/L (98-107); COSMO 295; CREATININE 0.6 mg/dL (0.7-1.2); ESTIMATED GFR > 60; GLUCOSE 106 mg/dL (70-104); MAGNESIUM 1.8 mg/dL (1.5-2.7); PHOSPHORUS 3.1 mg/dL (2.7-4.5); POTASSIUM 2.9 mmol/L (3.5-5.1); SODIUM 147 mmol/L (136-145); TCO2 32 mmol/L (25-35)
[2018-10-25] MEDS ORDERED: POTASSIUM CHLORIDE 60 MEQ in NS 500 ML IV ONE (06:47)
--- NOTE | 2018-10-25 06:53 | Diag Imaging Result Doc PS360 ---
EXAM: CHEST-PORTABLE HISTORY: dyspnea TECHNIQUE: Portable chest single view COMPARISON: 10/24/2018 FINDINGS: No change in the endotracheal tube, the nasogastric tube, or in the left-sided PICC line. The lungs are well expanded. No cardiomegaly. There are increased interstitial markings throughout both lungs in addition to small pleural effusions. The infiltrates/edema is less dense in the left lung that was previously. IMPRESSION: Slight interval improvement. Electronically signed by Gareth Garcia 10/25/2018 6:51 AM
[2018-10-25] MEDS: TRANSDERM-SCOP TD SCH (07:49)
[2018-10-25] MEDS: LOVENOX SUBQ SCH ×2 (07:59→20:25)
[2018-10-25] MEDS: LOPRESSOR PO SCH ×2 (07:59→20:25)
[2018-10-25] MEDS: COLACE PO SCH ×2 (07:59→20:24)
[2018-10-25] MEDS: MIRALAX NG SCH ×2 (07:59→20:25)
[2018-10-25] MEDS: VITAMIN B-1 PO SCH (08:00)
[2018-10-25] MEDS: MYCAMINE 100 MG in NS 100 ML IV SCH (09:10)
[2018-10-25] MEDS: VANCOMYCIN 1,800 MG in NS 250 ML IV SCH (10:38)
--- NOTE | 2018-10-25 12:53 | PROGRESS NOTE ---
DATE: 10/25/2018 SUBJECTIVE: The patient remains sedated on the ventilator. No acute events noted overnight. OBJECTIVE: Vital Signs: T-max 99.9 degrees, blood pressure 115/74, heart rate 88, respirations 19, O2 saturation 94% on the mechanical ventilator. General: This is a chronically ill-appearing male, currently sedated on the ventilator. Head: Normocephalic, atraumatic. Heart: S1, S2 normal. Regular rate and rhythm. Lungs: Equal air entry bilaterally. No wheezing. No rales. Abdomen: Positive bowel sounds. Soft, nontender, nondistended. Extremities: 2+ edema to the upper and lower extremities. Neurologic: The patient is currently sedated, but he will open his eyes and interact when his name is called. LABS: White blood cell count 8.8, hemoglobin 9.6, hematocrit 29, platelets 523. ABG: A pH of 7.50, pCO2 49, PO2 62, bicarbonate 35. Sodium 147, potassium 2.9, chloride 102, CO2 32, BUN 19, creatinine 0.6, glucose 106, magnesium 1.8, phosphorus 3.1. X-RAYS: Chest x-ray shows slight interval improvement. ASSESSMENT AND PLAN: 1. Acute hypoxemic and hypercapnic respiratory failure. Multifactorial. Continue with ventilatory support as directed by the fountain dispenser. 2. Acute respiratory distress syndrome. Continue with the current treatment regimen. 3. Necrotizing pneumonia. Continue with the current antifungals and antibiotics as directed by Dr. Cruz. 4. Acute pulmonary edema with volume overload. Slightly improved. Continue with diuretic therapy to try and achieve a negative fluid balance. 5. Hypernatremia. Unchanged. Continue with free water flush via the nasogastric tube. 6. Pulmonary hypertension. Aware. 7. Status post cardiac arrest. Aware. 8. Pulmonary embolism. Continue on full-dose Lovenox. 9. Chronic obstructive pulmonary disease exacerbation. Continue on intravenous steroids and bronchodilator therapy. 10. Anemia. Stable. 11. Hypokalemia. Will replace the patient's potassium. 12. Alcohol dependence. Aware. 13. Bacteremia secondary to Streptococcus. Resolved. The patient's blood cultures remain negative. 14. Gastrointestinal prophylaxis. Continue on Protonix. 15. Disposition: The patient remains critically ill with a high risk of mortality. cc: MD GRACIELA Ray
[2018-10-25] MEDS: D5W 1,000 ML IV SCH ×2 (13:00→21:40)
--- NOTE | 2018-10-25 13:47 | PULMONOLOGY PROGRESS NOTE ---
DATE: 10/25/2018 SUBJECTIVE: The patient is sedated. He appears to be comfortable. OBJECTIVE: Vital Signs: Maximum temperature in the last 24 hours was 99.9 degrees. Blood pressure is 115/74, heart rate 87, respiratory rate 23, and oxygen saturation 95% on mechanical ventilation. HEENT: Pupils are equal. Oropharynx appears clear. Neck: Supple. Respiratory: Chest reveals decreased breath sounds in the right base with crackles bilaterally. Cardiac: S1 and S2. Abdomen: The abdomen is soft with good bowel sounds. Extremities: The extremities are without significant edema. LABORATORY DATA: Chest x-ray reveals dense consolidation/effusion in the right lung with predominance in the right base. Decreased infiltrates or effusion on the left. White blood count is 8.8, hemoglobin 9.6, and platelet count 523,000. Sodium is 147, potassium 2.9, chloride 102, bicarbonate 32, BUN 19, and creatinine 0.6. Arterial blood gas on 45% FiO2 and a rate of 15 reveals a pH of 7.50, pCO2 of 49, and pO2 of 62. IMPRESSION: A 57-year-old with: 1. Pneumococcal pneumonia. 2. Dense consolidation of the right lower lobe. 3. Pulmonary emboli. 4. Acute hypoxemic respiratory failure. 5. Protein calorie malnutrition. 6. Hypernatremia. 7. Prolonged mechanical ventilation. RECOMMENDATIONS: 1. Await surveillance sputum cultures to see if additional antibiotic regimen is necessary. 2. Continue tube feeds as tolerated. 3. Continue free water bolus. 4. Continue antibiotics. 5. Consider tracheostomy early next week if he cannot be liberated from mechanical ventilation. Time spent in critical care management was 30+ minutes. cc: Fer Leung MD
[2018-10-25] MEDS ORDERED: POTASSIUM CHLORIDE 20% LIQUID NG ONE (15:50)
[2018-10-25] MEDS: PROTONIX IV SCH (20:24)
[2018-10-26] MEDS: CARDIZEM NG SCH ×4 (01:40→20:25)
[2018-10-26] MEDS: MERREM 2 GM in NS 100 ML IV SCH ×3 (01:40→18:36)
[2018-10-26] MEDS: REGLAN IV SCH ×4 (01:41→20:26)
[2018-10-26] MEDS: ATIVAN 20 MG in NS 190 ML IV SCH ×8 (01:51→23:23)
[2018-10-26] MEDS: DUONEB (A & A) INH SCH ×6 (03:24→23:33)
[2018-10-26] MEDS: VANCOMYCIN 1,800 MG in NS 250 ML IV SCH ×2 (04:00→23:22)
[2018-10-26] MEDS ORDERED: POTASSIUM CHLORIDE 20% LIQUID PO ONE ×2 (04:02→09:00)
[2018-10-26 04:45] LABS: ALLEN TEST YES; BE 14.4 mmoll (-3.0-3.0); BLOOD TYPE ARTERIAL; HCO3-(ACT) 36.1 mmoll (20.0-26.0); METHB 0.9 % (0.0-1.5); O2(CT) 13.1 mL/dL (15.0-23.0); O2HB 91.7 % (95.0-99.0); PO2(98.6) 60 mmHg (60-100); SAMPLE BLOOD; SAO2 94.3 % (95.0-100.0); SRATE 15 BPM; THB 10.1 g/dL (11.5-17.4); TVOL 500 mL; pH(98.6) 7.49 (7.35-7.45)
[2018-10-26 04:50] LABS: MODALITY VENTILATOR; PCO2(98.6) 52 mmHg (35-45)
[2018-10-26 04:57] LABS: BASO# 0.09 X1000 (0.0-0.2); BASO% 1.1 % (0.0-0.8); EOS# 0.18 X1000 (0.0-0.7); EOS% 2.1 % (0.0-10.0); HEMATOCRIT 29.1 % (42.0-52.0); HEMOGLOBIN 9.4 g/dL (14.0-18.0); IMM GRAN# 0.22 X1000 (0.0-0.04); IMM GRAN% 2.6 % (0.0-0.5); LYMPH# 1.29 X1000 (1.2-3.4); LYMPH% 15.1 % (20.5-51.1); MCH 30.8 PG (27-31); MCHC 32.3 g/dL (33-37); MCV 95.4 FL (81-99); MONO# 0.86 X1000 (0.11-0.59); MONO% 10.1 % (1.7-9.3); MPV 9.4 FL (7.4-10.4); NEUT# 5.88 X1000 (1.4-6.5); PLT 496 X1000 (130-400); RBC 3.05 XMIL (4.7-6.1); RDW 15.1 % (11.5-14.5); WBC 8.52 X1000 (4.8-10.8)
[2018-10-26 05:19] LABS: AGAP 9; BUN 19 mg/dL (8-22); CALCIUM 8.4 mg/dL (8.8-10.2); CHLORIDE 100 mmol/L (98-107); COSMO 288; CREATININE 0.5 mg/dL (0.7-1.2); ESTIMATED GFR > 60; GLUCOSE 110 mg/dL (70-104); MAGNESIUM 1.7 mg/dL (1.5-2.7); PHOSPHORUS 3.3 mg/dL (2.7-4.5); POTASSIUM 2.9 mmol/L (3.5-5.1); SODIUM 143 mmol/L (136-145); TCO2 34 mmol/L (25-35)
[2018-10-26] MEDS ORDERED: MAGNESIUM SULFATE 2 GM/S.W.I. 2 GM/50 ML IVPB IV ONE (06:14)
--- NOTE | 2018-10-26 08:04 | Diag Imaging Result Doc PS360 ---
EXAM: CHEST-PORTABLE INDICATION: dyspnea TECHNIQUE: One view COMPARISON: 10/25/2018 FINDINGS: Support tubes and lines are in stable positions. Interstitial and airspace consolidations, worse on the left, are stable. There are likely small effusions, especially on the right, that are also stable. No new consolidation is identified. Cardiac silhouette is stable. IMPRESSION: Stable chest. Electronically signed by Phill Burroughs 10/26/2018 8:02 AM
[2018-10-26] MEDS: COLACE PO SCH ×2 (09:20→20:25)
[2018-10-26] MEDS: MIRALAX NG SCH ×2 (09:21→20:26)
[2018-10-26] MEDS: LASIX IV SCH ×3 (09:21→23:21)
[2018-10-26] MEDS: VITAMIN B-1 PO SCH (09:21)
[2018-10-26] MEDS: LOVENOX SUBQ SCH ×2 (09:22→20:26)
[2018-10-26] MEDS: MYCAMINE 100 MG in NS 100 ML IV SCH (09:22)
[2018-10-26] MEDS: LOPRESSOR PO SCH ×2 (09:27→20:25)
--- NOTE | 2018-10-26 14:39 | PROGRESS NOTE ---
DATE: 10/26/2018 SUBJECTIVE: The patient is currently sedated on the ventilator. No acute events noted overnight. OBJECTIVE: Vital Signs: Temperature 98.6 degrees blood pressure 102/68, heart rate 82, respirations 18, O2 saturation is 94% on the mechanical. Intake: 7.2 L. Output: 6.2 L. General: This is a chronically ill-appearing elderly male, lying in bed, currently sedated on the ventilator. Head: Normocephalic, atraumatic. Heart: S1, S2 normal. Lungs: Equal air entry bilaterally. No wheezing. No rales. Abdomen: Positive bowel sounds. Soft, nontender, nondistended. Extremities: 3+ edema in the upper and lower extremities. Neurologic: The patient is currently sedated on the ventilator, but will awaken when his name is called. LABORATORIES: White blood cell count 8.5, hemoglobin 9.4, hematocrit 29, platelets 496,000. Sodium 143, potassium 3.3, chloride 100, CO2 of 34, BUN 19, creatinine 0.5, glucose 110. ABG: PH of 7.49, pCO2 of 52, PO2 of 62, bicarbonate 36. ASSESSMENT AND PLAN: 1. Acute hypoxemic and hypercapnic respiratory failure. Continue with ventilatory support as directed by the financial planning assistant. 2. Acute respiratory distress syndrome. Continue with the current treatment regimen. 3. Necrotizing pneumonia. Continue with the current antifungal and antibiotic therapy. 4. Acute pulmonary edema with volume overload. Continue with diuretic therapy. 5. Pulmonary hypertension. Aware. 6. Status post cardiac arrest. Aware. 7. Pulmonary embolism. Continue on full-dose Lovenox. 8. Chronic obstructive pulmonary disease exacerbation. Continue on IV steroids and bronchodilator therapy. 9. Anemia. Stable. 10. Hypokalemia. Continue to replace the patient's potassium. 11. Bacteremia secondary to Streptococcus. Resolved. 12. Alcohol dependence. Aware. 13. Gastrointestinal prophylaxis. Continue on Protonix. DISPOSITION: The patient remains critically ill with a high risk of mortality. The patient is currently a full code. cc: Rachael Quiñonez MD [facility]
[2018-10-26] MEDS ORDERED: POTASSIUM CHLORIDE 20% LIQUID NG ONE (14:44)
--- NOTE | 2018-10-26 15:31 | PULMONOLOGY PROGRESS NOTE ---
DATE: 10/26/2018 SUBJECTIVE: The patient is on mechanical ventilation. It is difficult to do a sedation vacation while on an Ativan drip. OBJECTIVE: Maximum temperature in the last 24 hours 99.9 degrees, BP 103/68, heart rate 82, respiratory rate 21, oxygen saturation 94%.HEENT: Pupils are equal and reactive. Oropharynx appears clear. Neck: Is supple. Chest: Reveals diminished breath sounds right base. Cardiac: S1, S2. Abdomen: Soft with good bowel sounds. Extremities: Reveal 1+ peripheral edema in the upper extremities and lower extremities. Muscle tone is flaccid. LABS: White blood count 8.52, hemoglobin 9.4, platelet count 496,000. Arterial blood gas reveals a pH 7.49, pCO2 of 52, PO2 of 60 with a normal lactate. White blood count 8.52, hemoglobin 9.4, platelet count 496,000. Chest x-ray reveals no change. IMPRESSION: A 57-year-old with 1. Pneumococcal pneumonia. 2. Dense consolidation of the right lower lobe with possible area of necrosis. 3. Pulmonary emboli. 4. Acute hypoxemic respiratory failure. 5. Protein calorie malnutrition. 6. Prolonged mechanical ventilation. RECOMMENDATIONS: 1. Continue current antibiotic regimen. No new culture data available. 2. Continue tube feeds as tolerated. 3. Periodic free water bolus pending increase in sodium. 4. Continue current antibiotic regimen. 5. Anticipate tracheostomy if he does not continue to improve. Time spent in critical care management: 30+ minutes cc: Fer Leung MD [facility]
--- NOTE | 2018-10-26 15:45 | INFECTIOUS DISEASE PROGRESS NO ---
DATE: 10/26/2018 PRESENT ILLNESS: Initially patient was treated for pneumococcal pneumonia with bacteremia. That appears to have cleared. Unfortunately, the patient continues to have a left lung consolidation with small bilateral pleural effusions. Patient also has an immunoglobulin deficiency. MEDICATIONS: This is the 4th day of treatment with the combination of meropenem, micafungin and vancomycin. PHYSICAL EXAMINATION: Vital Signs: Temperature is 98.8 degrees, pulse 85, respirations 20, blood pressure 103/66. General: This is an ill-appearing, middle-aged male. He is intubated and sedated. Head, eyes, ears, nose and throat: Orotracheal tube is in place. There is no drainage from the nose or ears. Neck: No stiffness. Lungs: Bilateral rhonchi. Cardiovascular: Heart rate is regular. Abdomen: Soft. It did not appear to be tender. Neurologic: The patient is obtunded. He did not respond to verbal stimuli. There is no tremor. Extremities: Patient has a PICC in the left arm. The site is not erythematous or purulent. LAB AND X-RAY: The CBC shows a white count of 8520, hemoglobin 9.4, and platelet count of 496,000. Blood gases show a pH of 7.49, a PO2 of 16, a pCO2 of 52. Creatinine 0.5, GFR is greater than 60. Repeat blood and sputum cultures are negative. Chest x-ray shows stable left lung consolidation and bilateral small pleural effusions. ASSESSMENT AND PLAN: The patient has pneumonia with now right lung consolidation. The patient also had bacteremia. The patient has an immunoglobulin deficiency, however that has been cleared with an infusion of intravenous immunoglobulin during this admission. My plan is to continue the current antibiotics, namely meropenem, micafungin and vancomycin. COMORBIDITIES: Include cigarette smoking, COPD, alcohol abuse, and immunoglobulin deficiency. Sergey Cruz same-day. cc: Sergey Cruz MD
[2018-10-26] MEDS: PROTONIX IV SCH (20:26)
[2018-10-27] MEDS: MERREM 2 GM in NS 100 ML IV SCH ×3 (02:34→17:44)
[2018-10-27] MEDS: ATIVAN 20 MG in NS 190 ML IV SCH ×3 (02:34→08:40)
[2018-10-27] MEDS: CARDIZEM NG SCH ×4 (02:34→20:30)
[2018-10-27] MEDS: REGLAN IV SCH ×4 (03:03→20:28)
[2018-10-27] MEDS: DUONEB (A & A) INH SCH ×6 (03:09→23:43)
[2018-10-27 04:59] LABS: ALLEN TEST YES; BE 17.6 mmoll (-3.0-3.0); BLOOD TYPE ARTERIAL; HCO3-(ACT) 38.6 mmoll (20.0-26.0); METHB 0.2 % (0.0-1.5); O2(CT) 12.1 mL/dL (15.0-23.0); O2HB 94.1 % (95.0-99.0); PO2(98.6) 65 mmHg (60-100); SAMPLE BLOOD; SAO2 96.9 % (95.0-100.0); SRATE 15 BPM; THB 9.1 g/dL (11.5-17.4); TVOL 500 mL
[2018-10-27 05:01] LABS: MODALITY VENTILATOR; PCO2(98.6) 55 mmHg (35-45)
[2018-10-27 06:08] LABS: BASO# 0.11 X1000 (0.0-0.2); EOS# 0.23 X1000 (0.0-0.7); EOS% 2.2 % (0.0-10.0); HEMATOCRIT 28.4 % (42.0-52.0); IMM GRAN% 3.8 % (0.0-0.5); LYMPH# 1.35 X1000 (1.2-3.4); LYMPH% 12.8 % (20.5-51.1); MCH 30.5 PG (27-31); MCHC 31.7 g/dL (33-37); MCV 96.3 FL (81-99); MONO% 9.5 % (1.7-9.3); MPV 9.3 FL (7.4-10.4); NEUT# 7.45 X1000 (1.4-6.5); NEUT% 70.7 % (42.2-75.2); PLT 507 X1000 (130-400); RBC 2.95 XMIL (4.7-6.1); RDW 15.2 % (11.5-14.5); WBC 10.54 X1000 (4.8-10.8)
[2018-10-27 06:48] LABS: AGAP 10; ALB/GLOB RATIO 0.7; ALBUMIN 2.6 g/dL (3.5-5.0); ALKALINE PHOSPHATASE 238 U/L (32-122); BUN 17 mg/dL (8-22); CALCIUM 8.8 mg/dL (8.8-10.2); CHLORIDE 96 mmol/L (98-107); COSMO 283; CREATININE 0.5 mg/dL (0.7-1.2); ESTIMATED GFR > 60; GLUCOSE 109 mg/dL (70-104); GOT 38 U/L (10-34); GPT 33 U/L (10-44); POTASSIUM 3.2 mmol/L (3.5-5.1); SODIUM 141 mmol/L (136-145); TCO2 35 mmol/L (25-35); TOTAL PROTEIN 6.1 g/dL (6.3-8.3)
[2018-10-27] MEDS ORDERED: POTASSIUM CHLORIDE 20% LIQUID NG ONE (07:15)
--- NOTE | 2018-10-27 07:23 | Diag Imaging Result Doc PS360 ---
EXAM: CHEST-PORTABLE INDICATION: dyspnea TECHNIQUE: One view COMPARISON: 10/26/2018 FINDINGS: Support tubes and lines are in stable positions. Dense interstitial and airspace consolidations most compatible with severe pulmonary edema are approximately stable given differences in positioning. No new consolidation is identified. Cardiac silhouette is stable. IMPRESSION: Essentially stable chest. Electronically signed by Phill Burroughs 10/27/2018 7:20 AM
[2018-10-27 07:34] LABS: EOS 2 % (1-10); LYMPHS 8 % (21-51); MONO 6 % (1-9); SEGS 76 % (42-75)
[2018-10-27 07:52] LABS: MAGNESIUM 1.9 mg/dL (1.5-2.7); PHOSPHORUS 3.4 mg/dL (2.7-4.5)
[2018-10-27] MEDS: LASIX IV SCH ×3 (08:23→23:53)
[2018-10-27] MEDS: COLACE PO SCH ×2 (08:23→20:30)
[2018-10-27] MEDS: MIRALAX NG SCH ×2 (08:23→21:00)
[2018-10-27] MEDS: LOPRESSOR PO SCH ×2 (08:23→20:30)
[2018-10-27] MEDS: LOVENOX SUBQ SCH ×2 (08:23→20:29)
[2018-10-27] MEDS: VITAMIN B-1 PO SCH (08:24)
[2018-10-27] MEDS: MYCAMINE 100 MG in NS 100 ML IV SCH (09:09)
--- NOTE | 2018-10-27 10:14 | INFECTIOUS DISEASE PROGRESS NO ---
DATE: 10/27/2018 PRESENT ILLNESS: The patient initially had a pneumococcal pneumonia with bacteremia which appeared to have gotten better, but unfortunately now the patient has left lung consolidation with bilateral pleural effusions. The patient also has an immunoglobulin deficiency but received IVIG. MEDICATIONS: This is the 5th day of treatment with the combination of meropenem, micafungin and vancomycin. As mentioned above, the patient has received IVIG and his IgG level is in a normal range now. PHYSICAL EXAMINATION: Vital Signs: Temperature is 99.8 degrees, pulse 86, respirations 23, blood pressure 104/70. General: This is an ill-appearing, middle-aged male. He is intubated and sedated. Head, eyes, ears, nose, and throat: The patient has an orotracheal tube in place. He did open his eyes to request. The patient was able to hear my spoken words but I could not see how good his sight was. The patient has an orotracheal tube in place. Neck: There is no meningismus. Lungs: There were bilateral rhonchi. Cardiovascular: Heart rate is regular. Abdomen: Soft and nontender. Neurologic: Today the patient is somewhat lethargic but he did follow requests to move his arms and legs and also to open his eyelids. There is no tremor. Extremities: The patient has a PICC in his left arm. LAB AND X-RAY: Chest x-ray shows stable dense consolidation. [place] [address], hemoglobin 9 and platelet count 507,000. Blood gases show a pH of 7.5, a PO2 of 65, and a pCO2 of 55. Creatinine is 0.5, GFR is greater than 60. ASSESSMENT AND PLAN: Patient has consolidated lung and I am uncertain as to exactly if there is a new infection or the continuation of the pneumococcal infection which I would doubt. The patient has an immunoglobulin deficiency which has been treated with IVIG. My plan now as far as the patient's antibiotics are is to continue meropenem, micafungin and vancomycin. COMORBIDITIES: Cigarette smoking, COPD, alcohol abuse, and immunoglobulin deficiency. cc: Sergey Cruz MD
[2018-10-27 10:59] LABS: ALLEN TEST YES; BE 15.1 mmoll (-3.0-3.0); BLOOD TYPE ARTERIAL; HCO3-(ACT) 36.7 mmoll (20.0-26.0); PO2(98.6) 78 mmHg (60-100); SAMPLE BLOOD; pH(98.6) 7.47 (7.35-7.45)
[2018-10-27 11:01] LABS: MODALITY VENTILATOR; PCO2(98.6) 57 mmHg (35-45)
[2018-10-27] MEDS ORDERED: ROMAZICON IV ONE (11:09)
--- NOTE | 2018-10-27 15:04 | PROGRESS NOTE ---
DATE: 10/27/2018 SUBJECTIVE: The patient is currently on the ventilator, on an Ativan drip. He does awaken and can follow commands. OBJECTIVE: Vital Signs: Temperature 98.6 degrees, blood pressure 119/72, heart rate 82, respirations 30, O2 saturation is 98% on the mechanical ventilator. Intake 4.2 L. Output 5.8 L. General: This is a chronically ill-appearing, elderly male currently on the ventilator. Head: Normocephalic, atraumatic. Heart: S1, S2 normal. Regular rate and rhythm. Lungs: Equal air entry bilaterally. No wheezing. No rales. Abdomen: Positive bowel sounds. Soft, nontender, nondistended. Extremities: There is 2+ edema in the upper and lower extremities. Neurologic: The patient is awake and will follow commands. He is able to move all 4 extremities. LABS: White blood cell count 10, hemoglobin 9, hematocrit 28, platelets 507,000. Sodium 141, potassium 3.2, chloride 96, CO2 35, BUN 17, creatinine 0.5, glucose 109, AST 38, ALT 33, alkaline phosphatase 238, albumin 2.6. Chest x-ray shows severe pulmonary edema. ASSESSMENT AND PLAN: 1. Acute hypoxemic and hypercapnic respiratory failure. Continue with ventilatory support as directed by the tile designer. Weaning trials are underway. 2. Necrotizing pneumonia. Continue with the current antifungal and antibiotic therapy. 3. Acute respiratory distress syndrome. Continue with ventilatory support. 4. Pulmonary hypertension. Aware. 5. Acute pulmonary edema with volume overload. Continue with diuretic therapy. 6. Status post cardiac arrest. Aware. 7. Pulmonary embolism. Continue on full-dose Lovenox. 8. Chronic obstructive pulmonary disease exacerbation. Continue with bronchodilator therapy. 9. Anemia. Stable. 10. Hypokalemia. Continue on the potassium replacement protocol. 11. Bacteremia secondary to Streptococcus. Resolved. 12. Alcohol dependence. Aware. 13. Gastrointestinal prophylaxis. Continue on IV Protonix. 14. Disposition. The patient remains critically ill with a high risk of mortality. cc: Rachael Quiñonez MD
[2018-10-27] MEDS: VANCOMYCIN 1,800 MG in NS 250 ML IV SCH (16:55)
[2018-10-27] MEDS: PROTONIX IV SCH (20:29)
[2018-10-27] MEDS: SODIUM CHLORIDE 0.9% INJ SCH (20:29)
[2018-10-28] MEDS: MERREM 2 GM in NS 100 ML IV SCH ×3 (02:01→17:52)
[2018-10-28] MEDS: REGLAN IV SCH ×4 (02:02→21:32)
[2018-10-28] MEDS: CARDIZEM NG SCH ×4 (02:02→21:32)
[2018-10-28] MEDS: DUONEB (A & A) INH SCH ×6 (04:12→23:15)
[2018-10-28 04:39] LABS: ALLEN TEST YES; BE 21.6 mmoll (-3.0-3.0); BLOOD TYPE ARTERIAL; HCO3-(ACT) 41.8 mmoll (20.0-26.0); METHB 1.8 % (0.0-1.5); O2(CT) 7.9 mL/dL (15.0-23.0); O2HB 92.6 % (95.0-99.0); PO2(98.6) 63 mmHg (60-100); SAMPLE BLOOD; SAO2 96.1 % (95.0-100.0)
[2018-10-28 04:40] LABS: MODALITY BI PAP; PCO2(98.6) 60 mmHg (35-45)
[2018-10-28 05:16] LABS: BASO# 0.13 X1000 (0.0-0.2); BASO% 1.1 % (0.0-0.8); EOS# 0.21 X1000 (0.0-0.7); EOS% 1.8 % (0.0-10.0); HEMATOCRIT 31.4 % (42.0-52.0); IMM GRAN# 0.31 X1000 (0.0-0.04); IMM GRAN% 2.7 % (0.0-0.5); LYMPH# 1.04 X1000 (1.2-3.4); LYMPH% 8.9 % (20.5-51.1); MCHC 31.8 g/dL (33-37); MCV 97.2 FL (81-99); MONO# 0.96 X1000 (0.11-0.59); MONO% 8.2 % (1.7-9.3); MPV 8.9 FL (7.4-10.4); NEUT% 77.3 % (42.2-75.2); PLT 555 X1000 (130-400); RBC 3.23 XMIL (4.7-6.1); RDW 14.9 % (11.5-14.5); WBC 11.65 X1000 (4.8-10.8)
[2018-10-28 05:50] LABS: AGAP 12; ALB/GLOB RATIO 0.7; ALBUMIN 2.7 g/dL (3.5-5.0); ALKALINE PHOSPHATASE 237 U/L (32-122); BUN 16 mg/dL (8-22); CALCIUM 9.1 mg/dL (8.8-10.2); CHLORIDE 94 mmol/L (98-107); COSMO 290; CREATININE 0.4 mg/dL (0.7-1.2); ESTIMATED GFR > 60; GLUCOSE 100 mg/dL (70-104); GOT 26 U/L (10-34); GPT 29 U/L (10-44); POTASSIUM 3.2 mmol/L (3.5-5.1); SODIUM 145 mmol/L (136-145); TCO2 39 mmol/L (25-35); TOTAL BILIRUBIN 0.25 mg/dL (0.20-1.00); TOTAL PROTEIN 6.4 g/dL (6.3-8.3)
[2018-10-28] MEDS ORDERED: POTASSIUM CHLORIDE 20% LIQUID PO ONE (06:12)
[2018-10-28] MEDS: TRANSDERM-SCOP TD SCH (06:24)
--- NOTE | 2018-10-28 06:55 | Diag Imaging Result Doc PS360 ---
EXAM: CHEST-PORTABLE HISTORY: dyspnea TECHNIQUE: Portable chest single view COMPARISON: 10/27/2018 FINDINGS: The endotracheal tube is been removed. No change in the nasogastric tube or left-sided PICC line. The bilateral infiltrates with atelectasis as well as pulmonary edema. The small pleural effusions. No cardiomegaly. IMPRESSION: No interval improvement. Electronically signed by Gareth Garcia 10/28/2018 6:53 AM
[2018-10-28] MEDS: LASIX IV SCH ×2 (08:13→15:03)
[2018-10-28] MEDS: COLACE PO SCH ×2 (08:13→21:31)
[2018-10-28] MEDS: LOPRESSOR PO SCH ×2 (08:14→21:32)
[2018-10-28] MEDS: LOVENOX SUBQ SCH ×2 (08:14→21:33)
[2018-10-28] MEDS: MIRALAX NG SCH ×2 (08:14→21:32)
[2018-10-28] MEDS: VITAMIN B-1 PO SCH (08:14)
[2018-10-28] MEDS: MYCOSTATIN SUSP PO SCH ×3 (09:15→21:31)
[2018-10-28] MEDS: VANCOMYCIN 1,800 MG in NS 250 ML IV SCH (10:11)
--- NOTE | 2018-10-28 11:33 | INFECTIOUS DISEASE PROGRESS NO ---
DATE: 10/28/2018 PRESENT ILLNESS: The patient has a persistent pulmonary infiltrate. Initially, he had pneumococcal pneumonia with bacteremia. The patient also has an immunoglobulin deficiency and today I noticed that he has oral candidiasis. MEDICATIONS: This is the 6th day of treatment with meropenem, micafungin and vancomycin. The patient already has received IVIG for his immunoglobulin deficiency. PHYSICAL EXAMINATION: Vital Signs: Temperature is 97.2 degrees, pulse 88, respirations 19, blood pressure 128/80. General: This is an ill-appearing, middle-aged male. He is on a BiPAP mask today and he seems more alert. He opens his eyes HEENT: There is no drainage coming from his nose or ears. I am able to see his tongue and it does have a white coating. Neck: The patient does not have any pain when he moves his neck. Lungs: There were bilateral rhonchi. Cardiovascular: Heart rate is regular. Abdomen: Soft and not tender. Extremities: Patient has a PICC in his left arm. The site is not erythematous or purulent. Neurologic: As mentioned above, patient is more awake today. He did follow request to move extremities. He does not have a tremor. Integument: No rash noted. LAB AND X-RAY: Chest x-ray shows no improvement. The creatinine is 0.4, GFR is greater than 60. Alkaline phosphatase is 237. [place] [address], hemoglobin 10, platelet count 555,000. Patient's blood gases show a pH of 7.5, a PO2 of 63, and a pCO2 of 60. ASSESSMENT AND PLAN: The patient has a consolidated lung. I plan to continue meropenem and vancomycin but I have discontinued micafungin. I have requested that the patient have his mouth painted with nystatin suspension every 6 hours. It does not appear that the patient will be able to swish and swallow the Mycostatin himself and therefore, that is why I ordered his mouth to be painted with a swab that has nystatin on it. COMORBIDITIES: Cigarette smoking, COPD, alcohol abuse, and immunoglobulin deficiency. cc: Sergey Cruz MD
--- NOTE | 2018-10-28 17:03 | PROGRESS NOTE ---
DATE: 10/28/2018 SUBJECTIVE: Patient has been extubated and currently on a BiPAP. OBJECTIVE: Vital signs: Temperature 97.5 degrees, pulse 78, respiratory 22, blood pressure 134/82, oxygen saturation 97%. HEENT: Atraumatic, normocephalic. Cardiovascular: S1, S2. Respiratory: Has evidence of good air entry bilaterally. Abdomen: Soft, nontender, no masses felt. Extremities: No evidence of edema. Central nervous system: No obvious focal deficit noted. LABS: WBC is 11.65, hematocrit is 31.4 with a platelet count of 555,000. ABG 7.5/60/63/96.1 percent, chemistry sodium is 145, potassium 3.6, chloride 94, bicarb 29, creatinine 2.4. X-ray of chest shows bilateral infiltrates with atelectasis as well as pulmonary edema. ASSESSMENT AND PLAN: 1. Acute hypercapnic respiratory failure. Maintain patient on BiPAP, pulmonary team following. 2. Necrotizing pneumonia, continue antibiotics as well as antifungal agent. 3. Acute pulmonary edema, continue diuretics, monitor I's and O's as well as daily weights. 4. Status post cardiac arrest. Aware. 5. Pulmonary embolism. Continue Lovenox. 6. Chronic obstructive pulmonary disease, maintain patient on nebulized bronchodilators. 7. Anemia, follow up on hemoglobin, hematocrit, transfuse PRBC as needed. 8. Bacteremia secondary to strep resolved. 9. Alcohol dependence aware. 10. Gastrointestinal prophylaxis PPI. 11. Deep vein thrombosis prophylaxis. Patient is on Lovenox. In summary patient is still critically ill. Though he has been extubated is currently on BiPAP with a possibility that patient might end up being reintubated. Will keep patient in the ICU. Maintain him on Bipap, continues antibiotics, diuretics and anticoagulation. cc: Gopal Garces MD [facility]
[2018-10-28 18:47] LABS: ALLEN TEST YES; BE 22.2 mmoll (-3.0-3.0); BLOOD TYPE ARTERIAL; HCO3-(ACT) 42.2 mmoll (20.0-26.0); METHB 1.3 % (0.0-1.5); O2(CT) 14.9 mL/dL (15.0-23.0); O2HB 95.1 % (95.0-99.0); PO2(98.6) 84 mmHg (60-100); SAMPLE BLOOD; SAO2 98.2 % (95.0-100.0); THB 11.1 g/dL (11.5-17.4); pH(98.6) 7.42 (7.35-7.45)
[2018-10-28 18:48] LABS: MODALITY BI PAP; PCO2(98.6) 78 mmHg (35-45)
[2018-10-28] MEDS: PROTONIX IV SCH (21:32)
[2018-10-29] MEDS: LASIX IV SCH ×3 (01:46→21:32)
[2018-10-29] MEDS: REGLAN IV SCH ×4 (01:46→21:32)
[2018-10-29] MEDS: CARDIZEM NG SCH ×4 (01:46→21:31)
[2018-10-29] MEDS: MYCOSTATIN SUSP PO SCH ×4 (02:01→21:32)
[2018-10-29] MEDS: MERREM 2 GM in NS 100 ML IV SCH ×3 (02:01→16:48)
[2018-10-29] MEDS: DUONEB (A & A) INH SCH ×6 (03:06→22:58)
[2018-10-29 04:41] LABS: ALLEN TEST YES; BE 24.3 mmoll (-3.0-3.0); BLOOD TYPE ARTERIAL; HCO3-(ACT) 43.9 mmoll (20.0-26.0); METHB 0.9 % (0.0-1.5); O2(CT) 15.1 mL/dL (15.0-23.0); O2HB 98.1 % (95.0-99.0); PO2(98.6) 250 mmHg (60-100); SAMPLE BLOOD; SAO2 100.3 % (95.0-100.0); THB 10.5 g/dL (11.5-17.4); pH(98.6) 7.36 (7.35-7.45)
[2018-10-29 04:42] LABS: MODALITY BI PAP; PCO2(98.6) 96 mmHg (35-45)
[2018-10-29] MEDS: VANCOMYCIN 1,800 MG in NS 250 ML IV SCH ×2 (05:04→23:45)
[2018-10-29 05:42] LABS: BASO# 0.13 X1000 (0.0-0.2); BASO% 1.2 % (0.0-0.8); EOS# 0.16 X1000 (0.0-0.7); EOS% 1.4 % (0.0-10.0); HEMATOCRIT 32.6 % (42.0-52.0); HEMOGLOBIN 10.2 g/dL (14.0-18.0); IMM GRAN# 0.32 X1000 (0.0-0.04); IMM GRAN% 2.8 % (0.0-0.5); LYMPH# 1.48 X1000 (1.2-3.4); LYMPH% 13.1 % (20.5-51.1); MCH 31.3 PG (27-31); MCHC 31.3 g/dL (33-37); MONO# 1.15 X1000 (0.11-0.59); MONO% 10.2 % (1.7-9.3); MPV 8.8 FL (7.4-10.4); NEUT# 8.04 X1000 (1.4-6.5); NEUT% 71.3 % (42.2-75.2); PLT 578 X1000 (130-400); RBC 3.26 XMIL (4.7-6.1); RDW 14.8 % (11.5-14.5); WBC 11.28 X1000 (4.8-10.8)
[2018-10-29 06:05] LABS: ESTIMATED GFR > 60
[2018-10-29 06:08] LABS: AGAP 9; ALB/GLOB RATIO 0.8; ALBUMIN 2.9 g/dL (3.5-5.0); ALKALINE PHOSPHATASE 200 U/L (32-122); BUN 19 mg/dL (8-22); CALCIUM 9.2 mg/dL (8.8-10.2); CHLORIDE 87 mmol/L (98-107); COSMO 280; CREATININE 0.4 mg/dL (0.7-1.2); GLUCOSE 97 mg/dL (70-104); GOT 19 U/L (10-34); GPT 23 U/L (10-44); POTASSIUM 3.3 mmol/L (3.5-5.1); SODIUM 139 mmol/L (136-145); TCO2 43 mmol/L (25-35); TOTAL BILIRUBIN 0.22 mg/dL (0.20-1.00); TOTAL PROTEIN 6.5 g/dL (6.3-8.3)
[2018-10-29] MEDS ORDERED: POTASSIUM CHLORIDE 20% LIQUID PO ONE (07:00)
[2018-10-29] MEDS: VITAMIN B-1 PO SCH (08:04)
[2018-10-29] MEDS: LOVENOX SUBQ SCH ×2 (08:04→21:31)
[2018-10-29] MEDS: LOPRESSOR PO SCH ×2 (08:04→21:31)
[2018-10-29] MEDS: COLACE PO SCH ×2 (08:05→21:31)
[2018-10-29] MEDS: MIRALAX NG SCH ×2 (08:11→21:31)
[2018-10-29 09:50] LABS: ALLEN TEST YES; BE 25.7 mmoll (-3.0-3.0); BLOOD TYPE ARTERIAL; O2(CT) 13.8 mL/dL (15.0-23.0); O2HB 97.4 % (95.0-99.0); PO2(98.6) 83 mmHg (60-100); SAMPLE BLOOD; pH(98.6) 7.47 (7.35-7.45)
[2018-10-29 09:53] LABS: MODALITY COOL AEROSOL; PCO2(98.6) 73 mmHg (35-45)
--- NOTE | 2018-10-29 10:09 | INFECTIOUS DISEASE PROGRESS NO ---
DATE: 10/29/2018 PRESENT ILLNESS: Mr. Almanza has persistent pneumonia with a mild leukocytosis. He has been previously treated for pneumococcal pneumonia with bacteremia. At this point, he is off the mechanical ventilator with severe deconditioning. 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 MEDICATIONS: Today is day 7 of IV vancomycin per pharmacy dosing and meropenem 2 g IV every 8 hours. He is also receiving nystatin oral swab every 6 hours. He has had a dose of IVIG since admission. PHYSICAL EXAMINATION: Vital Signs: Temperature is 97.4 degrees, pulse rate 87, respiratory rate 18, blood pressure 125/74. O2 saturation is 94% on a 60% cool air soft face mask. General: This is a chronically ill-appearing, middle-aged gentleman. He is lying in the bed, lethargic but arousable. HEENT: Atraumatic, normocephalic. Oral mucous membranes are difficult to visualize. Conjunctivae are pale. Neck: Supple. Trachea is midline. Cardiovascular: Heart rate and rhythm are regular. Normal sinus rhythm on the monitor. Respiratory: Lung sounds have coarse rhonchi throughout. Abdomen: Soft, round, nontender. Bowel sounds are active. There is a NG tube in place which is currently clamped. Neurologic: He is very lethargic, but did arouse to sternal rub. He did not open his eyes or follow commands. I noticed him moving his head side to side but not his extremities. LABORATORY AND X-RAY: Today his white count is 11.28 hemoglobin 10.2, platelet count 578,000. On 100% BiPAP this morning his pH was 7.36, pCO2 96, PO2 250, HC03 43.9. Creatinine is 0.4 estimated GFR is greater than 60. Total bilirubin is 0.22, AST 19 ALT 23, alkaline phos 200. On admission to the hospital he grew Streptococcus pneumoniae in his sputum and blood. Since then, subsequent blood and sputum specimens have shown no growth. No imaging reports today. ASSESSMENT AND PLAN: Mr Almanza is being treated for persistent pulmonary infiltrate using meropenem and vancomycin. Today is day 7. For now, we will continue medications as ordered. He also has oral candidiasis and we will continue nystatin swabs in his mouth every 6 hours. Also he does have an immunoglobulin deficiency and has already received IVIG. We will continue to follow that as well. These plans have been discussed with and recommended by Dr. Cruz. COMORBIDITIES: For Mr. Almanza include cigarette smoking, alcohol abuse, severe deconditioning, and protein calorie malnutrition. Dictated by YING Vincent for Sergey Cruz MD cc: Sergey Cruz MD [facility]
--- NOTE | 2018-10-29 10:30 | Diag Imaging Result Doc PS360 ---
EXAM: CHEST-1 VIEW HISTORY: SOB TECHNIQUE: Single view COMPARISON: 10-28-18 FINDINGS: The lungs are well expanded. The heart is not enlarged. The vessels are not distended. There are bilateral infiltrates. Small bilateral effusions. No change in the NG tube or left PICC line. IMPRESSION: No interval improvements. Electronically signed by Gareth Garcia 10/29/2018 10:27 AM
[2018-10-29] MEDS ORDERED: POTASSIUM CHLORIDE 40 MEQ/SWI 40 MEQ/100 ML IVPB IV ONE (15:19)
--- NOTE | 2018-10-29 15:42 | PROGRESS NOTE ---
DATE: 10/29/2018 SUBJECTIVE: The patient resting in bed. He has a Ventimask in place. Not in any obvious distress. OBJECTIVE: Vital signs: Temperature 100.5 degrees, pulse 88, respiratory rate 18, blood pressure is 103/60, and oxygen saturation is 91%. HEENT: Atraumatic, normocephalic. Cardiovascular: S1, S2. Respiratory: There is evidence of good air entry bilaterally. Abdomen: Soft, nontender. No masses felt. Extremities: No evidence of edema. Central nervous system: No obvious focal deficit noted. LABORATORY: WBC is 7.28, hematocrit 32.6 with a platelet count of 578,000. ABG 7.47/73/83/101. Chemistry: Sodium is 139, potassium 3.5, chloride is 87, bicarb is 23, BUN is 19, and creatinine 0.4. X-ray of chest shows bilateral infiltrates. ASSESSMENT AND PLAN: 1. Acute hypercapnic respiratory failure. The patient is currently on Ventimask and he has been weaned off BiPAP. We will continue to follow up on patient's respiratory status. 2. Necrotizing pneumonia. Continue antibiotics as well as antifungal agent. 3. Acute pulmonary edema. Continue diuretics. Monitor intakes and output as well as daily weights. 4. Status post cardiac arrest. Aware. 5. Pulmonary embolism. Continue Lovenox. 6. Chronic obstructive pulmonary disease. Maintain patient on nebulized bronchodilators. 7. Anemia. Follow up on hemoglobin and hematocrit. Transfuse PRBC's as needed. 8. Bacteremia. Resolved. 9. Alcohol dependence. Aware. 10. Gastrointestinal prophylaxis. Proton pump inhibitor. 11. Deep vein thrombosis prophylaxis. The patient is on Lovenox. 12. In general, the patient seemed to have improved. He has been weaned off BiPAP and is currently on a Ventimask. We will continue to follow up on his respiratory status. We will still keep patient in the ICU. We will continue antibiotics and diuretics as well as anticoagulation. cc: MD GRACIELA Franklin
[2018-10-29] MEDS: PROTONIX IV SCH (21:32)
[2018-10-30] MEDS: MERREM 2 GM in NS 100 ML IV SCH ×3 (01:49→16:52)
[2018-10-30] MEDS: DUONEB (A & A) INH SCH ×6 (03:39→23:17)
[2018-10-30] MEDS: REGLAN IV SCH ×2 (04:10→08:17)
[2018-10-30] MEDS: CARDIZEM NG SCH ×2 (04:10→08:18)
[2018-10-30] MEDS: MYCOSTATIN SUSP PO SCH ×4 (04:10→20:27)
[2018-10-30 05:04] LABS: ALLEN TEST YES; BE 27.6 mmoll (-3.0-3.0); BLOOD TYPE ARTERIAL; HCO3-(ACT) 46.4 mmoll (20.0-26.0); METHB 1.5 % (0.0-1.5); O2(CT) 13.3 mL/dL (15.0-23.0); O2HB 94.7 % (95.0-99.0); PO2(98.6) 78 mmHg (60-100); SAMPLE BLOOD; SAO2 97.9 % (95.0-100.0); THB 9.9 g/dL (11.5-17.4)
[2018-10-30 05:11] LABS: MODALITY COOL AEROSOL; PCO2(98.6) 58 mmHg (35-45); pH(98.6) 7.57 (7.35-7.45)
[2018-10-30 05:27] LABS: ESTIMATED GFR > 60
[2018-10-30 05:34] LABS: AGAP 7; ALB/GLOB RATIO 0.8; ALBUMIN 2.8 g/dL (3.5-5.0); ALKALINE PHOSPHATASE 163 U/L (32-122); BUN 18 mg/dL (8-22); CALCIUM 9.1 mg/dL (8.8-10.2); CHLORIDE 92 mmol/L (98-107); COSMO 290; CREATININE 0.4 mg/dL (0.7-1.2); GLUCOSE 128 mg/dL (70-104); GOT 25 U/L (10-34); GPT 22 U/L (10-44); POTASSIUM 3.3 mmol/L (3.5-5.1); SODIUM 144 mmol/L (136-145); TCO2 45 mmol/L (25-35); TOTAL BILIRUBIN 0.16 mg/dL (0.20-1.00); TOTAL PROTEIN 6.4 g/dL (6.3-8.3)
[2018-10-30] MEDS ORDERED: POTASSIUM CHLORIDE 20% LIQUID NG ONE (07:27)
--- NOTE | 2018-10-30 07:45 | Diag Imaging Result Doc PS360 ---
EXAM: CHEST-1 VIEW HISTORY: SOB TECHNIQUE: Portable chest single view COMPARISON: 10/29/2018 FINDINGS: No change in the nasogastric tube or left sided PICC line. There is a moderate-sized right pleural effusion with a small left pleural effusion. There are bibasilar infiltrates and atelectasis. No cardiomegaly. The overall appearance is similar to the prior exam. IMPRESSION: Stable chest. Electronically signed by Gareth Garcia 10/30/2018 7:43 AM
[2018-10-30] MEDS: VITAMIN B-1 PO SCH (08:17)
[2018-10-30] MEDS: LASIX IV SCH ×2 (08:17→20:27)
[2018-10-30] MEDS: LOVENOX SUBQ SCH ×2 (08:19→20:28)
[2018-10-30] MEDS: MIRALAX NG SCH (08:19)
[2018-10-30] MEDS: LOPRESSOR PO SCH ×2 (08:19→20:27)
[2018-10-30] MEDS: COLACE PO SCH (08:19)
[2018-10-30] MEDS ORDERED: TYLENOL PO PRN (08:45)
--- NOTE | 2018-10-30 10:41 | INFECTIOUS DISEASE PROGRESS NO ---
DATE: 10/30/2018 PRESENT ILLNESS: The patient has persistent pneumonia. On x-ray this morning it appeared to me that it was more prominent in the right lung than the left lung, but the radiologist has not yet read the x-ray. The patient also has an immunoglobulin deficiency and oral candidiasis. MEDICATIONS: This is the 8th day of treatment of the combination of vancomycin and meropenem. The patient also is on nystatin orally. The patient has had a dose of IVIG earlier in this admission. PHYSICAL EXAMINATION: Vital Signs: Earlier the temperature was up to 101 now it is 98, pulse 82, respirations 20, blood pressure 119/70. General: This is an ill-appearing middle-aged male. He is on an oxygen mask. He is in no acute distress. Head, eyes, ears, nose, and throat: He can hear my spoken words and see near objects. He does not have any white coating of his tongue. He is talking in a hoarse voice. Neck: No meningismus. Lungs: Lungs had scattered rhonchi bilaterally. Cardiovascular: Heart rate is regular. Abdomen: Soft and nontender. Neurologic: The patient is awake. He is talking in a coherent fashion. He moves his extremities to request. There is no tremor. Extremities: The patient's left arm PICC site is not red or tender. LAB AND X-RAY: The patient had a chest x-ray done today as I mentioned above, I thought there was bilateral pneumonia which is more in the right lung than the left. However, that was my reading and the radiologist's reading is not yet present. There is no CBC yet for today. The patient's blood gases show a pH of 7.57 a PO2 of 78, and a pCO2 of 58. ASSESSMENT AND PLAN: I plan to continue vancomycin and meropenem for his presumed pneumonia. As mentioned above, the plan is to get a swallow evaluation and if that is okay the patient will start on full liquid diet and if he does well on that, he will be switched to a regular diet. The patient's nystatin also is going to be changed into the swish and swallow if the patient passes his swallow evaluation. COMORBIDITIES: The patient is a cigarette smoker and alcohol abuser, and he has severe deconditioning and protein calorie malnutrition. cc: MD GRACIELA Rodriguez
[2018-10-30] MEDS ORDERED: POTASSIUM CHLORIDE 40 MEQ/SWI 40 MEQ/100 ML IVPB IV ONE (12:50)
--- NOTE | 2018-10-30 13:10 | INFECTIOUS DISEASE PROGRESS NO ---
DATE: 10/30/2018 ADDENDUM: We at bedside gave the patient some liquids, namely coffee, and he did very well swallowing it without any difficulty. We called Dr. Garces, we all have agreed to start the patient on a liquid diet and to remove the NG tube. cc: Sergey Cruz MD
[2018-10-30] MEDS ORDERED: COLACE PO PRN (13:55)
[2018-10-30] MEDS ORDERED: MIRALAX PO PRN (13:55)
[2018-10-30] MEDS: CARDIZEM PO SCH ×2 (14:07→20:27)
--- NOTE | 2018-10-30 14:34 | PROGRESS NOTE ---
DATE: 10/30/2018 SUBJECTIVE: The patient is now better. Not in any obvious distress. OBJECTIVE: Vital signs: Temperature 99.2 degrees, pulse 85, respirations 16, blood pressure is 120/69, oxygen 97%. HEENT: She is atraumatic, normocephalic. Cardiovascular: S1, S2. Respiratory system: Has evidence of good air entry bilaterally. Abdomen: Soft, nontender. No masses felt. Extremities: No evidence of edema. Central nervous system: No obvious focal deficit noted. LABORATORY DATA: ABG 7.57/58/78/97.9%. Chemistry: Sodium is 144, potassium 3.6, chloride is 92, bicarbonate is 45, BUN is 18, creatinine 0.4. ASSESSMENT AND PLAN: 1. Acute hypercapnic respiratory failure. Maintain patient on BiPAP as needed. Pulmonary team is following. 2. Necrotizing pneumonia. Continue antibiotics as well as antifungal agents. 3. Acute pulmonary edema. Continue diuretics. Monitor intakes and outputs, as well as daily weights. 4. Status post cardiac arrest. Aware. 5. History of pulmonary embolism. Continue Lovenox. 6. Chronic obstructive pulmonary disease. Maintain patient on nebulized bronchodilators. 7. Anemia. Follow up on hemoglobin, hematocrit. Transfuse PRBCs as needed. 8. Bacteremia. Resolved. 9. Alcohol dependence. Aware. 10. Gastrointestinal prophylaxis. Proton pump inhibitor. 11. Deep vein thrombosis prophylaxis. The patient is on Lovenox. 12. In general, the patient has done tremendously well. He has been started on a diet and that will be advanced as tolerated. His respiratory status seems to be stable at this time and will plan to transfer him out of the unit in the next 24 to 48 hours. cc: Gopal Garces MD
[2018-10-30] MEDS: VANCOMYCIN 1,800 MG in NS 250 ML IV SCH (16:32)
[2018-10-30] MEDS: PROTONIX IV SCH (20:27)
[2018-10-30] MEDS ORDERED: MIRALAX PO SCH (21:00)
[2018-10-31] MEDS: MERREM 2 GM in NS 100 ML IV SCH ×3 (02:27→16:51)
[2018-10-31] MEDS: CARDIZEM PO SCH ×4 (02:27→20:57)
[2018-10-31] MEDS: MYCOSTATIN SUSP PO SCH ×4 (02:27→20:58)
[2018-10-31] MEDS: DUONEB (A & A) INH SCH ×6 (03:41→23:23)
[2018-10-31 04:36] LABS: ALLEN TEST YES; BE 26.2 mmoll (-3.0-3.0); BLOOD TYPE ARTERIAL; HCO3-(ACT) 45.4 mmoll (20.0-26.0); METHB 1.3 % (0.0-1.5); O2(CT) 11.5 mL/dL (15.0-23.0); PO2(98.6) 97 mmHg (60-100); SAMPLE BLOOD; SAO2 99.2 % (95.0-100.0); THB 8.4 g/dL (11.5-17.4); pH(98.6) 7.46 (7.35-7.45)
[2018-10-31] MEDS ORDERED: AYR NASAL SPRAY NAS PRN (04:36)
[2018-10-31 04:37] LABS: MODALITY COOL AEROSOL; PCO2(98.6) 75 mmHg (35-45)
[2018-10-31] MEDS: TRANSDERM-SCOP TD SCH (06:16)
--- NOTE | 2018-10-31 08:11 | Diag Imaging Result Doc PS360 ---
CHEST-1 VIEW - 10/31/2018 INDICATION: SOB COMPARISON: 10/30/2018 FINDINGS: The nasogastric tube has been removed. Stable left PICC line in good position. Heart size remains normal. There has been some decrease in the bibasilar infiltrates and effusions. Stable pulmonary vascular congestion and mild pulmonary edema. IMPRESSION: Decrease in the bibasilar airspace opacification and pleural effusions. Persistent pulmonary vascular congestion and pulmonary edema. Electronically signed by Mateo Campos 10/31/2018 8:08 AM
[2018-10-31] MEDS: VITAMIN B-1 PO SCH (08:22)
[2018-10-31] MEDS: LASIX IV SCH ×2 (08:22→20:57)
[2018-10-31] MEDS: LOPRESSOR PO SCH ×2 (08:22→20:58)
[2018-10-31] MEDS: LOVENOX SUBQ SCH ×2 (08:42→20:58)
[2018-10-31] MEDS ORDERED: NICODERM PATCH TD ONE (12:19)
--- NOTE | 2018-10-31 12:36 | PROGRESS NOTE ---
DATE: 10/31/2018 SUBJECTIVE: The patient is resting in bed. Doing relatively well. Has family present in the room. OBJECTIVE: Vital signs: Temperature 98.7 degrees, pulse is 80, respiratory 21, blood pressure is 131/81, oxygen saturation 94%. HEENT: Atraumatic, normocephalic. Cardiovascular: S1, S2. Respiratory system: Has evidence of good air entry bilaterally. Abdomen: Soft, nontender. No masses felt. Extremities: No evidence of edema. Central nervous system: No obvious focal deficit. LABORATORY DATA: ABG 7.46/75/97/99.2%. ASSESSMENT AND PLAN: 1. Acute hypercapnic respiratory failure. Maintain the patient on BiPAP as needed. Pulmonary is following. 2. Necrotizing pneumonia. Continue antibiotics as well as antifungal agent. 3. Acute pulmonary edema. Continue diuretics. Monitor intakes and outputs, as well as daily weights. 4. Status post cardiac arrest. Aware. 5. History of pulmonary thromboembolism. Continue Lovenox. 6. Chronic obstructive pulmonary disease. Use nebulized bronchodilators as needed. 7. Anemia. Follow up on hemoglobin and hematocrit. Transfuse packed red blood cells as needed. 8. Bacteremia, resolved. 9. Alcohol dependence. Aware. 10. Gastrointestinal prophylaxis. Proton pump inhibitor. 11. Deep vein thrombosis prophylaxis. Lovenox. 12. Disposition. The patient can be transferred to the floor as she has done fairly well. cc: Gopal Garces MD
[2018-10-31] MEDS: VANCOMYCIN 1,800 MG in NS 250 ML IV SCH (12:41)
[2018-10-31] MEDS: SODIUM CHLORIDE 0.9% INJ SCH (20:58)
[2018-10-31] MEDS: PROTONIX IV SCH (20:58)
[2018-11-01] MEDS: MERREM 2 GM in NS 100 ML IV SCH ×3 (01:31→18:21)
[2018-11-01] MEDS: CARDIZEM PO SCH ×2 (01:31→08:53)
[2018-11-01] MEDS: DUONEB (A & A) INH SCH ×6 (03:22→23:35)
[2018-11-01 04:35] LABS: ALLEN TEST YES; BE 18.4 mmoll (-3.0-3.0); BLOOD TYPE ARTERIAL; HCO3-(ACT) 39.1 mmoll (20.0-26.0); METHB 1.3 % (0.0-1.5); O2(CT) 26.7 mL/dL (15.0-23.0); O2HB 93.8 % (95.0-99.0); PO2(98.6) 74 mmHg (60-100); SAMPLE BLOOD; SAO2 96.9 % (95.0-100.0); THB 20.3 g/dL (11.5-17.4)
[2018-11-01 04:36] LABS: MODALITY VENTIMASK; PCO2(98.6) 60 mmHg (35-45)
[2018-11-01] MEDS: MYCOSTATIN SUSP PO SCH ×4 (05:25→20:58)
[2018-11-01] MEDS: VANCOMYCIN 1,800 MG in NS 250 ML IV SCH ×2 (05:31→20:58)
--- NOTE | 2018-11-01 08:07 | Diag Imaging Result Doc PS360 ---
EXAM: CHEST-1 VIEW INDICATION: SOB TECHNIQUE: One view COMPARISON: 10/31/2018 FINDINGS: The left PICC line is in stable position. Bibasilar infiltrates, worse on the right, are essentially stable. There is stable interstitial edema. No new consolidation is identified. Cardiac silhouette is stable. IMPRESSION: Essentially stable chest. Electronically signed by Phill Burroughs 11/01/2018 8:05 AM
[2018-11-01] MEDS: LASIX IV SCH ×2 (08:52→20:58)
[2018-11-01] MEDS: LOVENOX SUBQ SCH (08:52)
[2018-11-01] MEDS: NICODERM PATCH TD SCH (08:53)
[2018-11-01] MEDS: VITAMIN B-1 PO SCH (08:53)
[2018-11-01] MEDS: LOPRESSOR PO SCH ×2 (08:53→20:58)
--- NOTE | 2018-11-01 11:11 | PROGRESS NOTE ---
DATE: 11/01/2018 SUBJECTIVE: The patient was seen this morning in the Critical Care Unit. The brother was at the bedside at the time of the encounter. The brother was concerned that Mr. Almanza has had some episodes of confusion. According to Mr. Almanza himself, he thinks he is doing a lot better. His breathing is better. PHYSICAL EXAMINATION: Vital Signs: Blood pressure is 141/92, pulse is 90, respiration is 15, temperature is 97.6. General exam: Mr. Almanza is a 57-year-old gentleman. He is in bed. He is not in any cardiopulmonary distress. He is, however, on nasal cannular of about 6 liters. HEENT: Mucosa is pink and moist. Anicteric. Acyanotic. Neck: Supple. Chest: Air entry is bilaterally reduced. There is bilateral crepitations in both lung butterfield. There is increased focal parameters to the right posterior lung field. There is also egophony pectoriloquy on auscultation to the right posterior lung field. Cardiovascular: Regular rate and rhythm. No murmurs, no rubs, no gallops. GI: Abdomen is soft, nontender. Bowel sounds present. : Parks catheter is in place. Extremities: No pedal edema. PAPER SORTER: Patient is awake, alert, oriented and follows basic commands. LABORATORY DATA: Has been reviewed. No CBC this morning. Chemistry: ProBNP is 322 from yesterday. IMAGING DATA: A chest x-ray this morning shows bibasilar infiltrates, worse on the right, are essentially stable. ASSESSMENT: 1. Acute hypoxemic respiratory failure. The patient was initially intubated. Has been successfully extubated since October 27. Today is day five post extubation. He is currently on nasal cannula, meeting his oxygen needs. Pulmonary Medicine is on board. We are going to continue titrating his oxygen device. 2. Severe multifocal streptococcal pneumoniae pneumonia with bacteremia. The patient is on intravenous antibiotics. Subsequent blood cultures have been negative. Infectious Disease is on board. 3. Status post cardiopulmonary arrest. Initial rhythm seems to be pulseless electrical activity (bradycardia with no pulse). Downtime was about 3 minutes in the emergency room. 4. Septic shock secondary to multifocal pneumonia, resolved. 5. Atrial fibrillation with rapid ventricular response during the hospital course. This could all be related to the ongoing sepsis. The patient is currently on Cardizem and also Eliquis. 6. Pulmonary embolism noted. 7. The patient is on anticoagulation. 8. Necrotizing pneumonia. We will continue with the current antimicrobial. 9. Suspected chronic obstructive pulmonary disease. 10. Ongoing tobacco abuse prior to hospital admission. PLAN: So, in general, Mr. Almanza seems to be clinically stable. He is down to 6 L of nasal cannula; seems to be tolerating some oral nutrition. We are going to discontinue the Parks catheter and transfer him from the ICU to regular floor. We have also switched him to long-acting Cardizem and also p.o. anticoagulant. We will consult dietitian to help with nutritional support, and we will get the patient to sit up at least 2 times per day to help open the lungs more. We will encourage that he use his incentive spirometer. I will continue with all his other management. I have explained the plan to him and the and brother, who was at the bedside at the time of the encounter. cc: Yusuf Coker MD [facility]TD[facility]
[2018-11-01] MEDS ORDERED: CARDIZEM LA PO SCH (15:00)
[2018-11-01] MEDS: CARDIZEM LA PO SCH (15:46)
--- NOTE | 2018-11-01 19:55 | INFECTIOUS DISEASE PROGRESS NO ---
DATE: 11/01/2018 PRESENT ILLNESS: The patient has bilateral pneumonia. He also has an immunoglobulin deficiency and oral candidiasis. MEDICATIONS: This is the 10th day of treatment with a combination of vancomycin and meropenem. The patient also is on nystatin swish and swallow for his oral candidiasis. Earlier the patient received a dose of IVIG which has corrected the IgG deficiency for the time being. PHYSICAL EXAMINATION: Vital Signs: Temperature is 99.6 degrees, pulse 78, respirations 20, blood pressure 115/68. General: This is an ill-appearing middle-aged male. He is on oxygen nasal prongs. He can hear my spoken words and see near objects. He does not have any white coating on his tongue. Neck: There is no stiffness. Lungs: Scattered rhonchi. Cardiovascular: Heart rate is regular. Abdomen: Soft and nontender. Neurologic: The patient is awake. He can move his extremities, but he is very weak. Extremities: The patient's PICC site is not erythematous or purulent. LABS AND X-RAY: Chest x-ray shows bibasilar infiltrate. The patient's blood gases show a pH of 7.5, PO2 of 74, and a pCO2 of 60. ASSESSMENT AND PLAN: The patient has pneumonia being treated by vancomycin and meropenem, and he also has Clostridium difficile diarrhea treated by oral candidiasis. The patient has severe deconditioning. For now I plan to continue his current medications. COMORBIDITIES: Cigarette smoking, alcohol abuser, and now unfortunately the patient has severe deconditioning with protein calorie malnutrition. cc: Sergey Cruz MD
[2018-11-01] MEDS: PROTONIX IV SCH (20:58)
[2018-11-01] MEDS: ELIQUIS PO SCH (20:58)
[2018-11-01] MEDS: SODIUM CHLORIDE 0.9% INJ SCH (20:58)
[2018-11-02] MEDS: DUONEB (A & A) INH SCH ×6 (03:35→23:30)
[2018-11-02] MEDS: MERREM 2 GM in NS 100 ML IV SCH ×3 (03:35→20:08)
[2018-11-02 04:50] LABS: ALLEN TEST YES; BE 19.5 mmoll (-3.0-3.0); BLOOD TYPE ARTERIAL; HCO3-(ACT) 40.1 mmoll (20.0-26.0); METHB 1.5 % (0.0-1.5); O2(CT) 13.7 mL/dL (15.0-23.0); O2HB 94.2 % (95.0-99.0); PO2(98.6) 77 mmHg (60-100); SAMPLE BLOOD; SAO2 97.4 % (95.0-100.0); THB 10.3 g/dL (11.5-17.4); pH(98.6) 7.54 (7.35-7.45)
[2018-11-02 05:04] LABS: MODALITY ROOM AIR; PCO2(98.6) 52 mmHg (35-45)
[2018-11-02] MEDS: MYCOSTATIN SUSP PO SCH ×4 (05:43→20:09)
[2018-11-02] MEDS: VANCOMYCIN 1,800 MG in NS 250 ML IV SCH ×2 (06:59→16:29)
[2018-11-02 07:18] LABS: BASO# 0.07 X1000 (0.0-0.2); BASO% 0.6 % (0.0-0.8); EOS% 0.8 % (0.0-10.0); HEMATOCRIT 32.3 % (42.0-52.0); HEMOGLOBIN 10.7 g/dL (14.0-18.0); IMM GRAN# 0.12 X1000 (0.0-0.04); LYMPH# 1.67 X1000 (1.2-3.4); LYMPH% 13.6 % (20.5-51.1); MCH 31.2 PG (27-31); MCHC 33.1 g/dL (33-37); MCV 94.2 FL (81-99); MONO# 1.18 X1000 (0.11-0.59); MONO% 9.6 % (1.7-9.3); MPV 8.3 FL (7.4-10.4); NEUT# 9.12 X1000 (1.4-6.5); NEUT% 74.4 % (42.2-75.2); PLT 488 X1000 (130-400); RBC 3.43 XMIL (4.7-6.1); RDW 13.9 % (11.5-14.5); WBC 12.26 X1000 (4.8-10.8)
[2018-11-02 07:50] LABS: ESTIMATED GFR > 60
[2018-11-02 08:05] LABS: AGAP 11; ALB/GLOB RATIO 0.9; ALBUMIN 3.1 g/dL (3.5-5.0); ALKALINE PHOSPHATASE 133 U/L (32-122); BUN 15 mg/dL (8-22); CALCIUM 9.1 mg/dL (8.8-10.2); CHLORIDE 84 mmol/L (98-107); COSMO 271; CREATININE 0.5 mg/dL (0.7-1.2); GLUCOSE 103 mg/dL (70-104); GOT 25 U/L (10-34); GPT 23 U/L (10-44); POTASSIUM 2.9 mmol/L (3.5-5.1); SODIUM 135 mmol/L (136-145); TCO2 40 mmol/L (25-35); TOTAL BILIRUBIN 0.29 mg/dL (0.20-1.00); TOTAL PROTEIN 6.6 g/dL (6.3-8.3)
--- NOTE | 2018-11-02 08:17 | Diag Imaging Result Doc PS360 ---
EXAM: CHEST-1 VIEW INDICATION: SOB TECHNIQUE: One view COMPARISON: 11/01/2018 FINDINGS: The left PICC line is in stable position. Bibasilar infiltrates, worse on the right, are essentially stable. There appears to be cavitation in the right mid to lower lung zone that can also be seen on the previous study and is essentially unchanged. Interstitial edema is stable and there is suggestion of small bilateral effusions that are unchanged. No new consolidation is identified. Cardiac silhouette is stable. IMPRESSION: Stable chest. Electronically signed by Phill Burroughs 11/02/2018 8:14 AM
--- NOTE | 2018-11-02 09:04 | PROVIDER PROGRESS NOTE ---
Progress Note Pulmonary note: Mr. Almanza is extubated a while ago and tolerating RA. Physical Therapy is instrumental at this stage. Will sign off and see as needed only. Thank you for making our team part of his care.
[2018-11-02] MEDS: LOPRESSOR PO SCH ×2 (09:46→20:09)
[2018-11-02] MEDS: NICODERM PATCH TD SCH (09:46)
[2018-11-02] MEDS: VITAMIN B-1 PO SCH (09:46)
[2018-11-02] MEDS: ELIQUIS PO SCH ×2 (09:46→20:09)
[2018-11-02] MEDS: LASIX IV SCH ×2 (09:47→20:08)
[2018-11-02] MEDS ORDERED: KLOR-CON PO ONE ×2 (11:08→13:00)
--- NOTE | 2018-11-02 12:18 | INFECTIOUS DISEASE PROGRESS NO ---
DATE: 11/02/2018 PRESENT ILLNESS: The patient has the following problems: Bilateral pneumonia, immunoglobulin deficiency, and oral candidiasis. MEDICATIONS: This is the 11th day of treatment with the combination of vancomycin and meropenem. Before that, the patient was treated with Rocephin for a pneumococcal pneumonia and bacteremia. The patient is on nystatin swish and swallow for his oral candidiasis. The patient also has received IVIG to increase his low IgG level. OBJECTIVE: Vital Signs: Temperature is 98.1 degrees, pulse 83, respirations 18, blood pressure 119/75. Generally: This is a chronically ill-appearing, middle-aged male. He is in no acute distress. Head/eyes/ears/nose/throat: He can hear my spoken words and see near objects. He does not have any white patches on his tongue. Neck: He does not have any pain with movement of his neck. Lungs: There were bilateral scattered rhonchi. Cardiovascular: Heart rate is regular. Abdomen: Soft and nontender. Neurologic: The patient is awake he can move his extremities but he is very weak. Extremities: The patient's PICC site is not erythematous or swollen. LABORATORY AND X-RAY: Chest x-ray shows bibasilar infiltrates with right-sided cavitation. CBC shows a white count of 12,260, hemoglobin 10.7, and platelet count 488,000. Patient's blood gases show a pH of 7.54, PO2 of 77, a pCO2 of 52. Creatinine is 0.5. GFR is greater than 60. Chest x- ray shows bibasilar infiltrates with right-sided cavitation. ASSESSMENT AND PLAN: 1. The patient has bilateral pneumonia. He has an immunoglobulin deficiency. He has oral candidiasis. My plan is to continue with his current medications, namely meropenem and vancomycin. The patient is already received IVIG and does not require further infusion until 4 to 6 weeks from now. The patient does have pneumonia, some of which is cavitary. The patient is very weak from his being so ill and being in bed for quite a bit. 2. Comorbidities are cigarette smoking, alcohol abuse, severe deconditioning with protein calorie malnutrition. cc: Sergey Cruz MD
[2018-11-02] MEDS: CARDIZEM LA PO SCH (14:32)
--- NOTE | 2018-11-02 15:43 | PROGRESS NOTE ---
DATE: 11/02/2018 SUBJECTIVE: Patient resting on bed. OBJECTIVE: Vital signs: Temperature 98.6 degrees, pulse 96, respiration 18, blood pressure 137/84, saturation 92%. HEENT: Atraumatic, normocephalic. Cardiovascular: S1, S2. Respiratory: Has evidence of good entry bilaterally. Abdomen: Soft, nontender, no masses felt. Extremities: No evidence of edema. Central nervous system: No obvious focal deficit noted. LABS: WBC is 12.66, hematocrit is 32.3 with a platelet count of 480,000, sodium is 135, potassium 2.9, chloride is 84, bicarb is 20, BUN is 15, creatinine 0.5. ABG 7.54/52/77/97.4%. ASSESSMENT AND PLAN: 1. Acute hypercapnic respiratory failure, maintain patient on BiPAP as needed. Pulmonary following. 2. Necrotizing pneumonia, continue antibiotics as well as antifungal as recommended by ID. 3. Acute pulmonary edema. Continue diuretics monitor I's and O's well as daily weights. 4. Status post cardiac arrest. Aware. 5. History of pulmonary embolism, continue Lovenox. 6. Chronic obstructive pulmonary disease . Use nebulized bronchodilators as needed. 7. Anemia, follow up on hemoglobin, hematocrit, transfuse PRBC as needed. 8. Bacteremia resolved. 9. Alcohol dependence aware. 10. Gastrointestinal prophylaxis proton pump inhibitor. 11. Deep vein thrombosis prophylaxis Lovenox. 12. Hypokalemia, replace potassium level and check mag level. cc: Gopal Garces MD
[2018-11-02] MEDS: PROTONIX IV SCH (20:08)
[2018-11-02] MEDS: SODIUM CHLORIDE 0.9% INJ SCH (20:09)
[2018-11-03] MEDS: DUONEB (A & A) INH SCH ×7 (03:30→23:29)
[2018-11-03] MEDS: MERREM 2 GM in NS 100 ML IV SCH ×3 (04:50→20:37)
[2018-11-03 05:18] LABS: ALLEN TEST YES; BE 17.5 mmoll (-3.0-3.0); BLOOD TYPE ARTERIAL; HCO3-(ACT) 38.5 mmoll (20.0-26.0); METHB 0.3 % (0.0-1.5); O2(CT) 12.4 mL/dL (15.0-23.0); O2HB 90.9 % (95.0-99.0); PO2(98.6) 60 mmHg (60-100); SAMPLE BLOOD; SAO2 95.1 % (95.0-100.0); THB 9.7 g/dL (11.5-17.4); pH(98.6) 7.52 (7.35-7.45)
[2018-11-03 05:21] LABS: MODALITY CANNULA; PCO2(98.6) 52 mmHg (35-45)
[2018-11-03] MEDS: MYCOSTATIN SUSP PO SCH ×4 (05:24→20:38)
--- NOTE | 2018-11-03 07:11 | Diag Imaging Result Doc PS360 ---
EXAM: CHEST-1 VIEW INDICATION: SOB TECHNIQUE: One view COMPARISON: 11/02/2018 FINDINGS: The left PICC line is in stable position. Bilateral lower zone infiltrates with possible cavitation on the right are stable. Small bilateral effusions are stable. No new consolidation is identified. Cardiac silhouette is stable. IMPRESSION: Stable chest. Electronically signed by Phill Burroughs 11/03/2018 7:09 AM
[2018-11-03] MEDS: LASIX IV SCH ×2 (08:25→20:38)
[2018-11-03] MEDS: NICODERM PATCH TD SCH (08:25)
[2018-11-03] MEDS: ELIQUIS PO SCH ×2 (08:26→20:38)
[2018-11-03] MEDS: VITAMIN B-1 PO SCH (08:26)
[2018-11-03] MEDS: LOPRESSOR PO SCH ×2 (08:26→20:38)
[2018-11-03] MEDS: VANCOMYCIN 1,800 MG in NS 250 ML IV SCH (11:22)
--- NOTE | 2018-11-03 13:16 | PROGRESS NOTE ---
DATE: 11/03/2018 SUBJECTIVE: The patient resting in bed. Feels very weak. OBJECTIVE: Vital Signs: Temperature 97 degrees, pulse 88, respirations 22, blood pressure 123/72, oxygen saturation is 96%. HEENT: Atraumatic, normocephalic. Cardiovascular System: S1, S2. Respiratory system: Has evidence of good entry bilaterally. Abdomen: Soft, nontender. No masses felt. Extremities: No evidence of significant edema. Central nervous system: No evidence of focal deficit noted. LABORATORY DATA: ABG 7.52/52/60/95.1. ASSESSMENT AND PLAN: 1. Acute respiratory failure. Maintain patient on BiPAP as needed. Pulmonary following. 2. Necrotizing pneumonia continue antibiotics as recommended by Infectious Disease. 3. Pulmonary edema. Continue diuretics. Monitor intakes and outputs, as well as daily weights. 4. Status post cardiac arrest. Aware. 5. History of pulmonary embolism. Continue Lovenox. 6. Chronic obstructive pulmonary disease . Use nebulized bronchodilators. 7. Anemia follow up on hemoglobin, hematocrit. Transfuse packed red blood cells as needed. 8. Bacteremia. Resolved. 9. Alcohol dependence. 10. Deep vein thrombosis prophylaxis. Lovenox. 11. Severe deconditioning: physical therapy recommended. 12. Disposition. Patient is currently uninsured and discharging to a SNF may not be feasible. Patient may likely end up going home with home health services. cc: Gopal Garces MD [facility]TD[facility]
[2018-11-03] MEDS: CARDIZEM LA PO SCH (14:52)
--- NOTE | 2018-11-03 15:34 | INFECTIOUS DISEASE PROGRESS NO ---
DATE: 11/03/2018 PRESENT ILLNESS: The patient has a bilateral pneumonia, an immunoglobulin deficiency, and oral candidiasis. MEDICATIONS: This is day 12 of the combination of meropenem and vancomycin. PHYSICAL EXAMINATION: Vital Signs: Temperature is 97 degrees, pulse 88, respirations 22, blood pressure 123/72. General: This is a chronically ill-appearing middle-aged male he is in no acute distress. Head, eyes, ears, nose, and throat: He can hear my spoken words and see near objects. He does not have any white coating on his tongue. Neck: The patient does not have any pain when he moves his neck. Lungs: There were bilateral rhonchi. Cardiovascular: Heart rate is regular. Abdomen: Soft and nontender. Neurologic: The patient is awake he can move his extremities. He is very weak. There is no tremor. He tells me that he walked approximately 300 feet today. Extremities: The patient's PICC site in the left arm is not erythematous or purulent. LAB AND RADIOLOGY: The only lab for today is arterial blood gases with pH 7.52, pO2 60 and pCO2 52. Chest x-ray shows stable bibasilar infiltrates. ASSESSMENT AND PLAN: Patient has had a severe pneumonia. My plan is to continue his current antibiotics for another day or 2 and then try to switch him over to something by mouth. The patient has an immunoglobulin deficiency. I will need to repeat that in 4 to 6 weeks from his last infusion and see if his level has fallen again and if it has then the patient may well be a candidate for monthly IVIG. COMORBIDITIES: Include cigarette smoking, alcohol abuse, and currently now the patient has severe deconditioning because of his chronic illness and associated protein calorie malnutrition. cc: Sergey Cruz MD [facility]
[2018-11-03] MEDS: PROTONIX PO SCH (20:38)
[2018-11-04] MEDS: MYCOSTATIN SUSP PO SCH ×4 (02:15→22:03)
[2018-11-04] MEDS: DUONEB (A & A) INH SCH ×6 (03:35→23:15)
[2018-11-04] MEDS: MERREM 2 GM in NS 100 ML IV SCH (05:41)
[2018-11-04 05:52] LABS: ALLEN TEST YES; BE 14.2 mmoll (-3.0-3.0); BLOOD TYPE ARTERIAL; HCO3-(ACT) 35.6 mmoll (20.0-26.0); O2(CT) 13.1 mL/dL (15.0-23.0); PCO2(98.6) 49 mmHg (35-45); SAMPLE BLOOD; SAO2 81.1 % (95.0-100.0); THB 11.9 g/dL (11.5-17.4); pH(98.6) 7.51 (7.35-7.45)
[2018-11-04 05:59] LABS: MODALITY ROOM AIR; O2HB 78.6 % (95.0-99.0); PO2(98.6) 44 mmHg (60-100)
[2018-11-04 06:06] LABS: HEMOGLOBIN 10.7 g/dL (14.0-18.0); LYMPH% 17.2 % (20.5-51.1)
[2018-11-04 06:07] LABS: AGAP 14; BUN 13 mg/dL (8-22); CALCIUM 9.2 mg/dL (8.8-10.2); CHLORIDE 91 mmol/L (98-107); COSMO 279; CREATININE 0.5 mg/dL (0.7-1.2); GLUCOSE 89 mg/dL (70-104); POTASSIUM 3.3 mmol/L (3.5-5.1); SODIUM 140 mmol/L (136-145); TCO2 35 mmol/L (25-35)
[2018-11-04 06:23] LABS: BASO# 0.08 X1000 (0.0-0.2); BASO% 0.7 % (0.0-0.8); EOS# 0.11 X1000 (0.0-0.7); EOS% 0.9 % (0.0-10.0); HEMATOCRIT 32.6 % (42.0-52.0); IMM GRAN# 0.09 X1000 (0.0-0.04); IMM GRAN% 0.7 % (0.0-0.5); LYMPH# 2.06 X1000 (1.2-3.4); MCH 31.1 PG (27-31); MCHC 32.8 g/dL (33-37); MCV 94.8 FL (81-99); MONO# 1.43 X1000 (0.11-0.59); MONO% 11.9 % (1.7-9.3); MPV 8.8 FL (7.4-10.4); NEUT# 8.24 X1000 (1.4-6.5); NEUT% 68.6 % (42.2-75.2); PLT 476 X1000 (130-400); RBC 3.44 XMIL (4.7-6.1); WBC 12.01 X1000 (4.8-10.8)
--- NOTE | 2018-11-04 07:13 | Diag Imaging Result Doc PS360 ---
EXAM: CHEST-1 VIEW HISTORY: SOB TECHNIQUE: Portable chest single view COMPARISON: 11/03/2018 FINDINGS: There are dense infiltrates in the mid and lower right lung with smaller infiltrates in the lower left lung. The heart is not enlarged. There are small pleural effusions. No change in the left-sided PICC line. The upper lungs remain clear. IMPRESSION: Fairly stable exam. Electronically signed by Gareth Garcia 11/04/2018 7:10 AM
[2018-11-04] MEDS: LASIX IV SCH ×2 (10:29→22:01)
[2018-11-04] MEDS: ELIQUIS PO SCH ×2 (10:29→22:03)
[2018-11-04] MEDS: VITAMIN B-1 PO SCH (10:29)
[2018-11-04] MEDS: NICODERM PATCH TD SCH (10:29)
[2018-11-04] MEDS: LOPRESSOR PO SCH ×2 (10:29→22:03)
[2018-11-04] MEDS ORDERED: VANCOMYCIN 1,800 MG in NS 250 ML IV SCH (11:00)
--- NOTE | 2018-11-04 12:44 | PROGRESS NOTE ---
DATE: 11/04/2018 SUBJECTIVE: This morning Mr. Almanza refers to be doing a lot better. He is breathing better than before. OBJECTIVE: Vital signs: Blood pressure is 107/59, pulse is 89, respiration is 18, temperature is 98.2. The patient was saturating about 97% on 2 L. General: Mr. Almanza is a 54-year-old gentleman. He was sitting up in a chair in no distress. HEENT: Mucosa is pink and moist. Anicteric. Acyanotic. Neck: Supple. Chest: Air entry is bilaterally reduced. There are still crackles in the posterior lung butterfield. There is some egophony pectoriloquy on auscultation in the right posterior lung field. Cardiovascular: Regular rate and rhythm. No murmurs, no rubs, no gallops. : Abdomen is soft, nontender. Bowel sounds present. Extremities: No pedal edema. ANIMAL CARE TAKER: Patient is awake, alert, and oriented. LABORATORY DATA: WBC is 12.01, hemoglobin is 10.7, platelet count 476. Chemistry is also reviewed, potassium is 3.3 and rest of chemistry is unremarkable. IMAGING STUDIES: A chest x-ray which was done on the was stable. There are no new imaging studies. Patient antimicrobials include meropenem and vancomycin. ASSESSMENT: 1. Acute hypoxemic respiratory failure. Patient is currently on a nasal cannula. 2. Severe multifocal streptococcal pneumoniae pneumonia with bacteremia. Subsequent blood cultures have been negative, and multiple chest x-rays continue to show consolidation in the left and the right posterior lung field. There is the concern that there could be an abscess. 3. Status post cardiopulmonary arrest. Initial rhythm was pulseless electrical activity. Downtime was about 3 minutes. 4. Septic shock secondary to multifocal pneumonia, resolved. 5. Atrial fibrillation with rapid ventricular response. The patient is on Cardizem. 6. Pulmonary embolism noted. 7. Necrotizing pneumonia with suspicion of abscess. We will repeat a CT scan of the chest for tomorrow morning, and to have a better idea of what is going on in the lung anatomy. 8. Chronic obstructive pulmonary disease with ongoing tobacco abuse. Before hospitalization, patient has been counseled. PLAN: So, in general, Mr. Almanza seems to be doing a lot better. From ID documentation yesterday, it appears that they plan to switch him to p.o. antibiotics within a day or 2. Will be waiting for further recommendations from them. Mr. Almanza continues to be remarkably symptomatic on auscultation. There was a concern that he had an abscess in the lungs. We will do a follow-up CT scan to make sure that there is resolution of this, or if anything else needs to be done. cc: Yusuf Coker MD
[2018-11-04] MEDS: CARDIZEM LA PO SCH (18:03)
[2018-11-04] MEDS ORDERED: KLOR-CON PO ONE (19:58)
--- NOTE | 2018-11-04 20:03 | INFECTIOUS DISEASE PROGRESS NO ---
DATE: 11/04/2018 PRESENT ILLNESS: Mr. Almanza is being treated for bilateral pneumonia, which is persistent, an immunoglobulin deficiency, and oral candidiasis. MEDICATIONS: He has had 2 weeks of IV vancomycin per pharmacy dosing and meropenem 2 g IV every 8 hours. He has also been on nystatin swish and swallow 4 times a day. He previously received IVIG on this admission with good response. PHYSICAL EXAMINATION: Vital Signs: Temperature is 98, pulse rate 82, respiratory rate 18, blood pressure 109/79, O2 saturation is 95% on 3 L nasal cannula. General: This is a chronically ill- appearing, middle-aged gentleman. He is lying in the bed currently, in no acute distress. HEENT: Atraumatic, normocephalic. Oral mucous membranes are pink and dry. Conjunctivae are pink. Neck: Supple. Trachea is midline. Cardiovascular: Heart rate and rhythm are regular. Normal sinus rhythm on the monitor with occasional PACs and PVCs. Respiratory: Clear in the upper lobes. Diminished in the mid and bases. Abdomen: Soft. Flat, nontender. Bowel sounds are active. Neurologic: He is awake, alert, oriented, able to get up to the bedside commode with assistance. Integumentary: Skin is warm and dry. There is a PICC line in place to the left upper arm. The site is without edema, erythema, or drainage. LABORATORY AND X-RAY: Today his white count is 12.01, hemoglobin 10.7, platelet count 476,000. ABGs on room air showed a pH of 7.51, pCO2 of 49, pO2 of 44, HCO-3 of 35.6, creatinine 0.5. Estimated GFR greater than 60. Originally, he had a pneumococcal pneumonia with bacteremia. Most recent sputum has shown no growth and blood cultures have shown no growth. Chest x-ray today is stable and shows dense infiltrates in the mid and lower right lung and smaller infiltrates in the lower left lung. ASSESSMENT AND PLAN: Mr. Almanza has been treated for the last month with intravenous antibiotics for his pneumonia. Over the last 2 weeks he has been on meropenem and vancomycin . We will discontinue those at this time and start him on an oral regimen using doxycycline 100 mg by mouth every 12 hours and cefuroxime 500 mg by mouth every 12 hours. Most likely, he will need long-term oral antibiotic therapy due to the persistence of his pneumonia. We will plan to follow up with him in our office in 2 weeks from discharge. Also, we will continue his Nystatin swish and swallow as long as he is on the antibiotics, and we will recheck his immunoglobulin levels in 6 to 8 weeks after his last infusion of IVIG. I've discussed with him the importance of abstinence from cigarettes and alcohol when he goes home. He is confident right now that he will not pick the habits back up. His family are going to try to help him be successful. These plans have been discussed with and recommended by Dr. Cruz. COMORBIDITIES: For Mr. Almanza include cigarette smoking, alcohol abuse and deconditioning due to prolonged hospitalization with protein calorie malnutrition. Dictated by YING Vincent for Sergey Cruz MD cc: Sergey Cruz MD [facility]
[2018-11-04] MEDS: PROTONIX PO SCH (22:03)
[2018-11-04] MEDS: DOXYCYCLINE PO SCH (22:04)
[2018-11-04] MEDS: CEFTIN PO SCH (22:04)
[2018-11-05] MEDS: DUONEB (A & A) INH SCH ×4 (03:20→16:16)
[2018-11-05] MEDS: MYCOSTATIN SUSP PO SCH ×3 (04:31→15:05)
--- NOTE | 2018-11-05 08:12 | Diag Imaging Result Doc PS360 ---
EXAM: CHEST-1 VIEW INDICATION: SOB TECHNIQUE: One view COMPARISON: 11/04/2018 FINDINGS: The left PICC line is in stable position. Bilateral infiltrates at the bases, worse on the right, are grossly stable. No new consolidation is identified. There are stable small effusions. Cardiac silhouette is stable. IMPRESSION: Essentially stable chest. Electronically signed by Phill Burroughs 11/05/2018 8:09 AM
[2018-11-05] MEDS: CEFTIN PO SCH (09:22)
[2018-11-05] MEDS: ELIQUIS PO SCH (09:23)
[2018-11-05] MEDS: VITAMIN B-1 PO SCH (09:23)
[2018-11-05] MEDS: DOXYCYCLINE PO SCH (09:23)
[2018-11-05] MEDS: LOPRESSOR PO SCH (09:23)
[2018-11-05] MEDS: LASIX IV SCH (09:23)
[2018-11-05] MEDS: NICODERM PATCH TD SCH (09:23)
--- NOTE | 2018-11-05 14:44 | Diag Imaging Result Doc PS360 ---
EXAM: CT THORAX W/CONTRAST 11/05/2018 HISTORY: pneumonia with suspicion of lung abscess TECHNIQUE: This exam was performed using automated exposure control, adjustment of mA or kV according to patient size, and/or use of iterative reconstruction technique. COMMENT: There is apical pleural fibrosis bilaterally and some bullous changes in the right apex. There are air bronchograms posteriorly in both lower lobes particularly the right upper lobe. Some opacification is also present adjacent to the upper portion of the major fissure on the right in the upper lobe. There is atelectasis or fibrosis in the right middle lobe and lingula inferiorly. Compared to 10/15/2018, the interstitial opacities in both upper lobes have largely resolved. There has been some improvement in pneumatization and the interstitial opacities present in the right middle lobe and left lower lobe since the previous study. There is a cavitary lesion present in the right lower lobe which was not evident on the previous study. This may represent an abscess. There are bilateral pleural effusions. The right-sided effusion may be partially loculated and is somewhat larger than on the previous examination. There is extensive calcification in the left anterior descending coronary artery. There are aorticopulmonary window nodes which appear to have decreased slightly in size since the previous study. IMPRESSION: Improved pulmonary edema. Bilateral pneumonias, and pleural effusions. Possible right lower lobe pulmonary abscess. Improved mediastinal adenopathy. Electronically signed by Anthony Bustamante 11/05/2018 2:42 PM
[2018-11-05] MEDS: CARDIZEM LA PO SCH (15:05)
[2018-11-05 16:01] VITALS: BP 141/72
--- NOTE | 2018-11-05 16:22 | INFECTIOUS DISEASE PROGRESS NO ---
DATE: 11/05/2018 PRESENT ILLNESS: The patient has bilateral pneumonia, immunoglobulin deficiency, and oral candidiasis. MEDICATIONS: Yesterday the patient was switched from meropenem and vancomycin to a combination of Ceftin and doxycycline, which he has tolerated well. PHYSICAL EXAMINATION: Vital Signs: Temperature is 97.9 degrees, pulse 84, respirations 14, blood pressure 113/61. Generally: This is a chronically ill-appearing, middle-aged male. He is in no acute distress. Head/eyes/ears/nose/throat: He does not have any drainage from his ears or nose. He does not have any white patches on his tongue. Neck: He does not have any stiffness. Lungs: There were bilateral rhonchi. Cardiovascular: Heart rate is regular. Abdomen: Soft and nontender. Neurologic: The patient is alert. He can move his extremities but he is very weak. There is no tremor. Extremities: The patient's left arm PICC is in place. There is no swelling or purulence coming from around the site. LAB AND RADIOLOGY: Chest x-ray shows stable bibasilar infiltrates. Creatinine is 0.5 GFR is greater than 60. CBC shows a white count of 12,010, hemoglobin 10.7 and platelet count 476,000. Blood gases show a pH of 7.51, a PO2 of 44 and a pCO2 of 49. ASSESSMENT AND PLAN: Patient has severe pneumonia. He has been on IV antibiotics for approximately 4 weeks. Yesterday, he was switched to doxycycline and Ceftin. The plan is to have him discharged today or tomorrow and then he will come back to our office in 2 weeks. In a period of approximately 6 weeks from when the patient got his IV immunoglobulin infusion, it will be repeated. If the level is low again then I think the patient would be a good candidate to receive IVIG on a monthly basis. COMORBIDITIES: Cigarette smoking, alcohol abuse, severe deconditioning, because of his chronic illness, protein calorie malnutrition, and the patient has an immunoglobulin deficiency as well. Comorbidities include cigarette smoking, alcohol abuse, severe deconditioning with weakness and protein calorie malnutrition. cc: Sergey Cruz MD
--- NOTE | 2018-11-06 03:24 | DISCHARGE SUMMARY ---
ADMISSION DATE: 10/08/2018 DISCHARGE DATE: 11/05/2018 LENGTH OF STAYS: Was 28 days. DISPOSITION: Home. FOLLOW-UP: 1. Will be with Dr. Cruz within [address] Eastman. CONSULTATION DURING THIS ADMISSION: 1. Pulmonary Medicine was consulted, patient was seen by Dr. Hernandez. 2. Infectious Disease was consulted. Patient was seen by Dr. Cruz. 3. Surgery was consulted. Patient was seen initially by Dr. Johansen. Follow up by Dr. Howard. ADMISSION DIAGNOSES: 1. Right lower lobe pneumonia. 2. Hyponatremia. 3. Hypomagnesemia. 4. Chronic alcohol abuse. DIAGNOSIS AT TIME OF DISCHARGE: 1. Acute hypoxemic respiratory failure. 2. Severe multifocal Streptococcal pneumoniae with bacteremia. 3. Status post cardiopulmonary arrest. Initial rhythm was bradycardia associated with pulseless electrical activity. Down time was about 3 minutes. 4. Septic shock secondary to multifocal pneumonia. 5. Necrotizing pneumonia with abscess formation. 6. Atrial fibrillation with rapid ventricular response. 7. Pulmonary embolism on CTA. 8. Chronic obstructive pulmonary disease. 9. Tobacco abuse prior to hospitalization, cessation has been counseled. DISCHARGE MEDICATIONS: 1. Cefuroxime 500 mg p.o. q.12 hours. 2. Diltiazem 180 mg daily. 3. Colace 100 mg b.i.d. 4. Eliquis 5 mg b.i.d. 5. MiraLAX. 6. Thiamine 100 mg p.o. daily. 7. Pantoprazole 40 mg daily. 8. Doxycycline 100 mg b.i.d. 9. Spiriva 2.5 mcg inhaler, 2 puffs daily. PRESENTING COMPLAINT: Cough and shortness of breath. HISTORY OF PRESENT COMPLAINT: Mr. Almanza is a 57-year-old male who is known to have COPD, went to the ER in [place] initially because of progressive worsening shortness of breath and cough. There was some bloody liquid sputum. The patient was evaluated, initial findings revealed a right lower lobe pneumonia. He was admitted for further medical care. HOSPITAL COURSE: The patient was initially admitted to [place], was placed on a BiPAP, had a short period of being unresponsive with the heart rate dropping to the 40s. Code blue was activated. Patient was immediately resuscitated with CPR and ACLS protocol, and intubated by Dr. Rojas. He was subsequently transferred from [place] to [facility] for higher level of care. HOSPITAL COURSE: Mr. Almanza was admitted to the ICU. He was seen by Pulmonary Medicine and Infectious Disease. He was started also on broad-spectrum IV antibiotics. Subsequently, his blood cultures came back to be positive of Streptococcus pneumoniae as well as his sputum culture. Antibiotics were tailored accordingly. Multiple imaging studies were done, including CT scans, some of which revealed bilateral airspace consolidation with air bronchograms, and there is also suggestion of abscess. The patient, however, improved remarkably with IV antibiotics. His hospitalization was a very prolonged 1, but little by little he became more active, he became more participatory. During the ICU stay, at 1 point, he was evaluated by surgery for a trach. However, he seems to have gotten better and he was successfully extubated. He was transferred to the medical floor, where he continued his medical care. He was also seen on daily basis by Physical Therapy. This morning, Mr. Almanza refers to be doing a lot better. Still has some residual shortness of breath. He has been evaluated for home oxygen and he qualifies. I did have a concern that he probably still has some abscess, so we did a CT scan of the chest, which shows some improved pulmonary edema, but there are still some bilateral pneumonia. There is a possible right lower lobe pulmonary abscess, but in general, I think Mr. Almanza clinically looking better and from ID standpoint, they think Mr. Almanza can be discharged. He would continue with p.o. antibiotics and follow up with Dr. Cruz in 2 weeks time with repeat imaging studies. Current vitals, blood pressure is 113/61, pulse of 84, respirations is 14, temperature is 97.9 degrees, patient is saturating 100% on 3 L. His physical exam is unremarkable, except for the chest, which there is still bronchial breath sounds, mostly to the right posterior lung field. There is also egophony, pectoriloquy, and crackles. There was no labs for this morning. Mr. Almanza is tolerating his diet and he also has had regular bowel movement. We think he is clinically stable for discharge. He has been advised to be compliant with the medications and to make sure that he follows up with ID 2 weeks. All of the discharge instructions have been discussed with him and he voiced understanding. TIME SPENT: For discharge is 40 minutes. cc: Yusuf Coker MD
== END 2018-11-05 17:22 | disposition home or self-care (01) | DRG 870 ==
LOC: P.ED 16:53 → P.MEDSURG 20:36 → SUATTDRO 20:36 → P.EDIPHOLD 23:58 → P.ICU 10-09 00:35 → ICU 10-09 15:39 → 3N 11-01 11:28
PROVIDERS: ATTEND Internal Medicine
CPT/HCPCS: 31500; 36430; 36569; 71010; 71020; 71045; 71046; 71250; 71260; 71275; 74019; 74020; 80048; 80053; 80076; 80202; 81001; 82040; 82533; 82550; 82607; 82728; 82746; 82784; 82805; 82948; 83540; 83550; 83605; 83735; 83880; 84100; 84132; 84134; 84295; 84484; 85014; 85018; 85025; 85027; 85045; 85610; 85730; 86850; 86900; 86901; 86920; 87040; 87070; 87077; 87186; 87205; 89220; 93005; 93010; 93306; 93970; 94002; 94003; 94150; 94640; 94660; 94760; 94761; 96365; 96366; 96367; 96375; 97110; 97162; 97530; 99285; 99291; A9270; C9113; J0131; J0171; J0330; J0456; J0461; J0610; J0696; J1160; J1561; J1630; J1650; J1940; J1956; J2060; J2185; J2248; J2370; J2765; J3370; J3411; J3475; J3480; J7030; J7040; J7050; J7070; P9016; P9047; Q9967; S0030; S0164; XXXXX

== ENCOUNTER 2019-04-07 14:27 | Inpatient (IN) ==
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
--- NOTE | 2019-04-07 15:35 | Diag Imaging Result Doc PS360 ---
CHEST-2 VIEWS - 04/07/2019 INDICATION: chest pain COMPARISON: 12/08/2018 FINDINGS: There has been significant improvement in the bibasilar infiltrates. There is some residual right perihilar infiltrate and right lower lobe infiltrate. The left lung is essentially clear. Heart size and pulmonary vascularity is normal. No pneumothorax or pleural effusion. IMPRESSION: Right perihilar infiltrate/pneumonia. Improved since the prior exam. Electronically signed by Mateo Campos 04/07/2019 3:33 PM
[2019-04-07 15:55] LABS: BASO# 0.03 X1000 (0.0-0.2); BASO% 0.4 % (0.0-0.8); EOS# 0.03 X1000 (0.0-0.7); EOS% 0.4 % (0.0-10.0); HEMATOCRIT 42.4 % (42.0-52.0); HEMOGLOBIN 14.9 g/dL (14.0-18.0); IMM GRAN# 0.04 X1000 (0.0-0.04); IMM GRAN% 0.5 % (0.0-0.5); LYMPH% 12.9 % (20.5-51.1); MCH 31.7 PG (27-31); MCHC 35.1 g/dL (33-37); MCV 90.2 FL (81-99); MONO# 0.72 X1000 (0.11-0.59); MONO% 8.4 % (1.7-9.3); MPV 8.3 FL (7.4-10.4); NEUT# 6.61 X1000 (1.4-6.5); NEUT% 77.4 % (42.2-75.2); PLT 226 X1000 (130-400); RDW 13.4 % (11.5-14.5); WBC 8.53 X1000 (4.8-10.8)
--- NOTE | 2019-04-07 15:56 | EKG Report ---
Test Performed on : 04/07/2019 3:14:49 PM Test Reason : chest pain Blood Pressure : / mmHG Vent. Rate : 072 BPM Atrial Rate : 072 BPM P-R Int : 196 ms QRS Dur : 084 ms QT Int : 418 ms P-R-T Axes : 036 -26 038 degrees QTc Int : 457 ms Normal sinus rhythm. Normal ECG When compared with ECG of 10-OCT-2018 12:03, Sinus rhythm. has replaced Atrial fibrillation. Questionable change in QRS duration Unconfirmed Result
[2019-04-07] MEDS ORDERED: ASPIRIN PO ONE (16:09)
[2019-04-07] MEDS ORDERED: NICODERM PATCH TD ONE (16:16)
[2019-04-07 16:25] LABS: AGAP 18; ALB/GLOB RATIO 1.5; ALBUMIN 4.1 g/dL (3.5-5.0); ALKALINE PHOSPHATASE 77 U/L (32-122); BUN 8 mg/dL (8-22); CALCIUM 8.6 mg/dL (8.8-10.2); CHLORIDE 98 mmol/L (98-107); CK PROFILE 77 U/L (24-204); COSMO 272; CREATININE 0.8 mg/dL (0.7-1.2); ESTIMATED GFR > 60; GLUCOSE 92 mg/dL (70-104); GOT 19 U/L (10-34); GPT 13 U/L (10-44); POTASSIUM 4.1 mmol/L (3.5-5.1); SODIUM 137 mmol/L (136-145); TCO2 21 mmol/L (25-35); TOTAL BILIRUBIN 0.37 mg/dL (0.20-1.00); TOTAL PROTEIN 6.8 g/dL (6.3-8.3)
[2019-04-07 16:34] LABS: INR 0.97; PROTIME 12.9 Seconds (11.0-16.0)
[2019-04-07] MEDS ORDERED: CARDIZEM LA PO ONE (18:23)
--- NOTE | 2019-04-07 18:56 | HISTORY AND PHYSICAL ---
PRIMARY CARE PROVIDER: None. REAL ESTATE LEGAL SECRETARY: Balwinder Eastman MD CHIEF COMPLAINT: Chest pain. HISTORY OF PRESENT ILLNESS: Mr. Almanza is a 58-year-old gentleman, who carries a past medical history of atrial fibrillation, pulmonary embolism, COPD, tobacco use and abuse, alcohol use, who came to the ED complaining of chest pain since 5:30 this a.m. associated with shortness of breath, bilateral jaw stiffness, and left arm tingling, occasional palpitations. Two sets of cardiac enzymes have been negative. He reports he has only been taking Coumadin that was changed in November from Eliquis, and he has run out of all his other medications and has not followed up or had his INR checked since November. He is not therapeutic. We will admit him to the medical telemetry floor and do a chest pain rule out. PAST MEDICAL HISTORY: 1. Atrial fibrillation. 2. Recent PE. 3. COPD. 4. Tobacco use and abuse. 5. Alcohol use. PAST SURGICAL HISTORY: None reported. FAMILY HISTORY: Noncontributory. SOCIAL HISTORY: He drinks a 6-pack of beer per week. He continues to smoke half a pack of cigarettes per day. He has used cocaine in the past. ALLERGIES: No known drug allergies. HOME MEDICATIONS: He reports he only takes Coumadin. REVIEW OF SYSTEMS: A 12-point review of systems complete and negative except for those mentioned in the HPI. PHYSICAL EXAMINATION: VITAL SIGNS: Temperature 98.2 degrees, heart rate 76, respirations 13, blood pressure 179/102, O2 is 99% on room air. GENERAL: Mr. Almanza is a 58-year-old male who is sitting up in the bed in no acute distress. HEENT: Atraumatic, normocephalic. PERRL. NECK: Supple. Trachea midline. CARDIOVASCULAR: S1, S2 appreciated. No murmurs, gallops, or rubs noted. RESPIRATORY: Lung sounds clear bilaterally. Bilaterally decreased in the bases GASTROINTESTINAL: Soft, nontender, nondistended. Positive bowel sounds 4 quadrants. LOWER EXTREMITIES: Negative for edema. Bilateral pedal pulses are palpable. NEUROLOGIC: No focal deficits noted. DIAGNOSTIC DATA: EKG: Normal sinus rhythm at 72 beats per minute. Chest x-ray: A right perihilar infiltrate, pneumonia, improved since prior exam. LABORATORY DATA: White count 8, hemoglobin 14, hematocrit 42, platelet count is 226,000. D-dimer is less than 0.27. INR 0.97. Sodium 137, potassium 4.1, BUN 8, creatinine 0.8, blood glucose is 92. Two sets of cardiac enzymes have been negative. ASSESSMENT AND PLAN: 1. Chest pain rule out. We will trend 1 more set of cardiac enzymes. Two sets have been negative. We will set him up for a stress test in the a.m. NPO after midnight. We will continue with full-dose aspirin, as he does not appear to be taking his Coumadin as prescribed. 2. History of atrial fibrillation. He has not been taking his Cardizem. We will reinitiate that back. 3. Chronic obstructive pulmonary disease. Does not appear to be in exacerbation. 4. Pulmonary embolism. On Coumadin. However, patient is not therapeutic. His D-dimer was negative. We will initiate him back on Coumadin. 5. Previous treatment for severe multifocal streptococcal PNA with bacteremia, as well as a necrotizing pneumonia with abscess formation. His imaging has greatly improved since his discharge back in October. He does not have a white count, not complaining of any productive cough. We will hold off on any antibiotics for now. Further recommendation to follow physician evaluation and laboratory and diagnostic data. Dictated by YING Gomez for Yusuf Coker MD cc: MD Balwinder Chacon MD MTDD
--- NOTE | 2019-04-07 19:06 | HISTORY AND PHYSICAL ---
ADDENDUM: I have seen and examined Mr. Almanza today. He came in because of an acute onset of chest pressure, retrosternal. He woke up with the discomfort which was associated with shortness of breath and tingling sensation in his left hand. Upon presenting to the emergency department, he was found to be slightly hypertensive. His blood pressure went up to 186/100 at some time. He was also slightly hypoxemic at some time, with O2 saturation of 87%. His current vital signs show a blood pressure 179/102, pulse of 76, respiration is 18, temperature is 98.2 degrees. His physical exam is remarkable for some crackles in the posterior right lung field but otherwise he is unremarkable. His laboratory data reveals normal CBC with normal chemistry, and initial troponin has been done twice, which is negative. His current EKG shows normal sinus rhythm; no ST-segment or T-wave abnormality. ASSESSMENT AND PLAN: 1. Atypical chest pain concerning for coronary artery disease. The patient will be admitted to rule out coronary artery disease. 2. Chronic obstructive pulmonary disease. I do not think the patient is currently in exacerbation. 3. Tobacco use and abuse prior to hospitalization. Cessation has been advised. 4. Necrotizing multifocal streptococcal pneumonia with bacteremia on last admission. A followup x-ray this morning seems to have remarkably improved. 5. Paroxysmal atrial fibrillation. The patient is currently in sinus. 6. Uncontrolled hypertension. We will start the patient on low-dose JOSHUA inhibitors. Please refer to the details of the history and physical which has been dictated by the nurse practitioner. cc: Yusuf Coker MD
[2019-04-07] MEDS ORDERED: COZAAR PO ONE (19:18)
[2019-04-07] MEDS ORDERED: NITROGLYCERIN SL PRN (19:56)
[2019-04-07] MEDS ORDERED: ZOFRAN IV PRN (19:56)
[2019-04-07] MEDS ORDERED: TYLENOL PO PRN (19:56)
[2019-04-07] MEDS ORDERED: COUMADIN PO SCH (21:00)
[2019-04-08] MEDS ORDERED: PRILOSEC PO SCH (07:00)
--- NOTE | 2019-04-08 07:11 | EKG Report ---
Test Performed on : 04/08/2019 06:46:40 AM Test Reason : cp Blood Pressure : / mmHG Vent. Rate : 061 BPM Atrial Rate : 061 BPM P-R Int : 192 ms QRS Dur : 088 ms QT Int : 440 ms P-R-T Axes : 046 -18 034 degrees QTc Int : 442 ms Normal sinus rhythm. Normal ECG When compared with ECG of 07-APR-2019 15:14, (Unconfirmed) No significant change was found Confirmed by Froilan Amanda MD ([id number]) on 04/09/2019 3:39:20 PM
--- NOTE | 2019-04-08 07:11 | Diag Imaging Result Doc PS360 ---
EXAM: CHEST-PORTABLE 04/08/2019 HISTORY: Chest Pain TECHNIQUE: AP portable at 0538 COMMENT: There is COPD with particular hyperinflation of the right upper lobe. There is flattening of the left hemidiaphragm. There is some platelike opacity over the left base which is worse than on 04/07/2019. Otherwise are has been no appreciable change considering differences in technique. IMPRESSION: Minimal left lower lobe atelectasis. COPD. Electronically signed by Anthony Bustamante 04/08/2019 7:09 AM
[2019-04-08] MEDS ORDERED: ASPIRIN PO SCH (09:00)
[2019-04-08] MEDS ORDERED: COZAAR PO SCH (09:00)
[2019-04-08 09:04] LABS: BASO# 0.03 X1000 (0.0-0.2); BASO% 0.4 % (0.0-0.8); EOS# 0.06 X1000 (0.0-0.7); EOS% 0.7 % (0.0-10.0); HEMATOCRIT 45.5 % (42.0-52.0); HEMOGLOBIN 15.9 g/dL (14.0-18.0); IMM GRAN# 0.03 X1000 (0.0-0.04); IMM GRAN% 0.4 % (0.0-0.5); LYMPH% 15.4 % (20.5-51.1); MCH 31.6 PG (27-31); MCHC 34.9 g/dL (33-37); MCV 90.5 FL (81-99); MONO# 0.89 X1000 (0.11-0.59); MONO% 10.5 % (1.7-9.3); MPV 8.4 FL (7.4-10.4); NEUT# 6.14 X1000 (1.4-6.5); NEUT% 72.6 % (42.2-75.2); PLT 215 X1000 (130-400); RBC 5.03 XMIL (4.7-6.1); RDW 13.8 % (11.5-14.5); WBC 8.45 X1000 (4.8-10.8)
[2019-04-08 09:20] LABS: PROTIME 13.3 Seconds (11.0-16.0)
[2019-04-08 09:58] LABS: AGAP 15; ALB/GLOB RATIO 1.4; ALBUMIN 4.2 g/dL (3.5-5.0); ALKALINE PHOSPHATASE 86 U/L (32-122); BUN 10 mg/dL (8-22); CALCIUM 9.1 mg/dL (8.8-10.2); CHLORIDE 100 mmol/L (98-107); CHOLESTEROL 191 mg/dL (0-200); COSMO 275; CREATININE 0.8 mg/dL (0.7-1.2); ESTIMATED GFR > 60; GLUCOSE 102 mg/dL (70-104); GOT 19 U/L (10-34); GPT 15 U/L (10-44); HDL 74 mg/dL (35-55); LDL 99 mg/dL; POTASSIUM 4.3 mmol/L (3.5-5.1); SODIUM 138 mmol/L (136-145); TCO2 23 mmol/L (25-35); TOTAL BILIRUBIN 0.83 mg/dL (0.20-1.00); TOTAL PROTEIN 7.2 g/dL (6.3-8.3); TRIGLYCERIDES 89 mg/dL (39-160); VLDL 18 mg/dL
--- NOTE | 2019-04-08 12:21 | ECHO REPORT ---
ORDER DATE: 04/08/2019 INDICATION: Chest pain, shortness of breath, hypertension, COPD, atrial fibrillation. FINDINGS: 1. Right atrium appears mildly enlarged at 4.2 cm. 2. Trace tricuspid regurgitation. RV systolic pressure of 34. 3. Normal RV size and systolic function. 4. No significant pulmonic insufficiency. 5. Normal left atrial size with a dimension of 3.4 cm. 6. No mitral valve prolapse. Trace mitral regurgitation. No evidence of mitral stenosis. 7. Normal LV size, end-diastolic dimension of 5.4. Normal wall thicknesses with a posterior and interventricular septal wall thickness of 0.9 cm each. Normal LV systolic function. Estimated EF of 60-65% with normal wall motion. 8. Aortic valve opens well. It is trileaflet. No evidence of stenosis or insufficiency. 9. Aorta appears in normal visualized segments. 10. No pericardial effusion seen. 11. There does not appear to be any clear evidence of significant change from the patient's echocardiogram in September of 2018. cc: Aristides Jiang MD
[2019-04-08] MEDS ORDERED: LEXISCAN ONE (12:41)
--- NOTE | 2019-04-08 12:41 | CONSULTATION ---
DATE OF CONSULTATION: 04/08/2019 IMPRESSION: 1. Episodic chest discomfort with mixed features for myocardial ischemia. Serial cardiac enzymes negative and electrocardiogram benign. 2. Previous atrial fibrillation. 3. Previous small pulmonary embolism earlier this year. 4. Inconsistent medical compliance. 5. Chronic obstructive pulmonary disease. 6. Chronic smoking. RECOMMENDATIONS: 1. I am going to agree with plans to pursue stress myocardial perfusion imaging given normal cardiac enzymes. 2. Smoking cessation strongly advised. 3. Patient counseled regarding need to be compliant with medical regimen. HISTORY: This 58-year-old white male with past history of previous small pulmonary embolus early this year, previous atrial fibrillation, COPD, and chronic smoking was admitted because of episodic chest discomfort. He reports episodic chest pain/pressure with some shortness of breath, as well as some "stiffness/pain" in his jaws. Episodes occurred several times yesterday. Symptoms do not seem to be exertional in nature. He has been on anticoagulation because of previous small pulmonary embolus. He has been out of his medications, and has not been taking anticoagulation. PAST MEDICAL HISTORY: 1. Previous small pulmonary embolus earlier this year. 2. Chronic obstructive pulmonary disease. 3. Previous episode of atrial fibrillation. 4. Chronic smoking. 5. Chronic obstructive pulmonary disease. 6. He has no known drug allergies. PAST SURGICAL HISTORY: None. MEDICATIONS PRIOR TO ADMISSION: As listed. SOCIAL HISTORY: He is . He is disabled. Lives at home. He smokes 1/2 pack of cigarettes per day for many years. He is still smoking. He does not use alcohol or illicit drugs. FAMILY HISTORY: Negative for premature coronary disease. REVIEW OF SYSTEMS: Pulmonary: Noncontributory beyond history of present illness. Gastrointestinal: Noncontributory beyond history of present illness. Remainder of review of systems negative/noncontributory beyond history of present illness with 14 total systems reviewed. PHYSICAL EXAMINATION: General: This is a middle-aged male in no distress. Vital signs: Blood pressure 145/73, heart rate 62, weight 150 pounds. HEENT exam: Extraocular muscles appear intact. Mucous membranes moist. Neck: Supple without jugular venous distention. There are no carotid bruits. Chest: Clear to auscultation bilaterally. Cardiac Exam: Reveals a regular rate and rhythm without appreciable murmur or gallop. Abdomen: Soft. Bowel sounds normal. Extremities: Without edema. PERTINENT DATA: Twelve lead EKG demonstrates normal sinus rhythm and is within normal limits. LABORATORY DATA: Includes sodium 138, potassium 4.3, chloride 100, carbon dioxide 23. BUN 10, creatinine 0.8, glucose 102, magnesium 2.0. Initial CPK 77, followup CPK 70. Troponin-T less than 0.01. White blood cell count 8.45, hematocrit 45.5, hemoglobin 15.9 platelet count 215. X-RAYS: Chest x-ray shows minimal left lower lobe atelectasis, but is otherwise without acute abnormality. cc: Boby Arndt MD
[2019-04-08 14:16] VITALS: BP 143/71
[2019-04-08] MEDS ORDERED: NICODERM PATCH TD SCH (14:30)
--- NOTE | 2019-04-08 14:31 | Diag Imaging Result Document ---
PROCEDURE NAME: MYOCARDIAL PERF SCAN, STR/REST - 04/08/2019 INDICATION: Chest pain. PROCEDURES PERFORMED: 1. Lexiscan stress. 2. One-day stress/rest myocardial perfusion imaging. PROCEDURE FINDINGS: LEXISCAN STRESS RESULTS: 1. Baseline EKG shows sinus rhythm. 2. Lexiscan stress did not demonstrate any clear evidence of ischemic-related EKG changes or significant arrhythmias. PERFUSION IMAGING RESULTS: 1. No evidence of abnormal extracardiac uptake. 2. TID ratio 0.99. 3. Perfusion imaging does not clearly demonstrate any evidence of ischemic changes. There is some gut uptake interfering with interpretation of the inferior and inferior septal areas. This actually seems to show improvement in perfusion in the inferior wall. Again, no clear evidence of defects on the stress imaging. 4. Normal ejection fraction of 73%. End-diastolic volume 127, end-systolic volume 34. Normal wall motion. cc: Aristides Jiang MD
[2019-04-08] MEDS: CARDIZEM LA PO SCH ×2 (14:39→14:40)
--- NOTE | 2019-04-09 05:41 | DISCHARGE SUMMARY ---
ADMISSION DATE: 04/07/2019 DISCHARGE DATE: 04/08/2019 CONSULTATIONS DURING ADMISSION: Cardiology was consulted. Patient was seen by Dr. Arndt. INVASIVE PROCEDURES DONE DURING ADMISSION: None. IMAGING STUDIES OF SIGNIFICANCE: 1. Myocardial perfusion scan was done which showed no perfusion. No evidence of ischemic changes with ejection fraction of 73% on the scan. 2. Echocardiogram shows ejection fraction of 60 to 65 percent with normal wall motion. ADMISSION DIAGNOSES: 1. Chest pain, ruled out. 2. History of atrial fibrillation. 3. Chronic obstructive pulmonary disease. 4. Pulmonary embolism. DISCHARGE DIAGNOSES: 1. Atypical chest pain with negative cardiac workup, presumably noncardiac. 2. Chronic obstructive pulmonary disease. 3. Tobacco use and abuse prior to hospitalization. Cessation has been advised. 4. History of necrotizing multifocal strep pneumoniae with bacteremia on previous hospitalization. 5. Paroxysmal atrial fibrillation, currently in sinus. The patient follows up Dr. Eastman. 6. Uncontrolled hypertension on presentation improved. 7. Previous history of pulmonary embolus. DISCHARGE MEDICATIONS: 1. Cefuroxime 500 mg q.12 to continue. 2. Diltiazem 180 p.o. daily. 3. Colace. 4. Metoprolol 25 b.i.d. 5. Thiamine 100 mg p.o. daily. 6. Pantoprazole 40 mg p.o. at bedtime. 7. Doxycycline. 8. Spiriva. 9. Losartan 25 mg p.o. daily. 10. Coumadin 7.5 p.o. at bedtime. 11. Combivent inhaler as needed. RECOMMENDATIONS: Mr. Almanza to do an INR on Saturday02/11/2019. Review it with his chief relay tester. PRESENTING COMPLAINT: Chest pain. HISTORY OF PRESENTING COMPLAINT: Mr. Almanza is a 58-year-old gentleman who was discharged from the hospital in mid October of this year after he spent 28 days in the hospital for hypoxemic respiratory failure, multifocal streptococcal pneumonia and bacteremia, necrotizing pneumonia with abscess formation. He was doing relatively okay at home. He actually went back, and started to smoke and started having some difficulty breathing associated with some chest pain which was thought to be atypical in presentation. Upon presenting to the emergency department, he was evaluated. He was also found to be remarkably hypertensive. At one point, his blood pressure was 186/100. He was admitted for further medical care. HOSPITAL COURSE: Mr. Almanza was admitted to the medical floor under tele monitoring. He was started on losartan for better blood pressure control. Cardiology was consulted. Echocardiogram and stress test were done. Troponins were also trended 3 times which were negative. Chest x-ray has actually showed improvement of the infiltrate that he had on the last admission. The results of the echo and stress test were both unremarkable. Today, Mr. Almanza refers to be doing well. He denies any more chest pain. He denies any difficulty breathing. His hemodynamic parameters are all within normal limits. His current blood pressure 143/71, pulse 72, respirations 18, and temperature is 98.1 degrees. We think Mr. Almanza is clinically stable for discharge. He is going to follow up with Dr. Eastman. We understand that Mr. Almanza's Eliquis was changed to Coumadin a couple of months ago because he was not able to afford it. INR on admission was 1.0. He is supposed to be on just 5 mg of Coumadin. This has been increased to 7.5. He has been advised to take this for 3 days. Repeat his INR on 02/11/2019, and follow up with his chief relay tester to make the pertinent changes depending on the INR. All the discharge instructions have been discussed with him. We did stress the utmost need and importance for tobacco cessation with Mr. Almanza, and he voiced understanding. TIME SPENT FOR DISCHARGE: 38 minutes. cc: Yusuf Coker MD
[2019-04-09] MEDS ORDERED: ASPIRIN PO SCH (09:00)
== END 2019-04-08 17:53 | disposition home or self-care (01) | DRG 313 ==
LOC: SUPCPDRO → ED 14:27 → 3N 14:27 → OBSVTOIN 18:29
PROVIDERS: ATTEND Internal Medicine